=== PATIENT | female | born 1945 | race Caucasian/White ===

== ENCOUNTER 2018-07-25 08:07 | Outpatient (REF) | payer MEDICARE, BC, SELFPAY ==
[2018-07-25 13:54] LABS: Anion Gap 6.5 mmol/L (3-11); BUN 10 mg/dL (7-18); CO2 30.5 mmol/L (21.0-32.0); CREATININE 0.71 mg/dL (0.55-1.02); Calcium 8.9 mg/dL (8.5-10.1); Chloride 102 mmol/L (98-107); Cholesterol 194 mg/dL (50-200); Glucose 94 mg/dL (70-100); HDL Cholesterol 91 mg/dL (40-60); LDL CHOLESTEROL 99 mg/dL (<100); Potassium 3.8 mmol/L (3.5-5.1); Sodium 139 mmol/L (136-145); Triglyceride 51 mg/dL (30-150)
== END 2018-07-25 08:27 ==
LOC: NCHCN 08:07
PROVIDERS: PCP Internal Medicine; Visit Provider Family Medicine
DX: I10 Essential (primary) hypertension (principal); Z13.6 Encounter for screening for cardiovascular disorders; Z13.1 Encounter for screening for diabetes mellitus
CPT/HCPCS: 80048; 80061; 83721

== ENCOUNTER 2019-11-09 10:45 | Outpatient (REF) | payer MEDICARE, BC, SELFPAY ==
[2019-11-09 12:39] LABS: HCT 43.3 % (36.0-46.0); HGB 13.9 g/dL (12.0-15.5); Mean Corp. HGB Concentration 32.1 g/dL (32.0-36.0); Mean Corpuscular Hemoglobin 30.3 pg (27.0-33.0); Mean Corpuscular Volume 94.5 fL (80-95); Mean Platelet Volume 10.5 fL (8.0-11.0); Platelet Count 221 x1000/uL (130-400); RBC 4.58 m/cumm (4.00-5.20); RBC Distribution Width 13.7 % (11.7-14.6); White Blood Cell Count 9.08 k/cumm (4.4-10.8)
[2019-11-09 13:06] LABS: ALT 17 U/L (14-59); AST 13 U/L (15-37); Albumin 3.7 g/dL (3.4-5.0); Alkaline Phosphatase 72 U/L (46-116); Anion Gap 4.8 mmol/L (3-11); BUN 15 mg/dL (7-18); Bilirubin, Total 1.3 mg/dL (0.2-1.0); CO2 33.2 mmol/L (21.0-32.0); CREATININE 0.63 mg/dL (0.55-1.02); Calcium 9.2 mg/dL (8.5-10.1); Calculated LDL 86 mg/dL; Chloride 104 mmol/L (98-107); Cholesterol 186 mg/dL (<200); Glucose 92 mg/dL (74-106); HDL Cholesterol 94 mg/dL (40-60); Potassium 4.4 mmol/L (3.5-5.1); Sodium 142 mmol/L (136-145); TSH (W/Ref FT4) 1.55 uIU/mL (0.36-3.74); Total Protein 6.6 g/dL (6.4-8.2); Triglyceride 34 mg/dL (<150)
== END 2019-11-09 11:05 ==
LOC: NCHCN 10:45
PROVIDERS: PCP Internal Medicine; Visit Provider Family Medicine
DX: E03.9 Hypothyroidism, unspecified (principal); I10 Essential (primary) hypertension; R53.83 Other fatigue; R30.0 Dysuria
CPT/HCPCS: 80053; 80061; 85027; 87077; 84443; 87086; 87186

== ENCOUNTER 2020-08-06 01:26 | Outpatient (CLI) | payer MEDICARE, BC, SELFPAY ==
--- NOTE | 2020-08-06 10:20 | ST.MBS_ITS ---
Modified Barium Swallow Date of service: 08/06/20 Study Findings: HPI: Patient is a 74 year old female, referred for VFSS/MBSS given reported worsening swallow function. 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 Pooling of residue in the cervical esophagus at the level of C5-C6 with occasional retrograde flow into the pyriform sinuses, cleared well with liquid wash. No laryngeal penetration/aspiration occurred on any of the administered consistencies. A 13 mm barium pill paused briefly at the GE junction before passing into the stomach. Overall, no significant change relative to previous exam dated 09/26/06. Per [facility] General Surgery documentation: (09/30/2010) Patient has been evaluated for a hoarse voice, was found to have functioning cords, and a 'weak soft palate'. 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 Patient assessed by FOOD SERVICE COUNTER CLERK in outpatient setting on 06/26/2020 for clinical swallowing evaluation and patient motivational interview. (See report dated 06/26/20 for further details) Subjective: frequent nasal regurgitation and increased effort with swallowing liquids, solids, and pills; globus when eating solid foods, occ coughing when eating/drinking; reports not drinking fluids during meals, only drinking liquids after completely finishing solid intake, given previous diagnosis of 'gastric dumping', patient notes this strategy along with maintaining a strict diet including gluten free foods, has greatly helped her GI symptoms at this time. Patient also reports longstanding history of xerostomia, partially managed with biotene however not consistently helpful, as well as dysguesia. Reports more frequent muscle fasciculations on L side of chin. EAT-10: 22 PILL-5: 3 Objective: Videofluoroscopic Swallow Study (VFSS) was conducted in the lateral and [id number] projections by Speech-Language Pathologist, in collaboration with Radiologist, to evaluate oropharyngeal swallow function. Anatomic view under fluoroscopy: WNL PO barium contrast trials: Oral barium Oral water soluble contrast was administered. Specifically, thin liquid EZPaque (60% w/v), Varibar nectar/mildly thick liquid (40% w/v), Varibar thin honey (moderately-thick) liquid (40% w/v), Varibar pudding (40% w/v), and solid coated in Varibar pudding. Of note: 40% w/v thin liquid oral barium/water soluble contrast not available at time of exam. Oral phase findings: Lip closure: WNL Tongue control:WNL Bolus preparation:WNL Oral residue:None Pharyngeal phase findings: Initiation of swallow: WNL Velar elevation: palatopharyngeal incompetence notable with larger bolus volumes and/or increase in rate of intake with thin liquids Laryngeal elevation: Mildy impaired Anterior hyoid excursion: Mildy impaired Epiglottic movement: WNL Laryngeal vestibule closure: WNL Pharyngeal stripping wave: mildly impaired Pharyngeal contraction: mildly impaired PES opening: mild-moderately impaired BOT retraction: mildly impaired Pharyngeal residue: Mild vallecular & pyriform sinus residue w/ thin liquid, which increased to a mild-moderate volume w/ more viscous consistencies and regular solid Esophageal findings: NOTE: This study was performed for interpretation only of the oropharyngeal and pharyngoesophageal domains of swallowing. It is not intended to diagnose any other radiologic abnormalities or substitute for a formal esophagram study. Esophageal clearance: Abnormal screening warranting further workup of esophageal motility; retention of contrast within the entire proximal-distal esophagus; roldan spect impaired peristalsis IDDSI Level 8-point Penetration-Aspiration Scale (PAS) [place] Pharyngeal Residue Severity Rating Scale [Valleculae/Pyriform Sinus] 0 - Thin liquid 2; penetration during swallo w with larger volume, spontaneously ejected from the larynx with initiation of swallow 3/3 1 - Slightly thick DNT DNT 2 - Mildly Thick 2; penetration during swallo w with larger volume, spontaneously ejected from the larynx with initiation of swallow 2/3 3- Moderately thick/Liquidised 1 3/2 4 - Extremely Thick/Pureed 1 4/2 5 - Minced & Moist DNT DNT 6 - Soft & Bite-Sized DNT DNT 7 - Regular/Wnvg-[id number]-Mjfx DNT DNT 7 - Regular 1 5/2 [13mm barium pill] DNT DNT Compensatory Swallow Strategies: Reduced bolus volume - effective in reducing pharyngeal residue, nasal regurgitation Reduced rate of intake - effective in reducing pharyngeal residue, nasal regurgitation Secondary swallow x1 - mildly effective in reducing pharyngeal residue Secondary swallow x2 - somewhat effective in reducing pharyngeal residue Thin liquid wash - most effective in reducing pharyngeal residue of thin/mildly/moderately thick liquids/pudding/solid Dysphagia Outcome and Severity Scale (ARAVIND): 5-6 Assessment: Swallow efficiency is significantly impaired, though swallow safety is preserved. Mild-moderate pharyngoesophageal dysphagia characterized by mild nasal regurgitation (palatopharyngeal incompetency notable once swallow is initiated), varied level of vallecular and pyriform sinus residue with all trialed consistencies; occasional laryngeal penetration; no evidence of aspiration with any trialed consistencies; pharyngoesophageal dysphagia likely due to late effects of radiation treatment s/p Hodgkin's Lymphoma, marked by diffuse/bilateral pharyngeal weakness. Abnormal esophageal clearance during screening, c/w suspected esophageal dysphagia warranting GI workup for suspected impaired esophageal motility. Some progressive changes noted relative to previous swallow physiology. Swallow prognosis is good-fair pending patient training in effective swallowing strategies as outlined, possible candidacy for palatal lift as appropriate. Plan: Diet recommendation: Regular solid (IDDSI Level 7)/Thin Liquid (IDDSI Level 0) diet. Solid diet modification is per pt?s preference; adjust solid diet at pt?s discretion. Risk management: Behavioral reflux precautions, including upright position during + 90 mins after meals. Follow intake of pill with secondary dry swallow and/or pause+thin liquid wash; may benefit from digital occlusion of nares to reduce nasal regurgitation. small bites/sips, alternate solid/liquid as able in context of gastric dumping recommendations from previous provider, multiple swallows per bolus. Control risk factors for aspiration pneumonia via (a) oral hygiene & (b) maintaining physical mobility as tolerated Specialist referrals: Gastroenterology evaluation for suspected changes in esophageal dysphagia. Outpatient FOOD SERVICE COUNTER CLERK to address pharyngoesophageal dysphagia management and training as appropriate, further assessment of articulation/resonance; may consider ENT or Cardiologist consult given hypernasal and mildly rough/hoarse vocal quality, pending motivational interview with FOOD SERVICE COUNTER CLERK. Ancillary tests: Consider Barium Esophagram and/or High Resolution Esophageal Manometry. Therapy: Recommend subsequent outpatient session with FOOD SERVICE COUNTER CLERK to review results of today's exam and develop treatment plan as appropriate. May address the following: trial of digital pressure manipulation techniques and/or compensatory swallowing strategies to address nasal regurgitation, discussion of palatal lift prosthesis and appropriate specialist referral(s); possible rationale for use of amplification device to address intelligibility in social/occupational environments, etc. Goal: N/A Follow-up exam: N/A Thank you for allowing me to take part in this patient's care. Please feel free to contact me with any questions/concerns. Melissa Zhao MA [facility]-FOOD SERVICE COUNTER CLERK Speech-Language Pathologist [place]#[phone] FOOD SERVICE COUNTER CLERK Service Code(s): Modified Barium Swallow Study 48656
--- NOTE | 2020-08-06 11:19 | DI.RAD_ITS ---
TECHNIQUE: Modified barium swallow was performed in conjunction with speech pathology. CONTRAST MATERIAL: Oral barium Oral water soluble contrast was administered. COMPARISON: No exams were available for comparison FINDINGS: Note that this is not a dedicated esophagram, distal esophagus not evaluated. There is no evidence of aspiration of thick or thin liquids, and barium coated semi-solid and solid f oods. Penetration of thin liquids was noted. Speech pathology report to follow. IMPRESSION: No evidence of aspiration. Speech pathology report to follow.
[2020-08-06] MEDS: Barium Sulfate Oral Paste 40% W/V 230 ML TUBE PO (11:23)
[2020-08-06] MEDS: Barium Sulfate 60% W/V 355 ML BTL PO (11:26)
--- NOTE | 2020-08-28 14:50 | AMB.SPSTP ---
Date of Service August 28, 2020 Subjective Patient arrived early for session, reports pain in lower right back (substantial in AM at 8/10, reduced to 5-6/10 with 2 Tylenol) per report, however willing to participate in motivational interview and review of MBSS/VFSS results with accompanying video recordings. Pt took part in discussion re: recommendations for both pharyngoesophageal swallow function efficiency and comfort, as well as potential directions to address speech (articulation/resonance) difficulties related to palatopharyngeal incompetence. Pt agreeable to all recommendations as reviewed today, however stated she may wait until COVID is over to address more appts right away, although she is glad to know that there are options to address her speech/swallowing concerns. Objective Pharmaceutical Representative Goals: N/A Short Term Goals: N/A Assessment Patient administered MARK [Speech Handicap Index]: 37/90, with 0=no difficulty and 90= severe difficulty Dysguesia rated on scale of 1-10 (10=Normal/baseline) Smell: 7-8/10 Taste: 7-8/10 Reports recent change/decline from baseline in past ~4 years. Patient continues to demonstrate pharyngoesophageal dysphagia per MBSS/VFSS (see [facility] CHINESE LANGUAGE PROFESSOR report dated 08/06/20) as well as hypernasal speech patterns likely related to palatopharyngeal incompetence s/p radiation hx for Hodgkin's Lymphoma; pt is open to trialing behavioral strategies for both speech/swallowing improvements as outlined today; patient will likely benefit from GI consult for repeat esophagram (per documentation and patient interview, last esophagram was approx. 10 years ago), rn review to inquire re: candidacy for palatal prosthesis as appropriate, and use of vocal amplification device per availability as compensatory technique for functional communication tasks (on the telephone, etc). 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 Patient does benefit from use of increased vocal intensity, conscious exaggeration of words with identified (aforementioned) phonemes, and reduced rate of speech to compensate for this articulatory issue, patient likely to benefit from further CHINESE LANGUAGE PROFESSOR services once velar and esophageal deficiencies are addressed, likely mechanically, given report of atrophied velum and history of esophageal difficulties. Patient is able to demonstrate all reviewed compensatory strategies as outlined today with 100% return demonstration and/or comprehension, and instructed to contact PCP or CHINESE LANGUAGE PROFESSOR if further concerns or questions arise re: speech/swallowing changes. Recommendations: 1. Recommend GI consult; consider esophagram given outcomes from most recent modified barium swallow study performed 08/06/20 2. Consider following strategies for improving efficiency of swallow: plug nose when attempting larger volumes and/or drinking more quickly (ie successive drinks, or through a straw) to address the pressure imbalance you are experiencing from your soft palate weakness; consider 2-3 additional swallows after each bite or at least after taking pills if only able to take with thin liquids - follow with conscious hard and fast swallow. 3. Consider consulting with a Fish Cutting Machine Operator to inquire re: candidacy for palatal prosthesis as appropriate 4. Consider the LESS strategy we discussed when speaking, or you might try looking for a voice amplification system (can be found online) to use in the meantime to help with increasing the volume of the phonemes/words you are having difficulty with, to see if this helps with communication in the meantime. We also touched base on some diaphragmatic breathing techniques and discussed benefits of RMST if you are interested in the future, to address your cough strength. Plan No further CHINESE LANGUAGE PROFESSOR services warranted at this time, however patient may benefit from further CHINESE LANGUAGE PROFESSOR services if/when she decides to move forward with any kind of palatal prosthesis or if changes with her swallowing function occur/if she decides she is interested in exploring RMST or further pharyngeal swallow exercises after GI consult. Thank you for allowing me to take part in Payton's care. Please feel free to reach out with any questions/concerns. Melissa Zhao MA [facility]-CHINESE LANGUAGE PROFESSOR CHINESE LANGUAGE PROFESSOR Service Codes: 19240, [id number] Coding
== END 2020-08-06 01:46 ==
PROVIDERS: PCP Internal Medicine; Visit Provider Family Medicine
DX: R13.14 Dysphagia, pharyngoesophageal phase (principal)
CPT/HCPCS: 92526; 92611; 74221; 92507; J3490

== ENCOUNTER 2020-12-24 13:49 | Outpatient (REF) | payer MEDICARE, BC, SELFPAY | END 2020-12-24 13:50 | disposition home or self-care (01) | LOC: NCHCN 13:49 | PROVIDERS: PCP Internal Medicine; Visit Provider Family Medicine | DX: R30.0 Dysuria (principal) | CPT/HCPCS: 87086 ==

== ENCOUNTER 2021-03-10 01:45 | Outpatient (CLI) | payer MEDICARE, BC, SELFPAY ==
--- NOTE | 2021-03-10 | DI.US_ITS ---
EXAM: US SOFT TISSUE HEAD OR NECK CLINICAL HISTORY: NECK MASS, R22.1. TECHNIQUE: Ultrasound was performed using standard protocol. COMPARISON: No exams were available for comparison FINDINGS: Sonographic assessment utilizing grayscale and color Doppler imaging was performed and targeted to th e area of clinical concern. The patient appears to be status post right thyroidectomy. There is soft tissue on the left consiste nt with residual thyroid tissue. It measures 2.6 x 1.5 x 1.8 cm. It shows normal vascularity. It i s heterogeneous. There is a 0.8 x 0.6 x 0.8 cm solid isoechoic well-marginated nodule in the left th yroid gland. This is consistent with a TI-RADS level 3 nodule. Benign-appearing lymph nodes are seen in the neck bilaterally. The largest on the left measures 0.8 x 0.2 x 0.6 cm. The largest on the right measures 0.9 x 0.2 x 0.7 cm. IMPRESSION: 1. Status post right thyroidectomy. Please correlate with the patient's surgical history. 2. Residual left thyroid tissue with a 0.8 cm left thyroid nodule. 3. Unremarkable bilateral lymph nodes. DATA REPOSITORY:
--- NOTE | 2021-03-10 14:24 | DI.MAMMO_ITS ---
EXAM: MG MAMMO SCREENING CLINICAL HISTORY: SCREENING, Z12.31. TECHNIQUE: Bilateral full field digital CC and MLO mammographic images were obtained with 3D tomosyn thesis and utilizing computer aided detection (CAD). COMPARISON: Prior mammograms dating back to 2013, the most recent being January 2018. FINDINGS: There are no CAD designations There are no new spiculated masses nor malignant appearing microcalcification groups. There is no significant architectural distortion nor skin thickening-retraction. IMPRESSION: No radiographic evidence of malignancy. BI-RADS Category 1 - Negative Breast Density - Category B - Scattered areas of fibroglandular density Breast density Category C or D implies that the patient has dense breast tissue. Dense breast tissue can make it harder to find cancer on a mammogram. Dense breast tissue is also associated with an incr eased risk of breast cancer. This information about the result of the mammogram report was provided to the patient to raise their awareness. Use this report when you speak with the patient about their risks for breast cancer, which includes their family history. At that time, you may recommend additional screening tests (Ultrasoun d or MRI) as these tests may add significant information. A negative radiographic report should not delay biopsy if a dominant or clinically suspicious mass is present. Up to ten percent of cancers are not identified on mammography. A negative report may reinforce clinical impression. Adenosis and dense breasts may obscure an underlying neoplasm. False positive reports average 6 to 10%. Patient will receive a letter notifying them of these results.
== END 2021-03-10 02:05 ==
PROVIDERS: PCP Family Medicine; Visit Provider Family Medicine
DX: Z12.31 Encounter for screening mammogram for malignant neoplasm of breast (principal); R22.1 Localized swelling, mass and lump, neck; E04.1 Nontoxic single thyroid nodule
CPT/HCPCS: 76536; 77063; 77067

== ENCOUNTER 2021-06-30 13:16 | Outpatient (REF) | payer MEDICARE, BC, SELFPAY | END 2021-06-30 13:17 | disposition home or self-care (01) | LOC: NCHCN 13:16 | PROVIDERS: PCP Family Medicine; Visit Provider Family Medicine | DX: R30.0 Dysuria (principal) | CPT/HCPCS: 87086 ==

== ENCOUNTER 2021-09-09 22:01 | Outpatient (REF) | payer MEDICARE, BC, SELFPAY | END 2021-09-09 22:02 | disposition home or self-care (01) | LOC: NCHCN 22:01 | PROVIDERS: PCP Family Medicine; Visit Provider Family Medicine | DX: R30.0 Dysuria (principal) | CPT/HCPCS: 87086 ==

== ENCOUNTER 2021-11-18 08:44 | Outpatient (REF) | payer MEDICARE, BC, SELFPAY ==
[2021-11-18 16:02] LABS: ALT 19 U/L (14-59); AST 16 U/L (15-37); Albumin 3.9 g/dL (3.4-5.0); Alkaline Phosphatase 64 U/L (46-116); Anion Gap 7.1 mmol/L (3-11); BUN 26 mg/dL (7-18); Bilirubin, Total 1.3 mg/dL (0.2-1.0); CO2 31.9 mmol/L (21.0-32.0); CREATININE 0.7 mg/dL (0.55-1.02); Calcium 9.3 mg/dL (8.5-10.1); Calculated LDL 105 mg/dL (<100); Chloride 103 mmol/L (98-107); Cholesterol 214 mg/dL (<200); Glucose 90 mg/dL (74-106); HDL Cholesterol 101 mg/dL (40-60); Potassium 4.4 mmol/L (3.5-5.1); Sodium 142 mmol/L (136-145); Total Protein 6.7 g/dL (6.4-8.2); Triglyceride 42 mg/dL (<150)
== END 2021-11-18 08:45 | disposition home or self-care (01) ==
LOC: NCHCN 08:44
PROVIDERS: PCP Family Medicine; Visit Provider Family Medicine
DX: I10 Essential (primary) hypertension (principal); R53.1 Weakness; E20.9 Hypoparathyroidism, unspecified; Z00.00 Encounter for general adult medical examination without abnormal findings
CPT/HCPCS: 80053; 80061

== ENCOUNTER 2022-05-03 09:12 | Inpatient (IN) | payer MEDICARE, BC, SELFPAY ==
[2022-05-03] VITALS (100 sets, daily range): BP systolic 80–133; BP diastolic 44–78; PULSE 57–79; RESP 11–25; TEMP 36.4–37.9; O2SAT 90–100
[2022-05-03 10:02] LABS: Abs Immature Grans 0.04 10^3/uL (0.0-0.06); Absolute Basophil Count 0.02 10^3/uL (0.0-0.2); Absolute Lymphocyte Count 0.26 10^3/uL (1.2-3.4); Absolute Monocyte Count 0.44 10^3/uL (0.1-0.8); Absolute Neutrophil Count 9.26 10^3/uL (1.2-6.7); Basophils % 0.2; HCT 28.9 % (36.0-46.0); HGB 9.3 g/dL (11.2-15.7); Immature Grans % 0.4; Lymphocytes % 2.6; MCH 30.5 pg (27.0-33.0); MCHC 32.2 % (32.0-36.0); MCV 95 fL (80-95); MPV 9.7 fL (8.0-11.0); Monocytes % 4.4; Neutrophils % 92.4; Platelet Count 194 10^3/uL (130-400); RBC 3.05 10^6/uL (3.93-5.22); RDW 13.4 % (11.7-14.6); RDW-SD 46.6 fL; WBC 10.02 10^3/uL (4.4-10.8)
[2022-05-03] MEDS: Normal Saline 500 ML IV ×2 (10:05→10:53)
[2022-05-03 10:11] LABS: Lactate 1.2 mmol/L (0.6-1.4)
--- NOTE | 2022-05-03 10:11 | W.ED.GENAD ---
Discharge Plan Disposition Patient Disposition: [facility] INPATIENT Condition: Fair Discharge Details Chief Complaint: GI Bleed Clinical Impression: GI bleed Admit Date/Time: 05/03/22 11:29 Admit Provider: Mabel Manzano Attending Provider: Mabel Manzano Primary Care Provider: Gloria Fischer ED Provider: Eveiln Ruiz Discharge Instructions Activity:: Activity as Tolerated Equipment/Supplies:: No Equipment Needed Diet:: Normal Diet Discharge Data Discharge Date/Time-TO BE ENTERED AT DEPARTURE: 05/03/22 12:02 Medical Decision Making Payton Thomas is a 76-year-old woman with a history of hypertension, hypothyroidism presenting to emergency department with rectal bleeding. Patient is accompanied by a family member who also provides a history. Patient reports that for the past 4 or 5 days she has had bright red blood mixed in with her stool. Patient reports that her bowel movements seem to be mostly bright red blood at this point. She has not noticed any dark or black stool. She has had no pain, no vomiting, no shortness of breath no cough no swelling no rash no numbness, no focal weakness. Patient reports that over the past few days she has felt generally weak. She has never had rectal bleeding in the past. Patient reports that she falls frequently, and has been doing so over the past year. Patient reports that she does not hit her head and never loses consciousness. She is unsure whether falls are due to tripping (mechanical) versus feeling lightheaded. Patient reports that falls have not increased or change in the past few weeks, did have a fall on her driveway a few days ago, did not hit her head, did not lose consciousness, reports no pain or injuries. Patient reports that she has difficulty swallowing at baseline, and has had decreased p.o. intake over the past few months in general. Has had some weight loss over that time. On exam patient is somewhat pale, nontoxic-appearing, alert, conversing normally. Abdominal exam is benign. Rectal exam shows a moderate amount of hematochezia. Blood pressure 80/45. Concern for lower GI bleed versus upper GI bleed, possible dehydration, other. Exam/history at this time is not consistent with arrhythmia, acute emergent intracranial process, sepsis, mesenteric ischemia, acute coronary syndrome. Plan for 2 18-gauge IVs, 500 cc normal saline, 1 unit uncrossed blood, screening labs, telemetry, Protonix out of abundance of caution as low suspicion for upper versus lower GI bleed. Plan for emergent uncrossed blood as patient with significant hypotension in setting of apparent active GI bleed of unknown source. Patient with hemoglobin 9.3. Will give additional 500 cc of normal saline as dehydration may also be contributing to patient's hypotension, would expect lower hemoglobin at this time given 4 to 5 days of consistent bleeding if hypotension from hemorrhage alone. I discussed patient presentation results with Dr. Manzano of surgery, who requested TXA be given, will see patient at bedside. Patient with persistent hypotension, systolic blood pressure 80. Vasopressin ordered pending fluid boluses. Systolic blood pressure 93. We will hold vasopressin at this time. Dr. Manzano at bedside, will admit patient to ICU for likely diverticular bleed. Systolic blood pressure now 107. Medical Records Medical records reviewed: Yes I reviewed the patient's medical records. Lab Data Lab results reviewed: Yes I reviewed the patient's lab results. Labs: Laboratory Tests Range/Units 05/03/22 05/03/22 05/03/22 09:53 09:53 09:53 WBC (4.4-10.8) 10^3/uL 10.02 RBC (3.93-5.22) 10^6/uL 3.05 L Hgb (11.2-15.7) g/dL 9.3 L Hct (36.0-46.0) % 28.9 L MCV (80-95) fL 95 MCH (27.0-33.0) pg 30.5 MCHC (32.0-36.0) % 32.2 RDW (11.7-14.6) % 13.4 Plt Count (130-400) 10^3/uL 194 MPV (8.0-11.0) fL 9.7 Immature Gran % 0.4 Neutrophils % 92.4 Lymphocytes % 2.6 Monocytes % 4.4 Eosinophils % 0.0 Basophils % 0.2 Nucleated RBC % (0.0-0.3) % 0.0 Absolute Neutrophils (1.2-6.7) 10^3/uL 9.26 H Absolute Lymphocytes (1.2-3.4) 10^3/uL 0.26 L Absolute Monocytes (0.1-0.8) 10^3/uL 0.44 Absolute Eosinophils (0.0-0.7) 10^3/uL 0.00 Absolute Basophils (0.0-0.2) 10^3/uL 0.02 PT (9.3-11.0) sec 9.9 INR (0.9-1.1) 1.0 VBG Lactate (0.6-1.4) mmol/L Sodium (136-145) mmol/L 136 Potassium (3.5-5.1) mmol/L 4.0 Chloride (98-107) mmol/L 102 Carbon Dioxide (21.0-32.0) mmol/L 26.1 Anion Gap (3-11) mmol/L 7.9 BUN (7-18) mg/dL 30 H Creatinine (0.55-1.02) mg/dL 1.0 Estimated GFR/1.73 m2 (mL/min/1.73m2) 54.05 Glucose (74-106) mg/dL 133 H Calcium (8.5-10.1) mg/dL 8.4 L Total Bilirubin (0.2-1.0) mg/dL 0.9 AST (15-37) U/L 11 L ALT (14-59) U/L 14 Alkaline Phosphatase (46-116) U/L 41 L Total Protein (6.4-8.2) g/dL 5.5 L Albumin (3.4-5.0) g/dL 2.9 L TSH (0.36-3.74) uIU/mL Free T4 (0.76-1.46) ng/dL COVID-19 Source Patient ABO/Rh Antibody Screen Crossmatch Range/Units 05/03/22 05/03/22 05/03/22 09:53 09:58 10:04 WBC (4.4-10.8) 10^3/uL RBC (3.93-5.22) 10^6/uL Hgb (11.2-15.7) g/dL Hct (36.0-46.0) % MCV (80-95) fL MCH (27.0-33.0) pg MCHC (32.0-36.0) % RDW (11.7-14.6) % Plt Count (130-400) 10^3/uL MPV (8.0-11.0) fL Immature Gran % Neutrophils % Lymphocytes % Monocytes % Eosinophils % Basophils % Nucleated RBC % (0.0-0.3) % Absolute Neutrophils (1.2-6.7) 10^3/uL Absolute Lymphocytes (1.2-3.4) 10^3/uL Absolute Monocytes (0.1-0.8) 10^3/uL Absolute Eosinophils (0.0-0.7) 10^3/uL Absolute Basophils (0.0-0.2) 10^3/uL PT (9.3-11.0) sec INR (0.9-1.1) VBG Lactate (0.6-1.4) mmol/L 1.2 Sodium (136-145) mmol/L Potassium (3.5-5.1) mmol/L Chloride (98-107) mmol/L Carbon Dioxide (21.0-32.0) mmol/L Anion Gap (3-11) mmol/L BUN (7-18) mg/dL Creatinine (0.55-1.02) mg/dL Estimated GFR/1.73 m2 (mL/min/1.73m2) Glucose (74-106) mg/dL Calcium (8.5-10.1) mg/dL Total Bilirubin (0.2-1.0) mg/dL AST (15-37) U/L ALT (14-59) U/L Alkaline Phosphatase (46-116) U/L Total Protein (6.4-8.2) g/dL Albumin (3.4-5.0) g/dL TSH (0.36-3.74) uIU/mL 0.31 L Free T4 (0.76-1.46) ng/dL 1.38 COVID-19 Source Patient ABO/Rh O Positive Antibody Screen NEGATIVE Crossmatch See Detail Range/Units 05/03/22 11:32 WBC (4.4-10.8) 10^3/uL RBC (3.93-5.22) 10^6/uL Hgb (11.2-15.7) g/dL Hct (36.0-46.0) % MCV (80-95) fL MCH (27.0-33.0) pg MCHC (32.0-36.0) % RDW (11.7-14.6) % Plt Count (130-400) 10^3/uL MPV (8.0-11.0) fL Immature Gran % Neutrophils % Lymphocytes % Monocytes % Eosinophils % Basophils % Nucleated RBC % (0.0-0.3) % Absolute Neutrophils (1.2-6.7) 10^3/uL Absolute Lymphocytes (1.2-3.4) 10^3/uL Absolute Monocytes (0.1-0.8) 10^3/uL Absolute Eosinophils (0.0-0.7) 10^3/uL Absolute Basophils (0.0-0.2) 10^3/uL PT (9.3-11.0) sec INR (0.9-1.1) VBG Lactate (0.6-1.4) mmol/L Sodium (136-145) mmol/L Potassium (3.5-5.1) mmol/L Chloride (98-107) mmol/L Carbon Dioxide (21.0-32.0) mmol/L Anion Gap (3-11) mmol/L BUN (7-18) mg/dL Creatinine (0.55-1.02) mg/dL Estimated GFR/1.73 m2 (mL/min/1.73m2) Glucose (74-106) mg/dL Calcium (8.5-10.1) mg/dL Total Bilirubin (0.2-1.0) mg/dL AST (15-37) U/L ALT (14-59) U/L Alkaline Phosphatase (46-116) U/L Total Protein (6.4-8.2) g/dL Albumin (3.4-5.0) g/dL TSH (0.36-3.74) uIU/mL Free T4 (0.76-1.46) ng/dL COVID-19 Source Nasal/Nares Patient ABO/Rh Antibody Screen Crossmatch HPI General Mode of arrival: ambulatory. Date/Time Provider Initiated Documentation: 05/03/22 09:31. Limitations to Documentation: no limitations. Information obtained by: patient, family, RN notes reviewed and old records reviewed. HPI Narrative: Payton Thomas is a 76-year-old woman with a history of hypertension, hypothyroidism presenting to emergency department with rectal bleeding. Patient is accompanied by a family member who also provides a history. Patient reports that for the past 4 or 5 days she has had bright red blood mixed in with her stool. Patient reports that her bowel movements seem to be mostly bright red blood at this point. She has not noticed any dark or black stool. She has had no pain, no vomiting, no shortness of breath no cough no swelling no rash no numbness, no focal weakness. Patient reports that over the past few days she has felt generally weak. She has never had rectal bleeding in the past. Patient reports that she falls frequently, and has been doing so over the past year. Patient reports that she does not hit her head and never loses consciousness. She is unsure whether falls are due to tripping (mechanical) versus feeling lightheaded. Patient reports that falls have not increased or change in the past few weeks, did have a fall on her driveway a few days ago, did not hit her head, did not lose consciousness, reports no pain or injuries. Patient reports that she has difficulty swallowing at baseline, and has had decreased p.o. intake over the past few months in general. Has had some weight loss over that time. Related Data Home Medications Medication Instructions Recorded Confirmed levothyroxine 150 mcg tablet 150 mcg PO DAILY 08/19/14 05/03/22 lisinopril 10 mg tablet 10 mg PO DAILY 08/19/14 05/03/22 acetaminophen 650 mg tablet 1,300 mg PO BID PRN 05/03/22 05/03/22 aspirin 81 mg tablet 81 mg PO DAILY 05/03/22 05/03/22 cholecalciferol (vitamin D3) 25 2 tab PO DAILY 05/03/22 05/03/22 mcg (1,000 unit) tablet ibuprofen 200 mg tablet (IBU-200) 400 mg PO Q4-5H PRN 05/03/22 05/03/22 Allergies Allergy/AdvReac Type Severity Reaction Status Date / Time No Known Allergies Allergy Unverified 05/03/22 11:26 General Stated Complaint: GI Bleed DAMON: 3 Review of Systems Narrative: Constitutional: denies fevers, reports generalized weakness, decreased appetite Eyes: denies eye pain ENT: denies ear pain, dental pain, sore throat Cardiovascular: denies chest pain, edema Respiratory: denies SOB, cough GI: denies abdominal pain, vomiting, diarrhea, reports bright red blood per rectum : denies flank pain MSK: denies back pain, neck pain, arthralgias, myalgias Skin: denies rash Neuro: denies headaches, numbness, focal weakness PFSH All Active Problems (Updated 05/05/22 @ 14:37 by Evelin Ruiz MD) GI bleed (Chronic) Postcholecystectomy diarrhea (Acute) Disorder of palatine bone (Acute) Pharyngoesophageal dysphagia (Acute) Hypotension due to blood loss (Acute) Anemia due to blood loss, acute (Acute) Acute lower GI bleeding (Acute) Diverticula of colon (Acute) Hypertension (Chronic) Hypothyroidism (Chronic) H/O Hodgkin's lymphoma (Chronic) Medical History History of Hodgkin's disease Hypertension Hypothyroidism Surgical History Cholecystectomy H/O surgical procedure (10/24/14) a. cholecystectomy 10/25/14 S/P hernia repair Status post laparoscopic repair of epigastric port hernia w/ mesh. following cholecystectomy in 2014 thyroidectomy Social History Smoking/Tobacco Use Status: Former Tobacco Use Smoking risk assessment performed?: Yes Alcohol Intake: current Alcohol Intake frequency: holidays/special occasions only Alcohol type: wine Drug use: Never Substance use type: does not use Do you feel safe at home: Yes Do you feel safe in your relationship?: Yes Exam Narrative Exam Narrative: Constitutional: well and [id number], pleasant, conversing normally HENT: head atraumatic/normocephalic/normal inspection, mucous membranes moist Eyes: conjunctiva normal, sclera normal, pupils 3mm b/l Neck: no stridor, normal ROM, trachea midline Chest: normal inspection Resp: normal work of breathing, speaking in full sentences Cardio: normal rate, normal rhythm GI: abdomen soft, non-tender, non-distended, rectal exam shows no hemorrhoids, positive for gross hematochezia, no melena Back: normal inspection, no rash Skin: warm, dry, normal color, no rash Neuro: alert, not altered, grossly non-focal, normal tone Ext: no edema, no posterior calf tenderness to palpation, DP pulses intact and symmetric Psych: normal mood, normal affect, normal behavior Course Vital Signs Vital signs: Vital Signs Temperature 36.8 C 05/03/22 09:19 Pulse 77 05/03/22 09:19 Respiratory Rate 16 05/03/22 09:19 Blood Pressure 89/57 L 05/03/22 09:19 Pulse Oximetry 97 05/03/22 09:19 Temperature 36.8 C 05/03/22 09:19 Temperature Source Temporal Artery Scan 05/03/22 09:19 Pulse 77 05/03/22 09:19 Respiratory Rate 16 05/03/22 09:19 Respiratory Effort Non-Labored 05/03/22 09:25 Blood Pressure 89/57 L 05/03/22 09:19 Blood Pressure Position Supine 05/03/22 09:19 Pulse Oximetry 97 05/03/22 09:19 Oxygen Delivery Method Room Air 05/03/22 09:19 Oxygen Flow Rate 0 05/03/22 09:19 Pain Level 0 05/03/22 09:25 Lab/Test Results Lab/Test Results: Laboratory Tests Range/Units 05/03/22 09:53 Crossmatch See Detail Critical Care Time Critical Care Time Critical Care Time: Yes Total Critical Care Time: 40 Attestation: I spent 40 minutes of critical care time with this patient including frequent bedside reassessments, discussion with consultants, discussion with patient and family. PAWSS Have you Been Recently Intoxicated or Drunk Within the Last 30 days?: No Have you Ever Experienced Previous Episodes of Alcohol Withdrawal?: No Have you ever Experienced Withdrawal Seizures?: No Have you ever Experienced Delirium Tremens(DT)s?: No Have you ever undergone Alcohol Rehabilitation Treatment (i.e, inpt ot outpatient treatment programs)?: No Have you ever Experienced Blackouts?: No Have you ever Combined Alcohol with other Downers within the last 90 days?: No Have you ever Combined Alcohol with any other Substance of Abuse during the last 90 days?: No Result: 0
[2022-05-03 10:19] LABS: Prothrombin Time 9.9 sec (9.3-11.0)
--- NOTE | 2022-05-03 10:19 | SCONE_ITS ---
Date of service: 05/03/22 Time of Service: 10:30 Assessment and Plan Assessment and plan (1) S/P hernia repair: (2) Hypertension: Status: Chronic (3) Hypothyroidism: Status: Chronic (4) H/O Hodgkin's lymphoma: Status: Chronic Assessment and plan: Radiation at age 16 Last mammogram was 2020 and was normal (5) Diverticula of colon: Status: Acute (6) Acute lower GI bleeding: Status: Acute Assessment and plan: -Rectal exam is negative for mass patient states she is on full dose aspirin daily. Her med list that she was on a baby aspirin daily. Patient states she was just taking it at home for on her. She denies any prior heart attack or stroke or valvular heart disease. -She has been also taking ibuprofen regularly for back pain- once or twice a week. Mostly she just takes Tylenol - anoscopy exam today is negative for tumor or hemorrhoidal disease.. Blood is dark in nature and not bright red. -She has sigmoidal diverticula noted on colonoscopy in 2013. -Patient will be admitted to the ICU for further monitoring and hemodynamic stabilization. Hopefully we will plan on colonoscopy and EGD in a.m. Informed consent is obtained for the procedural (explained in simple layman's terms that the pt. and/or family could understand) explaining risks vs benefits and alternatives to the procedure and consequences if we do not do the procedure and need/rational for the procedure. Risks include but are not limited to: bleeding, infection, perforation of esophagus, stomach, colon, small intestines, bronchus or trachea, or PTX. This would necessitate emergency surgery to repair the damage w/ possible ostomy; and other associated complications w/ the required surgery. Also complications of anesthesia including aspiration, MD/CVA/. 90 minutes spent in consultation today (7) Anemia due to blood loss, acute: Status: Acute Assessment and plan: Patient received 1 L saline bolus in ED Patient received 1 unit packed RBC in ED Patient received 1 g of TXA in ED (8) Hypotension due to blood loss: Status: Acute (9) Pharyngoesophageal dysphagia: Status: Acute Assessment and plan: - See speech recommendation from 09/02. Pt was suppose to f/u w/ speech psot- Covid. It does not appear that she did this. -speech has been re-consulted -We will plan on doing EGD in a.m. if patient is hemodynamically stable (10) Disorder of palatine bone: Status: Acute Assessment and plan: See above Speech rec: Consider following strategies for improving efficiency of swallow: plug nose when attempting larger volumes and/or drinking more quickly (ie successive drinks, or through a straw) to address the pressure imbalance you are experiencing from your soft palate weakness; consider 2-3 additional swallows after each bite or at least after taking pills if only able to take with thin liquids - follow with conscious hard and fast swallow (11) Postcholecystectomy diarrhea: Status: Acute History of Present Illness Narrative: Patient presented to the ER today feeling weak and having rectal bleeding. This has been going on for the past 4 to 5 days. She has been feeling weak and dizzy. She did receive a unit ER and states she feels much better now. She denies having any chest pain or shortness of breath. She does take a full dose baby aspirin a day. She has just been doing this on her own. She has not had a heart attack or stroke or any other heart surgeries valve replacements or other cardiac conditions. She has a history of radiation for Hodgkin's lymphoma when she was 16, over 6 years ago. 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 She admits she has not been eating well the past few weeks. She has been losing weight. She denies any changes in her bowel habits, other than the bleeding she has been having the past 4 to 5 days. The past 4 to 5 days she has not been eating at all. She denies any abdominal pain. She does not know if she has been losing weight. She has had a colon pain in the past. She states she was told everything was normal she has had a lap [place] and a ventral hernia repair. She had no problems with anesthesia to her knowledge.. She did receive a liter of saline, 1 unit of packed RBCs, and TXA in the ER. Her blood pressures had been running in the 80s. After the blood and saline they are now running in the 90s. She does require admission to the hospital and close observation. We will admit her to the ICU and continue resuscitation. Although it does appear that she has responded to the treatment that the ER initiated. If she is still hemodynamically stable will Plan colonoscopy in am. -When I did discuss with her how her bowels normally are. 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 Because there was injury to her pancreas after her hernia surgery. I do not find any reference to this in her chart anywhere. I think she just has some post Pamela diarrhea. She had to stay in the hospital 2 days after her hernia surgery because of this nausea and vomiting. I think she may have had a little bit of an ileus. I do not find any labs that support dumping. Nor has she had any surgeries that would be associated with this diagnosis. CE 2013 Impression: Sigmoid diverticula, otherwise negative exam.? Review of Systems All systems reviewed & are unremarkable except as noted in HPI and below PFSH All Active Problems (Updated 05/03/22 @ 17:24 by Mabel Manzano DO) Postcholecystectomy diarrhea (Acute) Disorder of palatine bone (Acute) Pharyngoesophageal dysphagia (Acute) Hypotension due to blood loss (Acute) Anemia due to blood loss, acute (Acute) Acute lower GI bleeding (Acute) Diverticula of colon (Acute) Hypertension (Chronic) Hypothyroidism (Chronic) H/O Hodgkin's lymphoma (Chronic) Medical History History of Hodgkin's disease Hypertension Hypothyroidism Surgical History Cholecystectomy H/O surgical procedure (10/24/14) a. cholecystectomy 10/25/14 S/P hernia repair Status post laparoscopic repair of epigastric port hernia w/ mesh. following cholecystectomy in 2014 thyroidectomy Social History Smoking/Tobacco Use Status: Former Tobacco Use Smoking risk assessment performed?: Yes Alcohol Intake: current Alcohol Intake frequency: holidays/special occasions only Alcohol type: wine Drug use: Never Substance use type: does not use Do you feel safe at home: Yes Do you feel safe in your relationship?: Yes Exam Const General: cooperative, comfortable and no acute distress Nutritional Appearance: average body habitus Orientation: alert, awake and oriented x3 HENMT Mouth: muffled voice Teeth and gingiva: multiple restorations and other (It appears that she does grind her teeth in her sleep) Other: She does appear to have a mass in the soft palate. But according to speech pathology this is related to her history of radiation. Resp Effort & Inspection: normal respiratory effort, able to speak in complete sentences and no use of accessory muscles Auscultation: clear to auscultation bilaterally Cardio Rate: regular rate GI Palpation: soft, no guarding and nontender Rectal Exam - female: normal sphincter tone Other: melana no masses or hemorrhoids Extrem General: no clubbing, cyanosis or edema Results Last Vital Signs Temp 36.8 C 05/03/22 09:19 Pulse 77 05/03/22 09:19 Resp 16 05/03/22 09:19 BP 89/57 L 05/03/22 09:19 Pulse Ox 97 05/03/22 09:19 Labs Result diagrams: 05/03/22 12:55 05/03/22 09:53 Labs: Laboratory Results - last 24 hr 05/03/22 05/03/22 05/03/22 09:53 09:53 10:04 WBC 10.02 RBC 3.05 L Hgb 9.3 L Hct 28.9 L MCV 95 MCH 30.5 MCHC 32.2 RDW 13.4 Plt Count 194 MPV 9.7 Immature Gran % 0.4 Neutrophils % 92.4 Lymphocytes % 2.6 Monocytes % 4.4 Eosinophils % 0.0 Basophils % 0.2 Nucleated RBC % 0.0 Absolute Neutrophils 9.26 H Absolute Lymphocytes 0.26 L Absolute Monocytes 0.44 Absolute Eosinophils 0.00 Absolute Basophils 0.02 VBG Lactate 1.2 Crossmatch See Detail
[2022-05-03] MEDS: Pantoprazole 40 MG VIAL 80 MG IVP (10:33)
[2022-05-03 10:38] LABS: ALT 14 U/L (14-59); AST 11 U/L (15-37); Albumin 2.9 g/dL (3.4-5.0); Alkaline Phosphatase 41 U/L (46-116); Anion Gap 7.9 mmol/L (3-11); BUN 30 mg/dL (7-18); Bilirubin, Total 0.9 mg/dL (0.2-1.0); CO2 26.1 mmol/L (21.0-32.0); Calcium 8.4 mg/dL (8.5-10.1); Chloride 102 mmol/L (98-107); Estimated GFR 54.05 (mL/min/1.73m2); Glucose 133 mg/dL (74-106); Sodium 136 mmol/L (136-145); Total Protein 5.5 g/dL (6.4-8.2)
[2022-05-03 10:58] LABS: TSH (W/Ref FT4) 0.31 uIU/mL (0.36-3.74)
[2022-05-03 11:14] LABS: FREE T4 1.38 ng/dL (0.76-1.46)
[2022-05-03 11:36] LABS: Source Nasal/Nares
[2022-05-03 12:43] LABS: COVID-19 PCR Negative (Negative)
[2022-05-03 12:49] LABS: Lab Add On Test DONE
[2022-05-03 13:14] LABS: Abs Immature Grans 0.04 10^3/uL (0.0-0.06); Absolute Basophil Count 0.02 10^3/uL (0.0-0.2); Absolute Lymphocyte Count 0.38 10^3/uL (1.2-3.4); Absolute Monocyte Count 0.52 10^3/uL (0.1-0.8); Absolute Neutrophil Count 8.54 10^3/uL (1.2-6.7); Basophils % 0.2; HCT 28.7 % (36.0-46.0); HGB 9.3 g/dL (11.2-15.7); Immature Grans % 0.4; MCH 30.5 pg (27.0-33.0); MCHC 32.4 % (32.0-36.0); MCV 94 fL (80-95); MPV 9.7 fL (8.0-11.0); Monocytes % 5.5; Neutrophils % 89.9; Platelet Count 156 10^3/uL (130-400); RBC 3.05 10^6/uL (3.93-5.22); RDW 13.8 % (11.7-14.6); RDW-SD 47.6 fL
[2022-05-03] MEDS: Lactated Ringers 1,000 ML 100 ML IV ×2 (13:29→23:36)
[2022-05-03 13:30] LABS: Ferritin 132 ng/mL (8-252)
[2022-05-03] MEDS: FAMOTIDINE 20 MG in Normal Saline 100 ML 400 MG IVPB (13:55)
[2022-05-03 15:32] LABS: Iron 12 ug/dL (50-170); Total Iron Binding Capacity 220 ug/dL (250-450); Transferrin Sat 5 % (15-50)
[2022-05-03] MEDS: Bisacodyl 5 MG TABEC 10 MG PO ×3 (15:37→23:36)
--- NOTE | 2022-05-03 16:52 | ANES.PREOP_ITS ---
General Info Date of Service Date Performed: 05/04/22 Height: 5 ft 4 in Weight: 71.3 kg Body Mass Index (BMI): 26.9 Surgical Procedure: Operation Date: 05/04/22 14:05 Proposed Procedure Side Surgeon p Colonoscopy/Gastroscopy Mabel Manzano DO Meds Allergies and Home Medications Allergies Allergy/AdvReac Type Severity Reaction Status Date / Time No Known Allergies Allergy Unverified 05/03/22 11:26 Home Medication Medication Instructions Recorded levothyroxine 150 mcg tablet 150 mcg PO DAILY 08/19/14 lisinopril 10 mg tablet 10 mg PO DAILY 08/19/14 acetaminophen 650 mg tablet 1,300 mg PO BID PRN 05/03/22 aspirin 81 mg tablet 81 mg PO DAILY 05/03/22 cholecalciferol (vitamin D3) 25 2 tab PO DAILY 05/03/22 mcg (1,000 unit) tablet ibuprofen 200 mg tablet (IBU-200) 400 mg PO Q4-5H PRN 05/03/22 Current Visit Medications: Current Medications Generic Name Dose Route Start Last Admin Trade Name Aleksq PRN Reason Stop Dose Admin Acetaminophen 650 mg 05/03/22 15:00 Acetaminophen 325 Mg Tab PO 05/03/22 23:59 TODAY MITCH Bisacodyl 10 mg 05/03/22 18:00 Bisacodyl 5 Mg Tabec PO 05/04/22 00:01 Q6H MITCH Dimethicone/Zinc Oxide 0 gm 05/03/22 11:29 Zamzam Protect Cream 142 Gm Tube TP PRN PRN Diphenhydramine HCl 25 mg 05/03/22 14:45 Diphenhydramine 25 Mg Cap PO 05/03/22 23:59 TODAY MITCH Vasopressin 100 units/ Sodium 100 mls @ 12 mls/hr 05/03/22 10:45 Chloride IV INFUSION MITCH Protocol 0.2 UNITS/MIN Sodium Chloride 500 mls @ 0 mls/hr 05/03/22 11:29 Saline 500ml Bag IV PRN PRN As Directed Ringer's Solution 1,000 mls @ 100 mls/hr 05/03/22 12:30 05/03/22 13:29 IV 100 mls/hr INFUSION MITCH Administration Famotidine 20 mg/ Sodium 102 mls @ 400 mls/hr 05/04/22 14:00 Chloride IVPB Q24H MITCH IV Miscellaneous Supplies 1 each 05/03/22 11:30 Iv Access IV DIRECTED [facility] Levothyroxine Sodium 150 mcg 05/04/22 06:00 Levothyroxine 150 Mcg Tab PO DAILY@0600 [facility] Ondansetron HCl 4 mg 05/03/22 11:38 Ondansetron 4 Mg/2 Ml Vial IVP Q4H PRN PRN Polyethylene Glycol 238 gm 05/03/22 15:00 Polyethylene Glycol 3350 238 Gm Btl PO 05/04/22 00:00 DIRECTED [facility] Sodium Chloride 0 ml 05/03/22 11:29 Normal Saline Flush 10 Ml Syr IVP PRN PRN PFSH Active Problems Active Problems: Problem Status Onset Code 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 cholecystectomy 10/25/14 S/P hernia repair Status post laparoscopic repair of epigastric port hernia w/ mesh. following cholecystectomy in 2014 thyroidectomy Tobacco Smoking/Tobacco Use Status: Former Tobacco Use Alcohol Alcohol Intake: current Alcohol intake frequency: holidays/special occasions only Alcohol type: wine Substance Use Substance use: Never Substance use type: does not use Vital Signs and Lab Results Vital Signs Most Recent Vital Signs in EMR: Most Recent Vital Signs Temp Pulse Resp BP Pulse Ox 36.6 C 64 19 99/52 L 96 05/03/22 12:17 05/03/22 14:01 05/03/22 15:00 05/03/22 14:01 05/03/22 12:17 Lab Results Result Diagrams: 05/04/22 05:21 05/03/22 09:53 Blood Type / Crossmatch: Patient ABO/Rh O Positive 05/03/22 Antibody Screen NEGATIVE 05/03/22 Crossmatch See Detail 05/03/22 Complete Blood Count: White Blood Count 9.50 10^3/uL (4.4-10.8) 05/03/22 12:55 Red Blood Count 3.05 10^6/uL (3.93-5.22) L 05/03/22 12:55 Hemoglobin 9.3 g/dL (11.2-15.7) L 05/04/22 05:21 Hematocrit 28.5 % (36.0-46.0) L 05/04/22 05:21 Platelet Count 156 10^3/uL (130-400) 05/03/22 12:55 Venous Blood Lactate 1.2 mmol/L (0.6-1.4) 05/03/22 10:04 Complete Metabolic Panel: Sodium Level 136 mmol/L (136-145) 05/03/22 09:53 Potassium Level 4.0 mmol/L (3.5-5.1) 05/03/22 09:53 Chloride Level 102 mmol/L (98-107) 05/03/22 09:53 Carbon Dioxide Level 26.1 mmol/L (21.0-32.0) 05/03/22 09:53 Blood Urea Nitrogen 30 mg/dL (7-18) H 05/03/22 09:53 Creatinine 1.0 mg/dL (0.55-1.02) 05/03/22 09:53 Estimated GFR/1.73 m2 54.05 (mL/min/1.73m2) 05/03/22 09:53 Calcium Level 8.4 mg/dL (8.5-10.1) L 05/03/22 09:53 Albumin 2.9 g/dL (3.4-5.0) L 05/03/22 09:53 Glucose Level 133 mg/dL (74-106) H 05/03/22 09:53 Liver Function Panel: Alanine Aminotransferase (ALT/SGPT) 14 U/L (14-59) 05/03/22 09: 53 Aspartate Amino Transf (AST/SGOT) 11 U/L (15-37) L 05/03/22 09: 53 Coagulation Panel: INR International Normalized Ratio 1.0 (0.9-1.1) 05/03/22 09:5 3 Prothrombin Time 9.9 sec (9.3-11.0) 05/03/22 09:53 Cardiac Panel: No Data to Display Arterial Blood Gas: No Data to Display Venous Blood Gas: No Data to Display Pancreas Panel: No Data to Display Thyroid Panel: Thyroid Stimulating Hormone (TSH) 0.31 uIU/mL (0.36-3.74) L 05/03/22 09 :58 Infectious Disease: Coronavirus (COVID-19)(PCR) Negative (Negative) 05/03/22 11:32 Coronavirus 2019 Source Nasal/Nares 05/03/22 11:32 Blood Cultures: No Data to Display Toxicology Panel: No Data to Display Anesthesia Assessment and Plan Anesthesia History Personal History: No History of Anesthesia Complications and PONV Family History: No Family History of Anesthesia Complications Exercise Tolerance Exercise Tolerance: Metabolic Equivalents>4 Cardiac & Pulmonary Exam Cardiac Exam: Normal S1/S2 Heart Sounds Pulmonary Exam: Clear Bilateral Breath Sounds Implantable Cardiac Device Does patient have a Pacemaker or an ICD?: No Airway Exam Known Difficult Airway: No Mallampati Class: 2 Mouth Opening: Normal (> 3cm) Thyromental Distance: Greater than 3 cm Neck Range of Motion: Limited ROM Neck Circumference: Normal Teeth Condition: Generalized Poor Dentition ASA Classification ASA Score: ASA 3 Emergency Case?: No NPO Status NPO Status: NPO Clears >2 hours, Solids >8 hours Anesthesia Plan Resuscitation Status: Full Code Anesthesia Technique: General Anesthesia Airway Planned: Natural Airway Monitors Used: Standard Monitors Preoperative Comments:: 76 yo female for ?EGD/colo for blood in stool. She presented to the ED with rectal bleeding. In the ED she received IVF/PRBC and TX A. Sig PMHx: HTN, hypothyroid (s/p thyroidectomy, on replacement), hodgkins lymphoma (states that at 16 yo she had neck radiation r/t this which has left her with difficulty swallowing/phangyeal dysfunction, scarring, and voice changes). Previous Anes: 2015 [facility] easy mask, cmac 2016 [facility] easy mask, mac 3 grade 1.
[2022-05-03] MEDS: Polyethylene Glycol 3350 238 GM BTL PO (17:16)
[2022-05-04] VITALS (91 sets, daily range): BP systolic 98–120; BP diastolic 55–70; PULSE 58–98; RESP 12–28; TEMP 36.7–36.8; TEMPC 36.5; O2SAT 95–98; BMI 26.9
[2022-05-04 06:09] LABS: HCT 28.5 % (36.0-46.0); HGB 9.3 g/dL (11.2-15.7)
--- NOTE | 2022-05-04 08:12 | INITIAL_ITS ---
- If Service Date Differs Date of service: 05/04/22 Time of Service: 08:12 Care Management Initial Assess REASON FOR HOSPITALIZATION:: Acute lower GI bleeding, Acute Anemia PAST MEDICAL HISTORY/PAST SURGICAL HISTORY:: All Active Problems (Updated 05/03/22 @ 17:24 by Mabel Manzano DO). 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 Pharyngoesophageal dysphagia (Acute). Hypotension due to blood loss (Acute). Anemia due to blood loss, acute (Acute). Acute lower GI bleeding (Acute). Diverticula of colon (Acute). Hypertension (Chronic). Hypothyroidism (Chronic). H/O Hodgkin's lymphoma (Chronic). Medical History . History of Hodgkin's disease. Hypertension. Hypothyroidism. Surgical History . Cholecystectomy. H/O surgical procedure (10/24/14). a. cholecystectomy 10/25/14. S/P hernia repair. Status post laparoscopic repair of epigastric port hernia w/ mesh. following cholecystectomy in 2014. thyroidectomy PREVIOUS FUNCTIONAL STATUS/SOCIAL/FAMILY SUPPORTS:: Payton lives alone in [place] with her pets. Her brother and sister in-law live down the street from her and are supportive. Payton does not have children. She is independent at baseline and drives. Payton uses 2 walking sticks PRN when she leaves the house. CURRENT FUNCTIONAL STATUS:: Payton was lying in bed when CM met with her. She is alert, oriented and easily engages in conversation. Payton has no concerns at this time. She is planning on having a Colonoscopy and a EGD later today. ADVANCE DIRECTIVES:: Per pt: She has Adv. Directives. Not on file at [facility] or AD Registry. Has patient been provided with info about the portal/API?: Yes Did the patient sign up for the portal?: Yes (Prior to admission) CODE STATUS:: Full Code INSURANCE COVERAGE / FINANCIAL ISSUES:: [place]. Medicare CURRENT HOME/COMMUNITY SERVICES/EQUIPMENT:: Has (2) walking sticks, that she uses PRN PRIMARY CARE PHYSICIAN:: Gloria Fischer POTENTIAL DISCHARGE NEEDS:: Follow up appointments PATIENT/FAMILY EDUCATION NEEDS:: Review discharge instructions, limitations, medications and plan to follow up with community providers. ask me three. TRANSPORTATION:: Via private vehicle with family. PLAN:: Anticipate, Payton will discharge home via private vehicle with family when medically ready. Payton will follow up with community providers and discharge plan of care as prescribed. CM will continue to assess discharge planning needs.
[2022-05-04] MEDS: Normal Saline Flush 10 ML SYR IVP ×2 (08:38→19:33)
[2022-05-04] MEDS: Lactated Ringers 1,000 ML 100 ML IV (09:08)
--- NOTE | 2022-05-04 13:06 | PHA.REVIEW ---
Pharmacy Admission Review - Admission Clinical Review (Last Reviewed 05/03/22 @ 17:16 by Mabel Manzano DO) Postcholecystectomy diarrhea (Acute) Disorder of palatine bone (Acute) Pharyngoesophageal dysphagia (Acute) Hypotension due to blood loss (Acute) Anemia due to blood loss, acute (Acute) Acute lower GI bleeding (Acute) Diverticula of colon (Acute) No Known Allergies Allergy (Unverified 05/03/22 11:26) Resuscitation Status Full Code Height 5 ft 4 in Weight 71.4 kg - Renal Dosing Renal Dosing: BUN 30 mg/dL (7-18) H 05/03/22 09:53 Creatinine 1.0 mg/dL (0.55-1.02) 05/03/22 09:53 Medications needing adjustments: Intervened (Crcl ~42 mL/min current meds okay; famotadine is renally adjusted.) - Anticoagulation Anticoagulation: Hgb 9.3 g/dL (11.2-15.7) L 05/04/22 05:21 Hct 28.5 % (36.0-46.0) L 05/04/22 05:21 Plt Count 156 10^3/uL (130-400) 05/03/22 12:55 INR 1.0 (0.9-1.1) 05/03/22 09:53 Creatinine 1.0 mg/dL (0.55-1.02) 05/03/22 09:53 DVT Prophylaxis: Reviewed (SCDs, no chemical prophylaxis due to GI bleed and anemia) Therapeutic Anticoagulation: N/A - Opiate Usage Evaluate Pain Scale/Pains Meds: N/A - Relevant Labs Sodium 136 mmol/L (136-145) 05/03/22 09:53 Potassium 4.0 mmol/L (3.5-5.1) 05/03/22 09:53 Chloride 102 mmol/L (98-107) 05/03/22 09:53 Electrolytes, C-Reactive P, ESR: Reviewed - DM Control DM Control: Glucose 133 mg/dL (74-106) H 05/03/22 09:53 Insulin Dosing: N/A - Heart Failure/NM EF%, DIAZ's, B-Blockers, Diuretics: N/A - BP Control BP Control: Blood Pressure [Right Arm] 102/62 Blood Pressure 104/55 Blood Pressure 105/55 Blood Pressure 102/62 Blood Pressure 107/59 Blood Pressure 102/60 If elevated: Reviewed (BP has been low to normal so far this admission) - Qtc Review If Elevated: N/A - IV to PO Switch IV Medications: Reviewed - Home Meds Home Med List reviewed: Reviewed Relevent Home Meds Not ordered & why?: acetaminophen (PRN), aspirin, cholecalciferol, ibuprofen (PRN), lisinopril - Current meds Current Medication Order Review: Reviewed - Comments Comments/Follow Ups: Watch BP, SCr, H/H, labs and for med changes (IV to PO, possible renal dose adjustments, some home meds).
--- NOTE | 2022-05-04 14:51 | STREC_ITS ---
Date of service: 05/04/22 Time of Service: 14:51 Speech Therapy Recommendations Report ST Recommendations: Chart reviewed. Unable to see patient for clinical swallow evaluation this date due to NPO status pending colonoscopy. Per chart review, Patient seen for MBSS @ [facility] in 2020; Results indicated: Mild-moderate pharyngoesophageal dysphagia c/b palatopharyngeal incompetence with increased bolus size/rate resulting in nasal regurgitation, as well as ?impaired diffuse motility of laryngeal, pharyngeal, and pharyngo-esophagus resulting in notable difficulty clearing pharyngeal residue but without any kelly aspiration. GI workup was also recommended at that time for suspected esophageal motility component. [employer] at that time also noting consideration for palatal lift prosthesis candidacy to address both speech and swallow function. Therapy:?Per MD, non-urgent consult. If [employer] unable to perform bedside clinical swallow evaluation prior to discharge, recommend hospitalist/surgery place outpatient [employer] referral to complete evaluation and review prior results of MBSS, determine need for repeat study, and develop treatment plan as appropriate. May address the following: trial of digital pressure manipulation techniques and/or compensatory swallowing strategies to address nasal regurgitation, discussion of palatal lift prosthesis and appropriate specialist referral(s); possible rationale for use of amplification device to address intelligibility in social/occupational environments, etc. Diet recommendation:?Regular solid (IDDSI Level 7)/Thin Liquid (IDDSI Level 0) diet. Solid diet modification is per pt?s preference; adjust solid diet at pt?s discretion. Risk management:?Behavioral reflux precautions, including upright position d uring + 90 mins after meals. Follow intake of pill with secondary dry swallow and/or pause+thin liquid wash; may benefit from digital occlusion of nares to reduce nasal regurgitation. Small bites/sips, alternate solid/liquid as able. Control risk factors for aspiration pneumonia via (a) oral hygiene & (b) maintaining physical mobility as tolerated Specialist referrals:?Gastroenterology evaluation for suspected changes in esophageal dysphagia. Outpatient [employer] to address pharyngoesophageal dysphagia management and training as appropriate, further assessment of articulati on/resonance; may consider ENT or Reel Winder consult given previously noted hypernasal and mildly rough/hoarse vocal quality, pending motivational interview with [employer]. Ancillary tests:?Consider Barium Esophagram and/or High Resolution Esophageal Manometry. Please feel free to contact me with any questions/concerns. Mabel Hernandez Speech-Language Pathologist [phone] Coding
--- NOTE | 2022-05-04 15:05 | STOM_PTH ---
PATIENT: Payton Thomas LOC: ICU U#:[id number] AGE/SX: 76/F ROOM: ICU.221 RE05/03/[address]: Mabel Manzano : 1945 BED: A DIS: 05/05/2022 SPEC #: [id number] RECD: 05/04/22 16:56 STATUS: JASON RE #: [id number] KELLY: 05/04/22 15:[address]: Mabel Manzano DEPT: Surgical Specimen RECD BY: Monie Sotelo ENTERED: 05/04/22 17:08 SP TYPE: STOMACH OTHR DR: Gloria Fischer, Melissa Mario Tissues: 1 - BIOPSY BOWEL 2 - BIOPSY BOWEL 3 - STOMACH BIOPSY 4 - STOMACH BIOPSY 5 - ESOPHAGUS BIOPSY 6 - ESOPHAGUS BIOPSY 7 - STOMACH BIOPSY 8 - ESOPHAGUS BIOPSY 9 - BIOPSY BOWEL 10 - BIOPSY BOWEL 11 - BIOPSY BOWEL 12 - BIOPSY BOWEL 13 - BIOPSY BOWEL 14 - BIOPSY BOWEL Procedures: GROSS AND MICRO LEVEL 4 IMMUNOPEROXIDASE STAIN Comments: [id number]
--- NOTE | 2022-05-04 16:04 | W.ANESPOSTOP ---
Postoperative Evaluation Date, Time and Location Date Performed: 05/04/22 Time Performed: 16:02 Patient Location: Intensive Care Unit Vital Signs Most Recent Imported Vital Signs: Most Recent Vital Signs Temp Pulse Resp BP Pulse Ox 36.7 C 58 L 22 104/55 L 95 05/04/22 07:49 05/04/22 10:01 05/04/22 10:01 05/04/22 10:01 05/04/22 07:49 Most Recent Manually Entered Vital Signs: Adult Blood Pressure: 120/59 Heart Rate: 62 Respirations: 12 Oxygen Saturation (%): 98 Temperature (C): 36.5 C Pain Score (0-10 Scale): 0 Pain Score Most Recent Pain Score: Most Recent Pain Score Pain Level 0 05/04/22 07:49 Assessment Mental Status: Awake (Alert & Oriented to Patient Baseline) Airway and Respiratory Function: Patent airway with normal (patient baseline) respiratory exam Cardiovascular Function: Hemodynamically Stable Hydration Status: Adequately Hydrated Nausea & Vomiting: No Nausea or Vomiting Pain: Pt. Denies Any Pain Peripheral Nerve Block: Patient did not receive a nerve block
[2022-05-04] MEDS: FAMOTIDINE 20 MG in Normal Saline 100 ML 400 MG IVPB (16:40)
--- NOTE | 2022-05-04 17:56 | W.COLOREPORT ---
Colonoscopy Report Date of procedure: 05/04/22 Pre-op diagnosis general: Gi bleed Post-op diagnosis procedure note: other (severe pandiverticulosis/poss mild ischemia in right colon /colon polyp) Surgeon: Mabel Manzano Anesthesia Type: General:No Airway Estimated blood loss (mL): 2 Pathology: other Complications: None Disposition: ICU Indications: Massive painless rectal hemorrhage Prep: Miralax/Dulcolax Retraction Time: 11 Procedure Description: After informed consent was obtained the patient was taken to the procedure room and placed in a left decubitous position. Monitors were applied and a time out was done. The patients name, date of , procedure, allergies to medications and metal in their body was reviewed. The patient was then sedated. Once sedated and comfortable a rectal exam was done. External exam was normal. Internal exam revealed a normal sphincter tone and no palpable masses. The scope was then introduced and retrofelexed. No internal hemorrhoids were identified. The scope was then advanced to the cecum w/out difficulty. The TI and appendiceal orifice were identified. The prep was BB PS 1 in all segments for a total of 3. The colon was lavaged with 2 L of saline. The scope was then slowly retracted over 11 minutes back into the rectum. There is some edema and erythema within the right colon. There may be a slight ischemic process in the right colon.. Biopsies were taken at 80 cm 20 cm 60 cm in the rectum. There are 2 small polyps at 90 cm these are removed with cold biting forcep. All specimen is retrieved and no bleeding is noted. She has severe johnson- diverticuli that extend all the way over to the cecum. There is no signs of active bleeding or hemorrhage at this time. The scope was removed and the patient was woken up and taken back to Same day surgery in stable condition. The patient tolerated the procedure well and there were no immediate complications. Follow up: The patient not require any further screening colonoscopies, unless they develop changes in bowel habits or other new gastrointestinal complaints.
--- NOTE | 2022-05-04 17:57 | W.PM.ENDDOP ---
Date of service: 05/04/22 Time of Service: 17:58 Endoscopy Report DATE OF PROCEDURE: 05/04/22 PRE-OP DIAGNOSIS: GI bleed/pharyngeal dysfunction POST-OP DIAGNOSIS: other (midl gastritis/hiatal hernia) SURGEON: Mabel Manzano ANESTHESIA TYPE: General:No Airway ESTIMATED BLOOD LOSS: 1 PATHOLOGY: other COMPLICATIONS: None DISPOSITION: ICU PROCEDURE DESCRIPTION: After informed consent was obtained the patient was take to the procedure room and placed in a supine position. Monitors were applied and a time out was done. The patients name, date of , procedure type, allergies to medications and metal in their body was reviewed. A bite block was placed and the patient was sedated. Once sedated and comfortable the gastroscope was advanced through the oropharynx which was grossly normal into the esophagus. The proximal and mid-esophagus show some erythema and some irregularity of the mucosa of an undetermined significance. Biopsy is taken. 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 This just may be from chronic lack of lubrication. In the distal esophagus there was no: erosions/ varices /diverticula/stricture present. She does have a 2 cm sliding hiatal hernia and a patulous hiatus noted. The scope was advanced into the stomach and through the pylorus into the 3rd portion of the duodenum. The duodenum was noted to be normal. Biopsies were done/all specimens are retrieved and no bleeding is noted. The scope was retracted back into the stomach and biopsies were done to rule out H. pylori. There were no ulcers. There is mild gastritis radiating out from the antrum in a striped fashion, biopsies are taken the scope was retroflexed. The cardia and fundus were noted to be normal. There is a 2 cm sliding hiatal hernia noted. There are no signs of active or old hemorrhage. The scope was retracted back into the esophagus and biopsies were done of the GE junction to rule out Bland's. The Z line was mildly irregular/and may be a slight amount of erythema and edema. The GE junction was at 42cm. And the distal esophagus at 40. The scope was removed and the patient was woken up and taken back to [facility] in stable condition.
[2022-05-04] MEDS: Levothyroxine 150 MCG TAB PO (19:32)
[2022-05-04] MEDS: Biotene Mouthwash 237 ML BTL 15 ML MM (19:33)
[2022-05-05] VITALS (23 sets, daily range): BP systolic 100–120; BP diastolic 62–85; PULSE 62–106; RESP 12–27; TEMP 36.3–37.3; O2SAT 95
[2022-05-05] MEDS: IRON SUCROSE COMPLEX 200 MG in Normal Saline 100 ML 400 MG IVPB (00:42)
[2022-05-05 06:19] LABS: HGB 10.2 g/dL (11.2-15.7)
--- NOTE | 2022-05-05 08:14 | PDOC.CMPRO ---
- If Service Date Differs Date of service: 05/05/22 Time of Service: 08:14 Care Management Progress Note S/O: Payton requires close monitoring in the ICU for acute blood loss d/t GI bleed. Payton was sitting up in her chair reading a book when CM met with her. She is alert, oriented and easily engages in conversation. She has a question about her IV medication. CM notified primary RN, and meds were reviewed with pt. Surgery has been consulted and Payton went to the OR yesterday for an EGD and colonoscopy. Results are pending. Payton also had a speech consult yesterday. She has a hx of dysphagia and Hodgkin's lymphoma. A:76 year old female admitted to [facility] on 05/03/22 for Acute lower GI bleeding, Acute Anemia P: Anticipate, Payton will discharge home via private vehicle with family when medically ready. Payton will follow up with community providers and discharge plan of care as prescribed. CM will continue to assess discharge planning needs.
[2022-05-05] MEDS: Levothyroxine 150 MCG TAB PO (08:16)
[2022-05-05] MEDS: Pantoprazole 40 MG TABCR PO (08:17)
--- NOTE | 2022-05-05 12:07 | PGE_ITS ---
Date of Service Date of service: 05/05/22 Time of Service: 12:07 Assessment and Plan Assessment and plan (1) S/P hernia repair: (2) Hypertension: Status: Chronic (3) Hypothyroidism: Status: Chronic (4) H/O Hodgkin's lymphoma: Status: Chronic Assessment and plan: Radiation at age 16 Last mammogram was 2020 and was normal (5) Diverticula of colon: Status: Acute (6) Acute lower GI bleeding: Status: Acute Assessment and plan: Patient is feeling well, H/H now 10.2/30.0 EGD nor colonoscopy showed any kelly bleeding. Patient is hemodynamically stable and tolerating a regular diet. No abdominal pain, nausea or vomiting. Patient should follow-up with speech therapy and her primary care. As above. Patient seen and examined by Dr. Spears at 15:43 She has no dysuria but her UA showed Leukocyte esterases and so I will treat her with Macrobid 100 mg BID for 5 days. Follow up next week with Dr. Manzano (7) Anemia due to blood loss, acute: Status: Acute (8) Hypotension due to blood loss: Status: Acute (9) Pharyngoesophageal dysphagia: Status: Acute Assessment and plan: - See speech recommendation from 09/02. Pt was suppose to f/u w/ speech randall Patterson. It does not appear that she did this. 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 Assessment and plan: See above Speech rec: Consider following strategies for improving efficiency of swallow: plug nose when attempting larger volumes and/or drinking more quickly (ie successive drinks, or through a straw) to address the pressure imbalance you are experiencing from your soft palate weakness; consider 2-3 additional swallows after each bite or at least after taking pills if only able to take with thin liquids - follow with conscious hard and fast swallow (11) Postcholecystectomy diarrhea: Status: Acute Subjective Subjective Interval history since last seen: Patient reports he is feeling well this morning. She denies any abdominal pain, dizziness, fatigue, nausea or vomiting. She states that she is eager to return home. She denies any fevers, chills or. Exam Const General: cooperative, healthy appearing and comfortable Orientation: alert and oriented x3 Resp Effort & Inspection: normal respiratory effort, no audible wheezes and no cough GI Inspection: normal to inspection Objective Last Vital Signs Temp 37.3 C 05/05/22 08:00 Pulse 87 05/05/22 10:01 Resp 24 05/05/22 10:01 BP 100/85 05/05/22 10:01 Pulse Ox 95 05/05/22 08:00 Laboratory Results - last 24 hr 05/05/22 05:35 Hgb 10.2 L Hct 30.0 L PAWSS Have you Been Recently Intoxicated or Drunk Within the Last 30 days?: No Have you Ever Experienced Previous Episodes of Alcohol Withdrawal?: No Have you ever Experienced Withdrawal Seizures?: No Have you ever Experienced Delirium Tremens(DT)s?: No Have you ever undergone Alcohol Rehabilitation Treatment (i.e, inpt ot outpatient treatment programs)?: No Have you ever Experienced Blackouts?: No Have you ever Combined Alcohol with other Downers within the last 90 days?: No Have you ever Combined Alcohol with any other Substance of Abuse during the last 90 days?: No Result: 0
--- NOTE | 2022-05-05 12:13 | DSE_ITS ---
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 Patient's hemoglobin was 9 3. She was given fluids and a unit of blood and TXA. The following day on 05/04 the patient underwent a EGD and colonoscopy. EGD was remarkable for mild gastritis. Colonoscopy demonstrated possible mild ischemic changes to the right colon and pandiverticulosis. Patient's hemoglobin increased to 10.2. Patient is feeling well with no signs of active bleeding. She is hemodynamically stable and eager to be discharged home. Discharge home. Recommend follow-up with speech therapy and PCP. Home Meds and New Rx's Prescriptions: New nitrofurantoin monohyd/m-cryst [Macrobid] 100 mg capsule 100 mg PO BID Qty: 10 0RF Rx Instructions: must administer with a meal/food Continued lisinopril 10 MG tablet 10 mg PO DAILY levothyroxine 150 MCG tablet 150 mcg PO DAILY acetaminophen 650 mg Tablet 1,300 mg PO BID PRN ibuprofen [IBU-200] 200 mg Tablet 400 mg PO Q4-5H PRN aspirin 81 mg Tablet 81 mg PO DAILY cholecalciferol (vitamin D3) 25 mcg (1,000 unit) tablet 2 tab PO DAILY Label Comments: 2 tablet by mouth once a day Discharge Instructions Instructions: Iron Rich Diet (DC), Anemia (DC) Referrals: Gloria Fischer [Primary Care Provider] - 05/12/22 10:50 am (arrive at 1035 ) Melissa Zhao [SPEECH LANGUAGE PATHOLOGIST] - 05/31/22 10:30 am Activity:: Activity as Tolerated Equipment/Supplies:: No Equipment Needed Diet:: Normal Diet DS: Summary Time Spent with Patient providing and/or coordinating discharge services: Less than 30 minutes Status at Discharge Functional status at discharge: independent ambulation Overall status at discharge: patient is back to baseline Mental Status: mental status grossly normal Speech and Movement: speech and movement normal Mood: congruent mood Affect: normal affect Exam Const General: cooperative, healthy appearing and comfortable Orientation: alert and oriented x3 Resp Effort & Inspection: normal respiratory effort, no audible wheezes and no cough Psych Mental Status: mental status grossly normal Speech and Movement: speech and movement normal Mood: congruent mood Affect: normal affect DS: Data Vitals/I&O Vitals and I&O: Vital Signs Temperature 37.3 C 05/05/22 08:00 Temperature Source Temporal Artery Scan 05/05/22 08:00 Pulse 87 05/05/22 10:01 Pulse 89 05/05/22 10:01 Respiratory Rate 24 05/05/22 10:01 Respiratory Effort Non-Labored 05/05/22 08:00 Respiratory Depth Normal 05/05/22 08:00 Respiratory Pattern Normal 05/05/22 08:00 Blood Pressure 100/85 05/05/22 10:01 Blood Pressure Mean 89 05/05/22 10:01 Blood Pressure Position Supine 05/05/22 08:00 Pulse Oximetry 95 05/05/22 08:00 Oxygen Delivery Method Room Air 05/05/22 08:00 Oxygen Flow Rate 0 05/05/22 08:00 Pain Level 0 05/05/22 08:00 Intake & Output 05/04/22 05/05/22 05/05/22 18:59 06:59 18:59 Intake Total 2105.333 / 2225.333 120 / 2225.333 490 / 490 Output Total 1310 / 2760 1450 / 2760 300 / 300 Balance 795.333 / -534.667 -1330 / -534.667 190 / 190 Weight 61.4 kg Intake: IV 1865.333 / 1865.333 10 / 10 Oral 240 / 360 120 / 360 480 / 480 Output: Urine 910 / 2060 1150 / 2060 300 / 300 Stool 400 / 700 300 / 700 Other: Urine Color Yellow Light Barbara Light Barbara Urine Appearance Cloudy Cloudy Clots Urine Odor Normal Comment more catheter pink tinge to urine from large bloody shred noted in tubing Stool Occult Blood Positive Negative Stool Size Moderate Stool Characteristics Liquid Liquid Black Black Voiding Methods Indwelling Catheter Data Completed and Pending Labs on day of discharge: Labs from last 24 hours 05/05/22 05:35 Hgb 10.2 L Hct 30.0 L PFSH All Active Problems (Updated 05/05/22 @ 14:37 by Evelin Ruiz MD) GI bleed (Chronic) Postcholecystectomy diarrhea (Acute) Disorder of palatine bone (Acute) Pharyngoesophageal dysphagia (Acute) Hypotension due to blood loss (Acute) Anemia due to blood loss, acute (Acute) Acute lower GI bleeding (Acute) Diverticula of colon (Acute) Hypertension (Chronic) Hypothyroidism (Chronic) H/O Hodgkin's lymphoma (Chronic) Medical History History of Hodgkin's disease Hypertension Hypothyroidism Surgical History Cholecystectomy H/O surgical procedure (10/24/14) a. cholecystectomy 10/25/14 S/P hernia repair Status post laparoscopic repair of epigastric port hernia w/ mesh. following cholecystectomy in 2014 thyroidectomy Social History Smoking/Tobacco Use Status: Former Tobacco Use Smoking risk assessment performed?: Yes Alcohol Intake: current Alcohol Intake frequency: holidays/special occasions only Alcohol type: wine Drug use: Never Substance use type: does not use Do you feel safe at home: Yes Do you feel safe in your relationship?: Yes
--- NOTE | 2022-05-05 13:54 | PDOC.CMDIS ---
- If Service Date Differs Date of service: 05/05/22 Time of Service: 13:54 LACE Index Scoring Tool - Questions: Length of Stay (in days): 2 Acuity (Admit via E.D.?): Yes E.D. Visits: 1 - Answers: Total Score: 6 Risk of Readmission: Low Risk Care Management Discharge Reason for Hospitalization: Acute lower GI bleeding, Acute Anemia Discharge Plan: Discharge home via private vehicle with friend. Continue medications as prescribed and activity as tolerated. An diet rich in Iron is recommended. Payton will also follow-up with Speech Therapy 05/31/22 and her PCP 05/12/22 as scheduled. Patient/Family Education Needs: Review discharge instructions, limitations, medications and plan to follow up with community providers. ask me three.
[2022-05-05 14:20] LABS: Bilirubin Negative (Negative); Blood Large (Negative); Clarity Sl Cloudy (Clear); Glucose Negative (Negative); Ketones Negative (Negative); Leukocyte Esterase Small (Negative); Nitrite Positive (Negative); Urobilinogen 0.2 EU/dL (Up TO 0.2)
[2022-05-05 14:39] LABS: Epithelial Cells Negative HPF (Negative)
[2022-05-05 14:40] LABS: Bacteria Many HPF (Negative); C & S Indicated? Yes; Casts Negative LPF (Negative); Crystals Negative HPF (Negative); Mucus Negative (Negative); Other Cells Few Transitional (Negative)
== END 2022-05-05 17:20 | disposition home or self-care (01) | DRG 378 ==
LOC: ER 12:00 → ICU 12:12
PROVIDERS: Surgery; Admitting Provider Surgery; Emergency Provider Student in an Organized Health Care Education/Training Program; PCP Family Medicine; Visit Provider Surgery
PROC: 0DBE8ZX Excision of Large Intestine, Via Natural or Artificial Opening Endoscopic, Diagnostic (ICD-10-PCS; CPT 45380; principal; 2022-05-04 14:30)
DX: K57.31 Diverticulosis of large intestine without perforation or abscess with bleeding (principal); D62 Acute posthemorrhagic anemia; K55.8 Other vascular disorders of intestine; I95.89 Other hypotension; K63.5 Polyp of colon; I10 Essential (primary) hypertension; R53.1 Weakness; R29.6 Repeated falls; R13.14 Dysphagia, pharyngoesophageal phase; Z85.71 Personal history of Hodgkin lymphoma; E89.0 Postprocedural hypothyroidism; Z79.82 Long term (current) use of aspirin; K91.5 Postcholecystectomy syndrome; M85.88 Other specified disorders of bone density and structure, other site; Y84.2 Radiological procedure and radiotherapy as the cause of abnormal reaction of the patient, or of later complication, without mention of misadventure at the time of the procedure; Z87.891 Personal history of nicotine dependence; K44.9 Diaphragmatic hernia without obstruction or gangrene; K29.70 Gastritis, unspecified, without bleeding
CPT/HCPCS: 45380; 43239; 36415; 36430; 51702; 80053; 86850; 86900; 86901; 86920; 87077; 87635; 88305; 96361; 96374; 96375; 99223; 99232; 99238; 99291; 81003; 81015; 82728; 83540; 83550; 83605; 84439; 84443; 85014; 85018; 85025; 85610; 87086; 87186; 88361; J1756; J3490; P9016

== ENCOUNTER → 2022-06-03 12:32 | Outpatient (BNVA) | payer MEDICARE, BC, SELFPAY | PROVIDERS: PCP Family Medicine; Referring Provider Family Medicine; Visit Provider Nurse Practitioner Adult Health | DX: I10 Essential (primary) hypertension (principal); R41.3 Other amnesia | CPT/HCPCS: 99204; 99214 ==

== ENCOUNTER 2022-06-08 04:03 | Outpatient (CLI) | payer MEDICARE, BC, SELFPAY ==
[2022-06-08 12:20] LABS: Vitamin B12 373 pg/mL (193-986)
== END 2022-06-08 04:04 | disposition home or self-care (01) ==
LOC: LBO 04:03
PROVIDERS: PCP Family Medicine; Visit Provider Nurse Practitioner Adult Health
DX: R41.3 Other amnesia (principal)
CPT/HCPCS: 36415; 82607

== ENCOUNTER → 2022-06-21 14:46 | Outpatient (BNVA) | payer MEDICARE, BC, SELFPAY | PROVIDERS: PCP Family Medicine; Referring Provider Family Medicine; Visit Provider Surgery | DX: Z98.890 Other specified postprocedural states (principal); K57.30 Diverticulosis of large intestine without perforation or abscess without bleeding | CPT/HCPCS: 99213 ==

== ENCOUNTER 2022-06-25 01:14 | Outpatient (CLI) | payer MEDICARE, BC, SELFPAY ==
[2022-06-25 08:48] LABS: HCT 38.5 % (36.0-46.0); HGB 11.9 g/dL (11.2-15.7); MCHC 30.9 % (32.0-36.0); MCV 94 fL (80-95); Platelet Count 204 10^3/uL (130-400); RBC 4.11 10^6/uL (3.93-5.22); RDW 13.1 % (11.7-14.6); RDW-SD 45.3 fL; WBC 5.55 10^3/uL (4.4-10.8)
[2022-06-25 09:31] LABS: Ferritin 48 ng/mL (8-252)
== END 2022-06-25 01:15 | disposition home or self-care (01) ==
LOC: LBO 01:14
PROVIDERS: PCP Family Medicine; Visit Provider Surgery
DX: K57.30 Diverticulosis of large intestine without perforation or abscess without bleeding (principal)
CPT/HCPCS: 36415; 85027; 82728

== ENCOUNTER 2022-08-31 15:24 | Outpatient (REF) | payer MEDICARE, BC, SELFPAY | END 2022-08-31 15:25 | disposition home or self-care (01) | LOC: NCHCN 15:24 | PROVIDERS: PCP Family Medicine; Visit Provider Family Medicine | DX: N39.0 Urinary tract infection, site not specified (principal) | CPT/HCPCS: 87077; 87086; 87186 ==

== ENCOUNTER 2022-09-28 10:27 | Outpatient (REF) | payer MEDICARE, BC, SELFPAY | END 2022-09-28 10:28 | disposition home or self-care (01) | LOC: NCHCN 10:27 | PROVIDERS: PCP Family Medicine; Visit Provider Family Medicine | DX: N39.0 Urinary tract infection, site not specified (principal) | CPT/HCPCS: 87077; 87086; 87186 ==

== ENCOUNTER 2022-11-19 18:25 | Inpatient (IN) | payer MEDICARE, BC, SELFPAY ==
--- NOTE | 2022-11-19 18:15 | RT.EKG_ITS ---
APPROVED REPORT Exam: Resting ECG Reason for Exam: Weakness Patient Location: E HR:84 bpm ECG Measurements Heart Rate 84 AXIS LA 183 P 16 QRSd 86 QRS -28 QT 355 T 3 QTc 420 Conclusion Sinus rhythm...normal P axis, V-rate 60- 99 Anterior infarct, old...Q >40mS, abnormal ST-T, V2-V5 sinus rhythm, left axis, normal intervals, q aves anterior
[2022-11-19 18:24] VITALS: BP 159/87; PULSE 87; RESP 18; O2SAT 100
--- NOTE | 2022-11-19 18:30 | DI.RAD_ITS ---
Exam(s) XR CHEST 1V IN DI DEPT EXAM: XR CHEST 1V IN DI DEPT CLINICAL HISTORY: ams TECHNIQUE: 2D digital imaging was performed. COMPARISON: CR ABD FLAT UPRIGHT PA CHEST from 10/24/2014 FINDINGS: LUNGS: Somewhat linear area increased density in the mid right lung field adjacent to the hilum. Thi s may represent a atelectasis, scarring or pneumonia. No pleural abnormality seen. HEART: Mildly enlarged. AORTA: Extremely tortuous. BONES: Unremarkable for age. Soft tissues: Unremarkable. IMPRESSION: Question of infiltrate versus atelectasis or scarring in the mid right lung field. DATA REPOSITORY: RADIATION DOSE DELIVERED:
--- NOTE | 2022-11-19 18:30 | DI.RAD_ITS ---
Exam(s) XR PELVIS AP EXAM: XR PELVIS AP CLINICAL HISTORY: fall, poor gait. TECHNIQUE: 2D digital imaging was performed. COMPARISON: No exams were available for comparison FINDINGS: BONES: No acute fracture is present. No bony destructive lesion is seen. The sacrum is obscured by overlying bowel gas and stool. JOINTS: No dislocation present. No significant hip joint space narrowing is present. The SI joints sh ow mild degenerative changes inferiorly There are severe degenerative changes in the lower lumbar spine causing scoliosis. The aorta is heav an calcified but normal in diameter where visualized. SOFT TISSUE: Normal. IMPRESSION: No acute abnormality. Degenerative changes. DATA REPOSITORY: RADIATION DOSE DELIVERED:
--- NOTE | 2022-11-19 18:31 | DI.CT_ITS ---
Exam(s) CT HEAD WO EXAM: CT HEAD WO CLINICAL HISTORY: fall, ams. TECHNIQUE: Imaging Protocol: Axial computed tomography images with coronal and sagittal reformatted images were created and reviewed COMPARISON: No exams were available for comparison FINDINGS: Exam is limited by motion artifact projection particularly on the inferior images. Ventricles and Extra axial spaces: Normal in size and morphology for the patient's age. Hemorrhage: None. Cerebral parenchyma: White matter changes small vessel disease. Midline shift: None. Brainstem/Cerebellum: Normal. Calvarium: Normal. Visualized Paranasal sinuses/Mastoids: Clear. Soft Tissues: Unremarkable. Vascular: Dolichoectasia of the basilar artery IMPRESSION: No acute intracranial process. RADIATION DOSE DELIVERED: 674.36mGy.cm Total DLP DATA REPOSITORY: All CT scans at this facility are submitted to the National Radiology Data Registry (NRDR) Dose Index Registry (DIR) with the [employer] (A[employer]). RADIATION OPTIMIZATION: All CT scans at this facility use at least one of these dose optimization te chniques: automated exposure control; mA and/or kV adjustment per patient size (includes targeted exa ms where dose is matched to clinical indication); or iterative reconstruction.
--- NOTE | 2022-11-19 18:33 | W.ED.GENAD ---
Discharge Plan Disposition Patient Disposition: Admit to [facility] Condition: Stable Discharge Details Chief Complaint: GenMedical Clinical Impression: COVID, Delirium, Lung consolidation Primary Care Provider: Gloria Fischer ED Provider: Jarred Singh Home Meds and New Rx's Prescriptions: No Action lisinopril 10 MG tablet 10 mg PO DAILY levothyroxine 150 MCG tablet 150 mcg PO DAILY acetaminophen 650 mg Tablet 1,300 mg PO BID PRN ibuprofen [IBU-200] 200 mg Tablet 400 mg PO Q4-5H PRN cholecalciferol (vitamin D3) 25 mcg (1,000 unit) tablet 2 tab PO DAILY Label Comments: 2 tablet by mouth once a day Medical Decision Making 77-year-old female no past medical history brought in by EMS as her roommates noted that she was less ambulatory and behaving out of the ordinary today had a fall yesterday unknown details, patient unable to provide further details, patient speaking quietly slightly mumbling appears slightly confused otherwise alert interactive following commands maintaining airway moving all extremities with full strength no cranial nerve deficits, no midline spinal discomfort step-off or deformity, moving all extremities, appears disheveled and slightly dry with dry oral mucosa and poor skin turgor. Consider electrolyte normality versus dehydration was also consider intracranial injury from recent fall versus less likely pelvic fracture or hip fracture must also consider infectious process toxicologic process endocrinologic process. Will obtain screening labs imaging fluids close reassessment after labs and imaging disposition pending results 20: 58 spoke with patient's family, patient lives independently however given current mental status likely component of delirium in the setting of COVID with dehydration and lack of assistance would be an unsafe discharge home at this time will admit for hydration antibiotics will start remdesivir and dexamethasone given COVID and intermittent desaturation. Consider possible need for home health aide coordination. HPI General Date/Time Provider Initiated Documentation: 11/19/22 18:30. HPI Narrative: 77-year-old female unknown past medical history brought in by EMS for evaluation of change in behavior over the last day in the setting of recent fall her roommates noted that she is less ambulatory and less erratic today, history physical greatly limited by patient participation; patient unable to provide details of recent fall. Blood sugar normal in the field per EMS. IV access obtained in route. Patient currently resting comfortably does not have any current complaints Related Data Home Medications Medication Instructions Recorded Confirmed levothyroxine 150 mcg tablet 150 mcg PO DAILY 10/06/14 08/10/22 lisinopril 10 mg tablet 10 mg PO DAILY 08/19/14 06/23/22 acetaminophen 650 mg tablet 1,300 mg PO BID PRN 05/03/22 06/23/22 cholecalciferol (vitamin D3) 25 2 tab PO DAILY 05/03/22 06/23/22 mcg (1,000 unit) tablet ibuprofen 200 mg tablet (IBU-200) 400 mg PO Q4-5H PRN 05/03/22 06/23/22 Allergies Allergy/AdvReac Type Severity Reaction Status Date / Time No Known Allergies Allergy Unverified 11/19/22 18:32 General Stated Complaint: GenMedical DAMON: 3 Review of Systems Narrative: Review of Systems Constitutional: negative Eyes: negative ENT: negative Cardiovascular: negative Respiratory: negative Gastrointestinal: negative : negative Musculoskeletal: Fall Skin: negative Neurologic: Altered mental status Psych: negative PFSH All Active Problems (Updated 11/19/22 @ 21:00 by Jarred Singh MD) COVID (Acute) Delirium (Acute) Lung consolidation (Acute) Colitis (Acute) Memory impairment (Acute) GI bleed (Chronic) Postcholecystectomy diarrhea (Acute) Disorder of palatine bone (Acute) Pharyngoesophageal dysphagia (Acute) Anemia due to blood loss, acute (Acute) Acute lower GI bleeding (Acute) Diverticula of colon (Acute) Hypertension (Chronic) Hypothyroidism (Chronic) H/O Hodgkin's lymphoma (Chronic) Medical History (Updated 11/19/22 @ 21:00 by Jarred Singh MD) Abdominal bloating Abdominal hernia Acute low back pain Dermatitis Dumping syndrome Fatigue Grief reaction History of Hodgkin's disease Hx of radiation therapy Hypertension Hypothyroidism Lingual dysarthria Lower GI bleeding Muscle fasciculation Neck mass Pain of left thumb Sebaceous cyst Seborrheic keratosis Weakness Surgical History (Updated 06/21/22 @ 14:17 by May Paredes RN) Cholecystectomy H/O hernia repair H/O surgical procedure (10/24/14) a. cholecystectomy 10/25/14 H/O total knee replacement History of thyroidectomy Hx of colonoscopy (~05/2022) S/P hernia repair Status post laparoscopic repair of epigastric port hernia w/ mesh. following cholecystectomy in 2014 thyroidectomy Joy teeth removed Family History Brother Heart disease Social History Smoking/Tobacco Use Status: Former Tobacco Use Smoking risk assessment performed?: Yes Alcohol Intake: current Alcohol Intake frequency: holidays/special occasions only Alcohol type: wine Drug use: Never Substance use type: does not use Do you feel safe at home: Yes Do you feel safe in your relationship?: Yes Exam Narrative Exam Narrative: Physical Examination General: alert, awake, cooperative, resting comfortably, no acute distress; appears disheveled, unkempt HEENT: normocephalic, atraumatic; PERRL, EOM intact, conjunctiva normal; no nasal discharge; dry oral mucosa Neck: supple, trachea midline; full ROM Chest: normal to inspection Respiratory: normal respiratory effort, speaking in full sentences, clear to auscultation, no wheezing, rales or rhonchi Cardiac: regular rate, regular rhythm, S1S2 intact, no murmurs rubs or gallops GI: abdomen soft, non-tender, non-distended; no palpable mass or hepatosplenomegaly Back: No midline spinal tenderness step-offs or deformity Skin: no lesions, rashes or trauma appreciated Neuro: Alert, interactive, following commands cranial nerves II through XII intact, 5 and 5 strength upper and lower extremities, patient appears to slouch to the right side is mumbling and quiet Extremities: Moving all extremities no signs of trauma, pelvis stable Course Vital Signs Vital signs: Vital Signs Pulse 87 11/19/22 18:24 Respiratory Rate 18 11/19/22 18:24 Blood Pressure 159/87 H 11/19/22 18:24 Pulse Oximetry 100 11/19/22 18:24 Temperature Source Skin 11/19/22 18:24 Pulse 87 11/19/22 18:24 Respiratory Rate 18 11/19/22 18:24 Blood Pressure 159/87 H 11/19/22 18:24 Blood Pressure Position Supine 11/19/22 18:24 Pulse Oximetry 100 11/19/22 18:24 Oxygen Delivery Method Room Air 11/19/22 18:24 Oxygen Flow Rate 0 11/19/22 18:24
[2022-11-19 18:45] LABS: Abs Immature Grans 0.04 10^3/uL (0.0-0.06); Absolute Basophil Count 0.04 10^3/uL (0.0-0.2); Absolute Lymphocyte Count 0.24 10^3/uL (1.2-3.4); Absolute Monocyte Count 0.55 10^3/uL (0.1-0.8); Absolute Neutrophil Count 8.51 10^3/uL (1.2-6.7); Basophils % 0.4; HCT 41.9 % (36.0-46.0); HGB 13.4 g/dL (11.2-15.7); Immature Grans % 0.4; Lymphocytes % 2.6; MCH 29.3 pg (27.0-33.0); MCV 92 fL (80-95); MPV 9.7 fL (8.0-11.0); Monocytes % 5.9; Neutrophils % 90.7; Platelet Count 163 10^3/uL (130-400); RBC 4.58 10^6/uL (3.93-5.22); RDW 13.6 % (11.7-14.6); RDW-SD 46.6 fL; WBC 9.38 10^3/uL (4.4-10.8)
[2022-11-19] MEDS: Normal Saline 500 ML 1000 ML IV (19:00)
[2022-11-19 19:08] LABS: ALT 14 U/L (14-59); AST 22 U/L (15-37); Albumin 3.9 g/dL (3.4-5.0); Alkaline Phosphatase 63 U/L (46-116); Anion Gap 8.1 mmol/L (3-11); BUN 26 mg/dL (7-18); CO2 27.9 mmol/L (21.0-32.0); CREATININE 0.7 mg/dL (0.55-1.02); Chloride 101 mmol/L (98-107); Estimated GFR 89.58 (mL/min/1.73m2); Glucose 131 mg/dL (74-106); Potassium 3.9 mmol/L (3.5-5.1); Sodium 137 mmol/L (136-145); TSH (W/Ref FT4) 0.19 uIU/mL (0.36-3.74); Total Protein 7.2 g/dL (6.4-8.2); Troponin I < 50 ng/L (<or=60)
[2022-11-19 19:09] LABS: ETHANOL BLOOD < 3.0 mg/dL (<10)
[2022-11-19 19:12] LABS: Bilirubin Negative (Negative); Blood Trace-lysed (Negative); Clarity Clear (Clear); Glucose Negative (Negative); Ketones Trace mg/dL (Negative); Leukocyte Esterase Negative (Negative); Nitrite Negative (Negative); Specific Gravity >= 1.030 (1.005-1.025); Urobilinogen 0.2 EU/dL (Up TO 0.2)
[2022-11-19 19:18] LABS: Acetaminophen < 2 ug/mL (10-30)
[2022-11-19 19:19] LABS: Salicylate < 2.8 mg/dL (<2.8)
[2022-11-19 19:22] LABS: Bacteria Rare HPF (Negative); C & S Indicated? No; Crystals Negative HPF (Negative); Epithelial Cells Few HPF (Negative); Mucus Negative (Negative); WBC 0-2 HPF (0-5)
[2022-11-19 19:23] LABS: *AMPHETAMINES SCREEN URINE Negative (Negative); *BARBITURATES SCREEN URINE Negative (Negative); *BENZODIAZEPINES SCREEN URINE Negative (Negative); Cannabinoids THC Negative (Negative); Cocaine Screen,Urine Negative (Negative); METHADONE URINE SCREEN Negative (Negative); OPIATES URINE SCREEN Negative (Negative); Tricyclic Antidepressants Negative (Negative)
[2022-11-19 19:26] LABS: FREE T4 1.29 ng/dL (0.76-1.46)
[2022-11-19 19:49] LABS: Influenza A PCR Negative (Negative); Influenza B PCR Negative (Negative); RSV PCR Negative (Negative)
[2022-11-19 19:51] VITALS: BP 159/84; PULSE 71; RESP 18; O2SAT 98
[2022-11-19 19:52] LABS: COVID-19 PCR Positive (Negative); Source Nasopharynx
--- NOTE | 2022-11-19 20:22 | DI.VRAD_ITS ---
PROCEDURE INFORMATION: Exam: XR Pelvis Exam date and time: 11/19/2022 7:34 PM Age: 77 years old Clinical indication: Other: Fall, poor gait, confusion TECHNIQUE: Imaging protocol: Radiologic exam of the pelvis. Views: 1 or 2 view. COMPARISON: No relevant prior studies available. FINDINGS: Bones/joints: Degenerative changes In both hips and lumbar spine and sacroiliac joints. There is no evidence of acute fracture.There is no evidence of malalignment or dislocation. Soft tissues: Unremarkable. Vasculature: Tortuous aorta IMPRESSION: There is no evidence of acute fracture.There is no evidence of malalignment or dislocation. Dictated and Authenticated by: Lindsay Flor MD. Ordering:KELVIN Stern MD
--- NOTE | 2022-11-19 20:23 | DI.VRAD_ITS ---
PROCEDURE INFORMATION: Exam: XR Chest Exam date and time: 11/19/2022 7:30 PM Age: 77 years old Clinical indication: Other: AMS TECHNIQUE: Imaging protocol: Radiologic exam of the chest. Views: 1 view. COMPARISON: No relevant prior studies available. FINDINGS: Lungs: Opacity in the right mid lung may represent atelectasis or pneumonia.. Pleural spaces: Unremarkable. No pleural effusion. No pneumothorax. Heart/Mediastinum: Unremarkable. No cardiomegaly. Vasculature: Tortuous aorta Bones/joints: Unremarkable. IMPRESSION: Opacity in the right mid lung may represent atelectasis or pneumonia.. Dictated and Authenticated by: Lindsay Folr MD. Ordering:KELVIN Stern MD
--- NOTE | 2022-11-19 20:26 | DI.VRAD_ITS ---
PROCEDURE INFORMATION: Exam: CT Head Without Contrast Exam date and time: 11/19/2022 7:35 PM Age: 77 years old Clinical indication: Altered mental status/memory loss; Confusion or disorientation TECHNIQUE: Imaging protocol: Computed tomography of the head without contrast. Radiation optimization: All CT scans at this facility use at least one of these dose optimization techniques: automated exposure control; mA and/or kV adjustment per patient size (includes targeted exams where dose is matched to clinical indication); or iterative reconstruction. COMPARISON: US SOFT TISSUE HEAD OR NECK 03/10/2021 1:34 PM FINDINGS: Brain: No acute intracranial hemorrhage.. There is moderate diffuse heterogeneity of the white matter attenuation, consistent with chronic white matter ischemic changes. Moderate cerebral atrophy Cerebral ventricles: No ventriculomegaly. Paranasal sinuses: Visualized sinuses are unremarkable. No fluid levels. Mastoid air cells: Visualized mastoid air cells are well aerated. Bones/joints: Unremarkable. No acute fracture. Soft tissues: Unremarkable. Other findings: Motion artifact degrades images IMPRESSION: No acute intracranial hemorrhage.. Dictated and Authenticated by: Lindsay Flor MD. Ordering:KELVIN Stern MD
[2022-11-19 20:27] VITALS: BP 138/77; PULSE 67; RESP 18; O2SAT 98
[2022-11-19] MEDS: cefTRIAXone 1,000 MG in Normal Saline 50 ML 100 MG IVPB (20:58)
[2022-11-19] MEDS: AZITHROMYCIN 500 MG in Normal Saline 250 ML 250 MG IVPB (20:58)
--- NOTE | 2022-11-19 21:05 | W.PM.HP.N ---
Date of service: 11/19/22 Time of Service: 21:05 Assessment and Plan Assessment and plan (1) Pneumonia due to COVID-19 virus: Start date: 11/19/22 Status: Acute Assessment and plan: This is 77-year-old lady with acute onset of symptoms a couple days prior to admission which probably was acute COVID 19 infection. She does present with a right pneumonia which is being treated with Rocephin and Zithromax but also she is being treated for her acute COVID-19 infection with remdesivir and dexamethasone. She is slightly hypoxic with O2 supplementation as needed. She appears comfortable though fatigued and slow in mentation and movement. She has been falling at home. She has had no injuries from her falls by imaging. Once she is recovering she may need rehabilitation with PT and OT to see her eventually. She is a full code. (2) Delirium: Start date: 11/19/22 Status: Acute Assessment and plan: 2 to 3-day history of decreased mentation and weakness with a fall about 2 days prior to admission. This is associate with her pneumonia and COVID-19 infection. (3) Multiple falls: Start date: 11/20/22 Status: Acute Assessment and plan: Patient has had imaging with no sequela from her recent falls and no focalizing findings on physical exam to suggest further evaluation needed. She will need PT and OT prior to discharge. She may need increased supervision and help at home. (4) Hypertension: Status: Chronic Assessment and plan: Continue modified dose of lisinopril and check for orthostasis with recent falls. (5) Hypothyroidism: Status: Chronic Assessment and plan: Continue supplement and adjust as needed as an outpatient following TSH. History of Present Illness History of Present Illness Chief Complaint: Malaise and falls with hypoxemia Narrative: This is a 77-year-old female patient brought to the ED by EMS with patient's tenants or roommate noting that she was falling and weak with more malaise and slightly more confused. There is a question of chronic cognitive impairment but she does live independently. She was evaluated in the ED for her generalized symptoms and was found to have COVID pneumonia with a right lobar pneumonia by chest x-ray. She had multiple images because of her falls with no evidence of acute fracture or subluxation. The patient seems to minimize her falling and weakness and denies any cough but did have slight dyspnea. She denies any significant fever. She was being admitted for treatment of her pneumonia but also for acute COVID-19 respiratory infection with her weakness. She is in the window of time for receiving remdesivir and dexamethasone with slight hypoxemia requiring O2 supplementation while in the ED. She offers no further history and is a vague historian. Her medical chart was reviewed along with discussion with the ED physician as to presentation and past history. Treatment plan was initiated in the ED. She is a full code. Review of Systems Narrative: 13 point review of systems otherwise unrevealing or stable. 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) Pharyngoesophageal dysphagia (Acute) Anemia due to blood loss, acute (Acute) Acute lower GI bleeding (Acute) Diverticula of colon (Acute) Hypertension (Chronic) Hypothyroidism (Chronic) H/O Hodgkin's lymphoma (Chronic) Medical History Abdominal bloating Abdominal hernia Acute low back pain Dermatitis Dumping syndrome Fatigue Grief reaction History of Hodgkin's disease Hx of radiation therapy Hypertension Hypothyroidism Lingual dysarthria Lower GI bleeding Muscle fasciculation Neck mass Pain of left thumb Sebaceous cyst Seborrheic keratosis Weakness Surgical History Cholecystectomy H/O hernia repair H/O surgical procedure (10/24/14) a. cholecystectomy 10/25/14 H/O total knee replacement History of thyroidectomy Hx of colonoscopy (~05/2022) S/P hernia repair Status post laparoscopic repair of epigastric port hernia w/ mesh. following cholecystectomy in 2014 thyroidectomy [place] teeth removed Family History Brother Heart disease Social History Smoking/Tobacco Use Status: Former Tobacco Use Smoking risk assessment performed?: Yes Alcohol Intake: current Alcohol Intake frequency: holidays/special occasions only Alcohol type: wine Drug use: Never Substance use type: does not use Do you feel safe at home: Yes Do you feel safe in your relationship?: Yes Meds Allergies and Home Medications Allergies Allergy/AdvReac Type Severity Reaction Status Date / Time No Known Allergies Allergy Unverified 11/19/22 18:32 Home Medications Medication Instructions Recorded Confirmed Type levothyroxine 150 mcg tablet 150 mcg PO DAILY 08/19/14 06/23/22 History lisinopril 10 mg tablet 10 mg PO DAILY 08/19/14 06/23/22 History acetaminophen 650 mg tablet 1,300 mg PO BID PRN 05/03/22 06/23/22 History cholecalciferol (vitamin D3) 25 2 tab PO DAILY 05/03/22 06/23/22 History mcg (1,000 unit) tablet ibuprofen 200 mg tablet (IBU-200) 400 mg PO Q4-5H PRN 05/03/22 06/23/22 History Exam Narrative Exam Narrative: General: Patient appears fatigued and has slightly mumbled speech but is able to offer recent history though at times wandering in conversation. She is in no acute distress. She is alert and oriented least to person and place. HEENT: Normocephalic, eyes with pupils equal and react to light symmetrically, extraocular movement tact and sclera anicteric. Oropharynx with dry mucosa. Neck: Supple without JVD. Back: Stooped posture without CVA tenderness. Lungs: Inspiratory coarse crackles with decreased aeration of right hemithorax with fair aeration left hemithorax and no focalizing rales or rhonchi. No expiratory wheeze or increased expiratory phase. No dullness to percussion. Breast: Exam deferred. Heart: Regular rate and rhythm with 3/6 systolic murmur left sternal border. No appreciable murmur gallop or rub. Abdomen: Normal contour, soft and nontender to palpation with no palpable hepatosplenomegaly. Genitalia/rectal: Exam deferred. Extremity: Without clubbing, cyanosis or grossly pitting edema. Peripheral pulses intact with good cap refill. Skin: Normal color, warm and dry. Neuro: Cranial nerves II through XII gross intact, no focalizing motor deficits or tremor. Psych: Normal affect and mood with slow speech and slight mumbling. No abnormal thought processes. Remote memory intact with recent memory less intact. Results Imaging Imaging Studies: Exam: CT Head Without Contrast Exam date and time: 11/19/2022 7:35 PM Age: 77 years old Clinical indication: Altered mental status/memory loss; Confusion or disorientation TECHNIQUE: Imaging protocol: Computed tomography of the head without contrast. Radiation optimization: All CT scans at this facility use at least one of these dose optimization techniques: automated exposure control; mA and/or kV adjustment per patient size (includes targeted exams where dose is matched to clinical indication); or iterative reconstruction. COMPARISON: US SOFT TISSUE HEAD OR NECK 03/10/2021 1:34 PM FINDINGS: Brain: No acute intracranial hemorrhage.. There is moderate diffuse heterogeneity of the white matter attenuation, consistent with chronic white matter ischemic changes. Moderate cerebral atrophy Cerebral ventricles: No ventriculomegaly. Paranasal sinuses: Visualized sinuses are unremarkable. No fluid levels. Mastoid air cells: Visualized mastoid air cells are well aerated. Bones/joints: Unremarkable. No acute fracture. Soft tissues: Unremarkable. Other findings: Motion artifact degrades images IMPRESSION: No acute intracranial hemorrhage. Exam: XR Chest Exam date and time: 11/19/2022 7:30 PM Age: 77 years old Clinical indication: Other: AMS TECHNIQUE: Imaging protocol: Radiologic exam of the chest. Views: 1 view. COMPARISON: No relevant prior studies available. FINDINGS: Lungs: Opacity in the right mid lung may represent atelectasis or pneumonia.. Pleural spaces: Unremarkable. No pleural effusion. No pneumothorax. Heart/Mediastinum: Unremarkable. No cardiomegaly. Vasculature: Tortuous aorta Bones/joints: Unremarkable. IMPRESSION: Opacity in the right mid lung may represent atelectasis or pneumonia. Exam: XR Pelvis Exam date and time: 11/19/2022 7:34 PM Age: 77 years old Clinical indication: Other: Fall, poor gait, confusion TECHNIQUE: Imaging protocol: Radiologic exam of the pelvis. Views: 1 or 2 view. COMPARISON: No relevant prior studies available. FINDINGS: Bones/joints: Degenerative changes In both hips and lumbar spine and sacroiliac joints. There is no evidence of acute fracture.There is no evidence of malalignment or dislocation. Soft tissues: Unremarkable. Vasculature: Tortuous aorta IMPRESSION: There is no evidence of acute fracture.There is no evidence of malalignment or dislocation. Labs Result diagrams: 11/20/22 06:35 11/20/22 06:35 Labs: Laboratory Results - last 24 hr 11/19/22 11/19/22 11/19/22 18:35 18:35 18:35 WBC 9.38 RBC 4.58 Hgb 13.4 Hct 41.9 MCV 92 MCH 29.3 MCHC 32.0 RDW 13.6 Plt Count 163 MPV 9.7 Immature Gran % 0.4 Neutrophils % 90.7 Lymphocytes % 2.6 Monocytes % 5.9 Eosinophils % 0.0 Basophils % 0.4 Nucleated RBC % 0.0 Absolute Neutrophils 8.51 H Absolute Lymphocytes 0.24 L Absolute Monocytes 0.55 Absolute Eosinophils 0.00 Absolute Basophils 0.04 Sodium 137 Potassium 3.9 Chloride 101 Carbon Dioxide 27.9 Anion Gap 8.1 BUN 26 H Creatinine 0.7 Est GFR (CKD-EPI 2020) 89.58 Glucose 131 H Calcium 9.0 Total Bilirubin 1.0 AST 22 ALT 14 Alkaline Phosphatase 63 Troponin I < 50 Total Protein 7.2 Albumin 3.9 TSH 0.19 L Free T4 1.29 Urine Color Urine Clarity Urine pH Ur Specific [place] Urine Protein Urine Ketones Urine Blood Urine Nitrite Urine Bilirubin Urine Urobilinogen Ur Leukocyte Esterase Urine RBC Urine WBC Ur Epithelial Cells Urine Crystals Urine Bacteria Urine Mucus Ur Culture Indicated? Urine Glucose Salicylates < 2.8 Urine Opiates Screen Urine Methadone Screen Acetaminophen < 2 Ur Barbiturates Screen Ur Tricyclics Screen Ur Amphetamines Screen U Benzodiazepines Scrn Urine Cocaine Screen Ur THC Screen Ethyl Alcohol < 3.0 COVID-19 Source SARS-CoV-2 (PCR) Influenza Type A (PCR) Influenza Type B (PCR) RSV (PCR) 11/19/22 11/19/22 11/19/22 18:56 19:04 19:04 WBC RBC Hgb Hct MCV MCH MCHC RDW Plt Count MPV Immature Gran % Neutrophils % Lymphocytes % Monocytes % Eosinophils % Basophils % Nucleated RBC % Absolute Neutrophils Absolute Lymphocytes Absolute Monocytes Absolute Eosinophils Absolute Basophils Sodium Potassium Chloride Carbon Dioxide Anion Gap BUN Creatinine Est GFR (CKD-EPI 2020) Glucose Calcium Total Bilirubin AST ALT Alkaline Phosphatase Troponin I Total Protein Albumin TSH Free T4 Urine Color Yellow Urine Clarity Clear Urine pH 6.0 Ur Specific [place] >= 1.030 H Urine Protein 30 H Urine Ketones Trace H Urine Blood Trace-lysed H Urine Nitrite Negative Urine Bilirubin Negative Urine Urobilinogen 0.2 Ur Leukocyte Esterase Negative Urine RBC 3-5 H Urine WBC 0-2 Ur Epithelial Cells Few Urine Crystals Negative Urine Bacteria Rare Urine Mucus Negative Ur Culture Indicated? No Urine Glucose Negative Salicylates Urine Opiates Screen Negative Urine Methadone Screen Negative Acetaminophen Ur Barbiturates Screen Negative Ur Tricyclics Screen Negative Ur Amphetamines Screen Negative U Benzodiazepines Scrn Negative Urine Cocaine Screen Negative Ur THC Screen Negative Ethyl Alcohol COVID-19 Source Nasopharynx SARS-CoV-2 (PCR) Positive A Influenza Type A (PCR) Negative Influenza Type B (PCR) Negative RSV (PCR) Negative Last Vital Signs Pulse 67 11/19/22 20:27 Resp 18 11/19/22 20:27 BP 138/77 11/19/22 20:27 Pulse Ox 98 11/19/22 20:27 Time Spent Time spent with Patient: >75 minutes Time was spent: preparing to see the patient(eg.review tests), obtaining and/or reviewing separately otained hiistory, ordering medications,tests, procedures, referring, communicating with other health memory care program director, indepentently interpreting results and care coordination
[2022-11-19 21:25] VITALS: BP 147/81; PULSE 69; TEMP 37; O2SAT 98
[2022-11-19 21:28] LABS: Prothrombin Time 9.8 sec (9.3-11.0)
--- NOTE | 2022-11-19 22:08 | NUR.NOTE ---
Pt transported to 215 via stretcher and accepted by Leann DEVRIES. Nursing Note:
[2022-11-19 22:26] VITALS: BP 141/85; PULSE 64; TEMP 37.5; O2SAT 98
[2022-11-19 22:29] VITALS: PULSE 71
[2022-11-19] MEDS: Enoxaparin 40 MG/0.4 ML SYR SC (22:58)
[2022-11-19] MEDS: Normal Saline 500 ML 30 ML IV (23:39)
[2022-11-19] MEDS: REMDESIVIR 200 MG in Normal Saline 250 ML 250 MG IVPB (23:40)
[2022-11-19] MEDS: Dexamethasone 10 MG/ML VIAL IVP (23:40)
[2022-11-20 02:52] VITALS: BP 145/79; PULSE 58; RESP 23; TEMP 36.6; O2SAT 96
[2022-11-20 06:53] LABS: HCT 38.4 % (36.0-46.0); HGB 12.2 g/dL (11.2-15.7); MCH 29.3 pg (27.0-33.0); MCHC 31.8 % (32.0-36.0); MCV 92 fL (80-95); MPV 10.1 fL (8.0-11.0); Platelet Count 160 10^3/uL (130-400); RBC 4.17 10^6/uL (3.93-5.22); RDW 13.7 % (11.7-14.6); RDW-SD 46.8 fL; WBC 7.06 10^3/uL (4.4-10.8)
[2022-11-20 07:11] VITALS: PULSE 64
[2022-11-20 07:21] LABS: C-Reactive Protein 2.55 mg/dL (0.0-0.3)
[2022-11-20 07:22] LABS: ALT 16 U/L (14-59); AST 15 U/L (15-37); Albumin 3.3 g/dL (3.4-5.0); Alkaline Phosphatase 53 U/L (46-116); Anion Gap 5.5 mmol/L (3-11); BUN 22 mg/dL (7-18); Bilirubin, Total 0.6 mg/dL (0.2-1.0); CO2 27.5 mmol/L (21.0-32.0); CREATININE 0.6 mg/dL (0.55-1.02); Calcium 8.5 mg/dL (8.5-10.1); Chloride 107 mmol/L (98-107); Estimated GFR 92.97 (mL/min/1.73m2); Glucose 114 mg/dL (74-106); Potassium 3.8 mmol/L (3.5-5.1); Sodium 140 mmol/L (136-145); Total Protein 6.4 g/dL (6.4-8.2)
[2022-11-20 07:42] LABS: D-Dimer 701 ng/mlFEU (<500)
[2022-11-20 07:44] LABS: Procalcitonin 0.1 ng/mL
[2022-11-20 08:00] VITALS: BP 132/83; PULSE 80; RESP 18; TEMP 36.9; O2SAT 96
--- NOTE | 2022-11-20 08:30 | PDOC.CMIN ---
- If Service Date Differs Date of service: 11/20/22 Time of Service: 08:30 Care Management Initial Assess REASON FOR HOSPITALIZATION:: Pneumonia due to Covid -19 PAST MEDICAL HISTORY/PAST SURGICAL HISTORY:: All Active Problems (Updated 11/19/22 @ 21:11 by Manny Novoa). Multiple falls (Acute). Pneumonia due to COVID-19 virus (Acute). COVID (Acute). Delirium (Acute). Lung consolidation (Acute). Colitis (Acute). Memory impairment (Acute). GI bleed (Chronic). 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 Pharyngoesophageal dysphagia (Acute). Anemia due to blood loss, acute (Acute). Acute lower GI bleeding (Acute). Diverticula of colon (Acute). Hypertension (Chronic). Hypothyroidism (Chronic). H/O Hodgkin's lymphoma (Chronic). Medical History . Abdominal bloating. Abdominal hernia. Acute low back pain. Dermatitis. Dumping syndrome. Fatigue. Grief reaction. History of Hodgkin's disease. Hx of radiation therapy. Hypertension. Hypothyroidism. Lingual dysarthria. Lower GI bleeding. Muscle fasciculation. Neck mass. Pain of left thumb. Sebaceous cyst. Seborrheic keratosis. Weakness. Surgical History . Cholecystectomy. H/O hernia repair. H/O surgical procedure (10/24/14). a. cholecystectomy 10/25/14. H/O total knee replacement. History of thyroidectomy. Hx of colonoscopy (~05/2022). S/P hernia repair. Status post laparoscopic repair of epigastric port hernia w/ mesh. following cholecystectomy in 2014. thyroidectomy. [place] teeth removed PREVIOUS FUNCTIONAL STATUS/SOCIAL/FAMILY SUPPORTS:: Payton lives in her own home in [place] with her pets. She has a tenant who lives in an apartment upstairs but who shares mesls with her downstairs.Her brother and sister in-law live down the street from her and are supportive. Payton does not have children. She is independent at baseline and drives. Payton uses 2 walking sticks PRN when she leaves the house. CURRENT FUNCTIONAL STATUS:: Payton is on Covid isolation so CM was unable to meet with her in person, however did speak to her on the phone. Payton stated that she is feeling better - as good as she did last week. She did state that she has problems with balance and uses a waslking stick when she walks her dog. She generally walks him for a mile a day except in inclement weather. ADVANCE DIRECTIVES:: none on file but states she has ADs Has patient been provided with info about the portal/API?: Yes Did the patient sign up for the portal?: Yes (previously) CODE STATUS:: Full Code INSURANCE COVERAGE / FINANCIAL ISSUES:: Medicare. [facility] CURRENT HOME/COMMUNITY SERVICES/EQUIPMENT:: uses walking stick(s) for ambulation outside PRIMARY CARE PHYSICIAN:: Gloria Fischer POTENTIAL DISCHARGE NEEDS:: Follow up with PCP and plan of care. May need short term rehab for strengthening and balance prior to returning home. PATIENT/FAMILY EDUCATION NEEDS:: Review of discharge instructions, safety and fall precautions, activity, limitations, follow up plan, discuss Ask Me Three TRANSPORTATION:: to be determined by disposition PLAN:: Payton will trice be discharged home later today with no new services. She will follow up with her PCP and plan of care and transport with her tenant.She denied the need for any additional services.
--- NOTE | 2022-11-20 08:49 | TELEP.MEDR_ITS ---
Date of service: 11/20/22 Time of Service: 08:49 Telepharmacy Home Med Rec Allergies Allergies: No Known Allergies Allergy (Unverified 11/19/22 18:32) Additional Notes Additional Notes: * Evening pharmacist attempted to start med rec on 11/19/22, but was informed by ED staff that the request for med rec was cancelled. Recommended Changes Attestation: The home medication list is now updated to the best of my knowledge and is ready to be reconciled by the provider. Please contact the TelePharmacy Medication Reconciliation Pharmacist at for any questions.
[2022-11-20] MEDS: Lisinopril 10 MG TAB 5 MG PO (08:52)
[2022-11-20] MEDS: Dexamethasone 10 MG/ML VIAL IVP (08:52)
[2022-11-20] MEDS: Cholecalciferol (Vitamin D3) 1,000 UNIT TAB 2000 UNITS PO (08:52)
[2022-11-20] MEDS: Normal Saline Flush 10 ML SYR IVP (08:55)
--- NOTE | 2022-11-20 09:35 | PT.INIE ---
PT Notes Visit Reasons: COVID,Pneumonia with Hypoxemia,Delerium,Falls Inpatient Physical Therapy Evaluation Date: [11/20/2022] Referring Doctor: Dr. Jarred Gaytan PT Orders: PT CONSULT: Evaluation and treatment Precautions: COVID, standard Patient Profile/Admitting Diagnosis: []This is 77-year-old lady with acute onset of symptoms a couple days prior to admission which probably was acute COVID 19 infection.? She does present with a right pneumonia which is being treated with Rocephin and Zithromax but also she is being treated for her acute COVID-19 infection with remdesivir and dexamethasone. She has had multiple falls at home without known injury. It was noted by neighbors that her ambulation and alertness was declining. She fell the day before coming to [facility]. 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) Pharyngoesophageal dysphagia (Acute) Anemia due to blood loss, acute (Acute) Acute lower GI bleeding (Acute) Diverticula of colon (Acute) Hypertension (Chronic) Hypothyroidism (Chronic) H/O Hodgkin's lymphoma (Chronic) Medical History?(Updated 11/19/22 @ 21:00 by Jarred Singh MD) Abdominal bloating Abdominal hernia Acute low back pain Dermatitis Dumping syndrome Fatigue Grief reaction History of Hodgkin's disease Hx of radiation therapy Hypertension Hypothyroidism Lingual dysarthria Lower GI bleeding Muscle fasciculation Neck mass Pain of left thumb Sebaceous cyst Seborrheic keratosis Weakness Social History/Home Situation: []Payton lives alone with her pets with relatives nearby and supportive. Current Functional Limitations: []At baseline she ambulates with 2 walking sticks Equipment Owned/DME: [][employer], walking sticks Subjective: []I feel much better today. I am normally a little unsteady I do not feel much different today than I normally do may be a tiny bit. I do walk with a cane but I do not usually need it. Up until 2 days before coming here I was walking with my dog and my walking stick for approximately 1 mile. I do everything around the house and need to go downstairs to load the Pellet stove but if I need help with that I have a tenant that can assist who also has COVID. Objective: [] General Observation: [] Patient on phone having full conversation sitting in chair when I enter the room. Mental Status: [] A&O x3 able to carry on full conversation, appropriately and answering questions. Pain: [] 0/10 other than normal aches and pains ROM: Right Upper Extremity: [] WNL Left Upper Extremity: [] WNL Right Lower Extremity: [] WNL Left Lower Extremity: [] WNL Strength: Right Upper Extremity: [] WFL Left Upper Extremity: [] WFL Right Lower Extremity: [] WFL Left Lower Extremity: []WFL Sensation: [] WNL Bed Mobility/Transfers: [] Sit to stand from chair independent in proper mechanics Gait: [] Ambulating independently around hospital room 4 times with wide base of support and occasional unsteadiness with especially when turning. Patient states the unsteadiness is her baseline. Balance: [] Static Sitting: [] Good Dynamic Sitting: [] Good Static Standing: [] Wide base of support, good Dynamic Standing: [] Unsteady needs to hold on lightly for marching in place. Special Tests: Mobility Limitations Standardized Measure [facility]-P[facility] 6 clicks Basic Mobility Inpatient Short Form: Raw Score: 24 Standardized Score: 61.14 CMS Score: 0 Informed Consent/Education: Patient instructed in purpose of PT consult and plan of care. Assessment: Patient is a 77year old female referred to physical therapy services with the diagnosis of COVID. Patient presents with clinical signs and symptoms consistent with unsteadiness,, as demonstrated by the following impairment level findings: Decreased dynamic balance unable to assess stairs as patient is a COVID-patient but based on strength and use of a rail and a cane to steady herself she should do well with stairs. Patient would do well with use of cane full-time at home, for safety patient should have somebody with her when ambulating in her hospital room however when somebody does go into the room she should take that opportunity to do some walking while hospitalized. Patient is assessed as a [] Low 07138 complexity based on the following: Plan of Care/Treatment Plan:Patient would do well with use of cane full-time at home, for safety patient should have somebody with her when ambulating in her hospital room however when somebody does go into the room she should take that opportunity to do some walking while hospitalized. DISCHARGE RECOMMENDATIONS: Home with no services [] TREATMENT CODE/TIME: 67917, [id number]
--- NOTE | 2022-11-20 11:34 | PDOC.CMDIS ---
- If Service Date Differs Date of service: 11/20/22 Time of Service: 11:34 LACE Index Scoring Tool - Questions: Length of Stay (in days): 1 Acuity (Admit via E.D.?): Yes Comorbidities: Any Tumor E.D. Visits: 2 - Answers: Total Score: 8 Risk of Readmission: Low Risk Care Management Discharge Reason for Hospitalization: Pneumonia due to Covid -19 Discharge Plan: Payton carnes be discharged home later today with no new services. She will follow up with her PCP and plan of care and transport with her tenant.She denied the need for any additional services. Patient/Family Education Needs: Review of discharge instructions, safety and fall precautions, activity, limitations, follow up plan, discuss Ask Me Three
[2022-11-20 12:12] VITALS: BP 123/83; PULSE 66; RESP 16; TEMP 36.6; O2SAT 98
--- NOTE | 2022-11-20 12:25 | DSE_ITS ---
Date of service: 11/20/22 Time of Service: 12:26 DS: Diagnosis Discharge Diagnosis (1) Pneumonia due to COVID-19 virus: Status: Acute (2) Delirium: Status: Acute (3) Multiple falls: Status: Acute (4) Hypertension: Status: Chronic (5) Hypothyroidism: Status: Chronic Discharge Plan Disposition Patient Disposition: Home Condition: Good Discharge Details Reason For Visit: COVID,Pneumonia with Hypoxemia,Delerium,Falls Admit Date/Time: 11/19/22 21:12 Admit Provider: Manny Novoa Attending Provider: Manny Novoa Primary Care Provider: Gloria Fischer [facility] Course Hospital Course: his is a 77-year-old female patient brought to the ED by EMS with patient's tenants or roommate noting that she was falling and weak with more malaise and slightly more confused.? There is a question of chronic cognitive impairment but she does live independently.? She was evaluated in the ED for her generalized symptoms and was found to have COVID pneumonia with a right lobar pneumonia vs atelectesis by chest x-ray.?WBC count normal. She was afebrile and not hypotensive. She had multiple images because of her falls with no evidence of acute fracture or subluxation.? The patient seems to minimize her falling and weakness and denies any cough but did have slight dyspnea.? She denies any significant fever.? She was being admitted for treatment of her pneumonia but also for acute COVID-19 respiratory infection with her weakness.? She is in the window of time for receiving remdesivir and dexamethasone with slight hypoxemia requiring O2 supplementation while in the ED.? She offers no further history and is a vague historian.? Her medical chart was reviewed along with discussion with the ED physician as to presentation and past history.? Treatment plan was initiated in the ED.? She is a full code. The following AM she endorsed feeling her normal self. She required no further supplemental O2. She was evaluated by PT and found to have some mild stability issues especially when turning while ambulating. The patient stated that this was normal for her. She will go home on Azithromycin to complete a 5 day course, though no reliable evidence that she has a bacterial pneumonia: No elevated WBC count, fever, cough/sputum, procalcitonin of 0.1. Follow up with PCP in 1-2 weeks. Covid precautions: isolate for another 3 days then wear a mask in public for 5 days after that. Home Meds and New Rx's Prescriptions: New azithromycin 500 mg tablet 500 mg PO DAILY 5 Days Qty: 4 0RF Rx Instructions: First dose on 11/21/21 Continued lisinopril 10 MG tablet 10 mg PO DAILY levothyroxine 150 MCG tablet 150 mcg PO DAILY acetaminophen 650 mg Tablet 1,300 mg PO BID PRN ibuprofen [IBU-200] 200 mg Tablet 400 mg PO Q4-5H PRN cholecalciferol (vitamin D3) 25 mcg (1,000 unit) tablet 2 tab PO DAILY Label Comments: 2 tablet by mouth once a day Discharge Instructions Activity:: Activity as Tolerated Equipment/Supplies:: No Equipment Needed Diet:: Resume usual diet Discharge Orders Discharge Orders: Discharge Order (Routine); Ordered 11/20/22 Ordered By: Jarred Yuen DS: Summary Time Spent with Patient providing and/or coordinating discharge services: Greater than 30 minutes Status at Discharge Functional status at discharge: independent ambulation Overall status at discharge: patient is back to baseline Mental Status: mental status grossly normal Speech and Movement: speech and movement normal Mood: congruent mood Affect: normal affect Exam Narrative Exam Narrative: General: Pt is sitting in chair. Pleasant and conversant. NAD. HEENT: Sclera clear. Lungs: Inspiratory coarse crackles with decreased aeration of right hemithorax with fair aeration left hemithorax and no focalizing rales or rhonchi. No expiratory wheeze or increased expiratory phase. Heart: Regular rate and rhythm with 3/6 systolic murmur Abdomen: Normal contour, soft and nontender to palpation Extremity: Without clubbing, cyanosis or grossly pitting edema. Skin: Normal color, warm and dry. Psych: Normal affect and mood. Psych Mental Status: mental status grossly normal Speech and Movement: speech and movement normal Mood: congruent mood Affect: normal affect DS: Data Vitals/I&O Vitals and I&O: Vital Signs Temperature 36.6 C 11/20/22 12:12 Temperature Source Tympanic 11/20/22 12:12 Pulse 66 11/20/22 12:12 Pulse Rhythm Regular 11/20/22 10:47 Respiratory Rate 16 11/20/22 12:12 Respiratory Effort 11/20/22 10:47 Respiratory Depth Normal 11/20/22 10:47 Respiratory Pattern Normal 11/20/22 10:47 Blood Pressure 123/83 11/20/22 12:12 Blood Pressure Position Supine 11/19/22 18:24 Pulse Oximetry 98 11/20/22 12:12 Oxygen Delivery Method Room Air 11/20/22 12:12 Oxygen Flow Rate 0 11/20/22 12:12 Pain Level 0 11/20/22 02:52 Intake & Output 11/19/22 11/20/22 11/20/22 23:59 11:59 23:59 Intake Total 510 / 510 550 / 550 Balance 510 / 510 550 / 550 Weight 68.946 kg Intake: IV 510 / 510 550 / 550 Other: Voiding Methods Incontinent Data Completed and Pending Labs on day of discharge: Labs from last 24 hours 11/20/22 11/20/22 11/20/22 06:35 06:35 06:35 WBC 7.06 RBC 4.17 Hgb 12.2 Hct 38.4 MCV 92 MCH 29.3 MCHC 31.8 L RDW 13.7 Plt Count 160 MPV 10.1 Immature Gran % Neutrophils % Lymphocytes % Monocytes % Eosinophils % Basophils % Nucleated RBC % Absolute Neutrophils Absolute Lymphocytes Absolute Monocytes Absolute Eosinophils Absolute Basophils PT INR D-Dimer Sodium 140 Potassium 3.8 Chloride 107 Carbon Dioxide 27.5 Anion Gap 5.5 BUN 22 H Creatinine 0.6 Est GFR (CKD-EPI 2020) 92.97 Glucose 114 H Calcium 8.5 Magnesium 2.0 Total Bilirubin 0.6 AST 15 ALT 16 Alkaline Phosphatase 53 Troponin I C-Reactive Protein Total Protein 6.4 Albumin 3.3 L Procalcitonin 0.1 TSH Free T4 Urine Color Urine Clarity Urine pH Ur Specific [place] Urine Protein Urine Ketones Urine Blood Urine Nitrite Urine Bilirubin Urine Urobilinogen Ur Leukocyte Esterase Urine RBC Urine WBC Ur Epithelial Cells Urine Crystals Urine Bacteria Urine Mucus Ur Culture Indicated? Urine Glucose Salicylates Urine Opiates Screen Urine Methadone Screen Acetaminophen Ur Barbiturates Screen Ur Tricyclics Screen Ur Amphetamines Screen U Benzodiazepines Scrn Urine Cocaine Screen Ur THC Screen Ethyl Alcohol COVID-19 Source SARS-CoV-2 (PCR) Influenza Type A (PCR) Influenza Type B (PCR) RSV (PCR) 11/20/22 11/20/22 11/19/22 06:35 06:35 21:16 WBC RBC Hgb Hct MCV MCH MCHC RDW Plt Count MPV Immature Gran % Neutrophils % Lymphocytes % Monocytes % Eosinophils % Basophils % Nucleated RBC % Absolute Neutrophils Absolute Lymphocytes Absolute Monocytes Absolute Eosinophils Absolute Basophils PT 9.8 INR 1.0 D-Dimer 701 H Sodium Potassium Chloride Carbon Dioxide Anion Gap BUN Creatinine Est GFR (CKD-EPI 2020) Glucose Calcium Magnesium Total Bilirubin AST ALT Alkaline Phosphatase Troponin I C-Reactive Protein 2.55 H Total Protein Albumin Procalcitonin TSH Free T4 Urine Color Urine Clarity Urine pH Ur Specific [place] Urine Protein Urine Ketones Urine Blood Urine Nitrite Urine Bilirubin Urine Urobilinogen Ur Leukocyte Esterase Urine RBC Urine WBC Ur Epithelial Cells Urine Crystals Urine Bacteria Urine Mucus Ur Culture Indicated? Urine Glucose Salicylates Urine Opiates Screen Urine Methadone Screen Acetaminophen Ur Barbiturates Screen Ur Tricyclics Screen Ur Amphetamines Screen U Benzodiazepines Scrn Urine Cocaine Screen Ur THC Screen Ethyl Alcohol COVID-19 Source SARS-CoV-2 (PCR) Influenza Type A (PCR) Influenza Type B (PCR) RSV (PCR) 11/19/22 11/19/22 11/19/22 19:04 19:04 18:56 WBC RBC Hgb Hct MCV MCH MCHC RDW Plt Count MPV Immature Gran % Neutrophils % Lymphocytes % Monocytes % Eosinophils % Basophils % Nucleated RBC % Absolute Neutrophils Absolute Lymphocytes Absolute Monocytes Absolute Eosinophils Absolute Basophils PT INR D-Dimer Sodium Potassium Chloride Carbon Dioxide Anion Gap BUN Creatinine Est GFR (CKD-EPI 2020) Glucose Calcium Magnesium Total Bilirubin AST ALT Alkaline Phosphatase Troponin I C-Reactive Protein Total Protein Albumin Procalcitonin TSH Free T4 Urine Color Yellow Urine Clarity Clear Urine pH 6.0 Ur Specific [place] >= 1.030 H Urine Protein 30 H Urine Ketones Trace H Urine Blood Trace-lysed H Urine Nitrite Negative Urine Bilirubin Negative Urine Urobilinogen 0.2 Ur Leukocyte Esterase Negative Urine RBC 3-5 H Urine WBC 0-2 Ur Epithelial Cells Few Urine Crystals Negative Urine Bacteria Rare Urine Mucus Negative Ur Culture Indicated? No Urine Glucose Negative Salicylates Urine Opiates Screen Negative Urine Methadone Screen Negative Acetaminophen Ur Barbiturates Screen Negative Ur Tricyclics Screen Negative Ur Amphetamines Screen Negative U Benzodiazepines Scrn Negative Urine Cocaine Screen Negative Ur THC Screen Negative Ethyl Alcohol COVID-19 Source Nasopharynx SARS-CoV-2 (PCR) Positive A Influenza Type A (PCR) Negative Influenza Type B (PCR) Negative RSV (PCR) Negative 11/19/22 11/19/22 11/19/22 18:35 18:35 18:35 WBC 9.38 RBC 4.58 Hgb 13.4 Hct 41.9 MCV 92 MCH 29.3 MCHC 32.0 RDW 13.6 Plt Count 163 MPV 9.7 Immature Gran % 0.4 Neutrophils % 90.7 Lymphocytes % 2.6 Monocytes % 5.9 Eosinophils % 0.0 Basophils % 0.4 Nucleated RBC % 0.0 Absolute Neutrophils 8.51 H Absolute Lymphocytes 0.24 L Absolute Monocytes 0.55 Absolute Eosinophils 0.00 Absolute Basophils 0.04 PT INR D-Dimer Sodium 137 Potassium 3.9 Chloride 101 Carbon Dioxide 27.9 Anion Gap 8.1 BUN 26 H Creatinine 0.7 Est GFR (CKD-EPI 2020) 89.58 Glucose 131 H Calcium 9.0 Magnesium Total Bilirubin 1.0 AST 22 ALT 14 Alkaline Phosphatase 63 Troponin I < 50 C-Reactive Protein Total Protein 7.2 Albumin 3.9 Procalcitonin TSH 0.19 L Free T4 1.29 Urine Color Urine Clarity Urine pH Ur Specific [place] Urine Protein Urine Ketones Urine Blood Urine Nitrite Urine Bilirubin Urine Urobilinogen Ur Leukocyte Esterase Urine RBC Urine WBC Ur Epithelial Cells Urine Crystals Urine Bacteria Urine Mucus Ur Culture Indicated? Urine Glucose Salicylates < 2.8 Urine Opiates Screen Urine Methadone Screen Acetaminophen < 2 Ur Barbiturates Screen Ur Tricyclics Screen Ur Amphetamines Screen U Benzodiazepines Scrn Urine Cocaine Screen Ur THC Screen Ethyl Alcohol < 3.0 COVID-19 Source SARS-CoV-2 (PCR) Influenza Type A (PCR) Influenza Type B (PCR) RSV (PCR) PFSH All Active Problems Multiple falls (Acute) Pneumonia due to COVID-19 virus (Acute) COVID (Acute) Delirium (Acute) Lung consolidation (Acute) Memory impairment (Acute) Disorder of palatine bone (Acute) Pharyngoesophageal dysphagia (Acute) Anemia due to blood loss, acute (Acute) Diverticula of colon (Acute) Hypertension (Chronic) Hypothyroidism (Chronic) H/O Hodgkin's lymphoma (Chronic) Medical History Abdominal bloating Abdominal hernia Acute low back pain Acute lower GI bleeding Colitis Dermatitis Dumping syndrome Fatigue GI bleed Grief reaction History of Hodgkin's disease Hx of radiation therapy Hypertension Hypothyroidism Lingual dysarthria Lower GI bleeding Muscle fasciculation Neck mass Pain of left thumb Postcholecystectomy diarrhea Sebaceous cyst Seborrheic keratosis Weakness Surgical History Cholecystectomy H/O hernia repair H/O surgical procedure (10/24/14) a. cholecystectomy 10/25/14 H/O total knee replacement History of thyroidectomy Hx of colonoscopy (~05/2022) S/P hernia repair Status post laparoscopic repair of epigastric port hernia w/ mesh. following cholecystectomy in 2014 thyroidectomy [place] teeth removed Family History Brother Heart disease Social History Smoking/Tobacco Use Status: Former Tobacco Use Smoking risk assessment performed?: Yes Alcohol Intake: current Alcohol Intake frequency: holidays/special occasions only Alcohol type: wine Drug use: Never Substance use type: does not use Do you feel safe at home: Yes Do you feel safe in your relationship?: Yes Time Spent with Patient Time Spent with Patient: <45 minutes Time was spent: preparing to see the patient(eg.review tests), ordering medications,tests, procedures, indepentently interpreting results and counseling the patient
== END 2022-11-20 14:29 | disposition home or self-care (01) | DRG 177 ==
LOC: ER 21:20 → MS 21:52
PROVIDERS: Admitting Provider Family Medicine; Emergency Provider Emergency Medicine; PCP Family Medicine; Visit Provider Family Medicine
DX: U07.1 COVID-19 (principal); J12.82 Pneumonia due to coronavirus disease 2019; F05 Delirium due to known physiological condition; R29.6 Repeated falls; I10 Essential (primary) hypertension; R09.02 Hypoxemia; R53.1 Weakness; K57.30 Diverticulosis of large intestine without perforation or abscess without bleeding; E89.0 Postprocedural hypothyroidism; Z87.891 Personal history of nicotine dependence; Z85.71 Personal history of Hodgkin lymphoma
CPT/HCPCS: 36415; 80053; 80307; 84145; 85027; 87637; 93005; 96360; 97110; 97162; 99285; J1650; 70450; 71045; 72170; 80320; 80329; 81003; 81015; 83735; 84439; 84443; 84484; 85025; 85379; 85610; 86140; 93010; 99223; 99239; J0248; J0456; J0696; J1100

== ENCOUNTER 2023-06-17 13:17 | Outpatient (REF) | payer MEDICARE, BC, SELFPAY ==
[2023-06-17 21:32] LABS: MCH 29.4 pg (27.0-33.0); MCHC 31.8 % (32.0-36.0); MCV 92 fL (80-95); MPV 10.7 fL (8.0-11.0); Platelet Count 196 10^3/uL (130-400); RBC 4.77 10^6/uL (3.93-5.22); RDW 14.4 % (11.7-14.6); RDW-SD 49.7 fL; WBC 13.63 10^3/uL (4.4-10.8)
[2023-06-17 22:21] LABS: ALT 16 U/L (14-59); AST 17 U/L (15-37); Albumin 3.9 g/dL (3.4-5.0); Alkaline Phosphatase 58 U/L (46-116); Anion Gap 7.7 mmol/L (3-11); BUN 23 mg/dL (7-18); Bilirubin, Total 3.1 mg/dL (0.2-1.0); CO2 31.3 mmol/L (21.0-32.0); CREATININE 0.8 mg/dL (0.55-1.02); Calcium 9.5 mg/dL (8.5-10.1); Chloride 103 mmol/L (98-107); Estimated GFR 76.31 (mL/min/1.73m2); Glucose 99 mg/dL (74-106); Magnesium 2.1 mg/dL (1.8-2.4); Potassium 3.9 mmol/L (3.5-5.1); Sodium 142 mmol/L (136-145); Total Protein 7.4 g/dL (6.4-8.2)
[2023-06-20 10:22] LABS: Prolactin 6.6 ng/mL (See Note)
== END 2023-06-17 13:18 | disposition home or self-care (01) ==
LOC: NCHCN 13:17
PROVIDERS: PCP Family Medicine; Visit Provider Family Medicine
DX: G45.9 Transient cerebral ischemic attack, unspecified (principal)
CPT/HCPCS: 80053; 85027; 83735; 84146

== ENCOUNTER 2023-10-13 09:40 | Inpatient (IN) | payer MEDICARE, BC, SELFPAY ==
[2023-10-13] VITALS (83 sets, daily range): BP systolic 145–223; BP diastolic 63–96; PULSE 62–82; RESP 15–24; TEMP 36.7–37.3; O2SAT 87–99
--- NOTE | 2023-10-13 09:45 | RT.EKG_ITS ---
APPROVED REPORT Exam: Resting ECG Reason for Exam: altered mental Patient Location: E HR:69 bpm ECG Measurements Heart Rate 69 AXIS VT 205 P -11 QRSd 84 QRS -12 QT 391 T -5 QTc 420 Conclusion Sinus rhythm normal P axis
--- NOTE | 2023-10-13 09:46 | ED.GENADUL_ITS ---
Discharge Plan Discharge Details Chief Complaint: AMS/LOC Primary Care Provider: Gloria Fischer ED Provider: Ree Cardozo Home Meds and New Rx's Prescriptions: No Action lisinopril 10 MG tablet 10 mg PO DAILY levothyroxine 150 MCG tablet 150 mcg PO DAILY acetaminophen 650 mg Tablet 1,300 mg PO BID PRN ibuprofen [IBU-200] 200 mg Tablet 400 mg PO Q4-5H PRN cholecalciferol (vitamin D3) 25 mcg (1,000 unit) tablet 2 tab PO DAILY Patient Comments: 2 tablet by mouth once a day Medical Decision Making Emergent evaluation of altered mental status in the setting of fall. Initial differential includes bacterial illness, dementia, intracranial injury or CVA. Patient is well-appearing with a baseline examination at this time. Vital signs stable. There are no signs of trauma. Family is not available at this time. Will check labs to evaluate for infectious etiology and reassess. 1020: CBC reviewed, there is mild leukocytosis, no anemia 1330: CMP unremarkable. Urinalysis is infected. Culture has been sent. Antib iotics have been started. Given her vomiting, urinary tract infection and worsening from her baseline mental status, I will admit the patient to the hospital for IV antibiotics. Medical Records Medical records reviewed: Yes I reviewed the patient's medical records. Lab Data Lab results reviewed: Yes I reviewed the patient's lab results. ECG Data Attestation: I personally reviewed and interpreted this ECG (s) as follows: Interpretation: Sinus 69, normal axis, no acute ischemic changes HPI General Date/Time Provider Initiated Documentation: 10/13/23 09:46 . Limitations to Documentation: altered mental status . Information obtained by: EMS . HPI Narrative: 78-year-old female with past medical history of dementia, hypertension presents for evaluation after a fall. Patient has no complaints at this time but family called 911 this morning and insisted she be evaluated. Apparently last night she had a fall, unwitnessed, had some vomiting and incontinence though unknown bowel or bladder. Family reported to EMS that her dementia has been worsening recently. But that they wanted to make sure that the symptoms were not secondary to a TIA. Related Data Home Medications Medication Instructions Recorded Confirmed levothyroxine 150 mcg tablet 150 mcg PO DAILY 08/19/14 10/13/23 lisinopril 10 mg tablet 10 mg PO DAILY 08/19/14 10/13/23 acetaminophen 650 mg tablet 1,300 mg PO BID PRN 05/03/22 06/23/22 cholecalciferol (vitamin D3) 25 2 tab PO DAILY 05/03/22 10/13/23 mcg (1,000 unit) tablet ibuprofen 200 mg tablet (IBU-200) 400 mg PO Q4-5H PRN 05/03/22 10/13/23 Allergies Allergy/AdvReac Type Severity Reaction Status Date / Time No Known Allergies Allergy Unverified 10/13/23 11:35 General DAMON: 3 PFSH All Active Problems Multiple falls (Acute) Pneumonia due to COVID-19 virus (Acute) COVID (Acute) Memory impairment (Acute) Disorder of palatine bone (Acute) Pharyngoesophageal dysphagia (Acute) Anemia due to blood loss, acute (Acute) Diverticula of colon (Acute) Hypertension (Chronic) Hypothyroidism (Chronic) H/O Hodgkin's lymphoma (Chronic) Medical History Colitis Hx of radiation therapy Muscle fasciculation Seborrheic keratosis Fatigue Abdominal bloating Abdominal hernia Grief reaction Lingual dysarthria Pain of left thumb Acute low back pain Dermatitis Dumping syndrome Neck mass Sebaceous cyst Weakness Lower GI bleeding GI bleed Postcholecystectomy diarrhea Acute lower GI bleeding Hypertension Hypothyroidism History of Hodgkin's disease Surgical History H/O hernia repair [place] teeth removed History of thyroidectomy Hx of colonoscopy (~05/2022) H/O total knee replacement S/P hernia repair Status post laparoscopic repair of epigastric port hernia w/ mesh. following cholecystectomy in 2014 thyroidectomy Cholecystectomy H/O surgical procedure (10/24/14) a. cholecystectomy 10/25/14 Family History Brother Heart disease Social History Smoking/Tobacco Use Status: Former Tobacco Use Smoking risk assessment performed?: Yes Alcohol Intake: current Alcohol Intake frequency: holidays/special occasions only Alcohol type: wine Drug use: Never Substance use type: does not use Do you feel safe at home: Yes Do you feel safe in your relationship?: Yes Exam Narrative Exam Narrative: Review of Systems: All systems reviewed & are unremarkable except as noted in HPI and below: CONSTITUTIONAL: Alert Well-developed, no acute distress HEENT: NACT EYES: PERRL, no conjunctival injection CVS: RRR, No murmurs or gallops. Peripheral pulses 2+ and equal in all extremities Brisk capillary refill in all extremities. No peripheral edema RESP: Unlabored respiratory effort, Clear to auscultation bilaterally No wheezes rales or rhonchi GI: Soft, Nontender, Nondistended, No organomegaly MSK: Extremities with full range of motion, no deformity or TTP SKIN: Warm, Dry. No rashes or lesions. NEURO: No focal neurologic deficits. wire coiler II-XII grossly intact Sensation grossly intact Normal strength throughout
[2023-10-13 10:19] LABS: Abs Immature Grans 0.04 10^3/uL (0.0-0.06); Absolute Basophil Count 0.03 10^3/uL (0.0-0.2); Absolute Neutrophil Count 13.83 10^3/uL (1.2-6.7); Basophils % 0.2; HCT 43.3 % (36.0-46.0); HGB 14.4 g/dL (11.2-15.7); Immature Grans % 0.3; Lymphocytes % 1.4; MCH 30.5 pg (27.0-33.0); MCHC 33.3 % (32.0-36.0); MCV 92 fL (80-95); Monocytes % 3.4; Neutrophils % 94.7; Platelet Count 196 10^3/uL (130-400); RBC 4.72 10^6/uL (3.93-5.22); RDW 13.6 % (11.7-14.6); RDW-SD 46.4 fL
[2023-10-13 10:37] LABS: ALT 20 U/L (14-59); AST 26 U/L (15-37); Albumin 3.8 g/dL (3.4-5.0); Alkaline Phosphatase 58 U/L (46-116); Anion Gap 7.3 mmol/L (3-11); BUN 25 mg/dL (7-18); Bilirubin, Total 1.9 mg/dL (0.2-1.0); CO2 30.7 mmol/L (21.0-32.0); CREATININE 0.9 mg/dL (0.55-1.02); Calcium 9.7 mg/dL (8.5-10.1); Chloride 103 mmol/L (98-107); Estimated GFR 65.84 (mL/min/1.73m2); Glucose 154 mg/dL (74-106); Magnesium 2.1 mg/dL (1.8-2.4); Potassium 3.9 mmol/L (3.5-5.1); Sodium 141 mmol/L (136-145); Total Protein 7.6 g/dL (6.4-8.2); Troponin I < 50 ng/L (<or=60)
--- NOTE | 2023-10-13 10:40 | DI.CT_ITS ---
Exam(s) CT HEAD WO EXAM: CT HEAD WO CLINICAL HISTORY: fall, ams. TECHNIQUE: Imaging Protocol: Axial computed tomography images with coronal and sagittal reformatted images were created and reviewed COMPARISON: CT CT HEAD WO from 11/19/2022 FINDINGS: There are no skull fractures. There is a fluid level noted in the right maxillary sinus. Consistent with sinusitis. There may also be a smaller fluid level in left maxillary sinus but the head is tilt ed making evaluation difficult. There is no evidence of intracranial hemorrhage, mass effect, or shift of midline structures. There are no extra-axial fluid collections. Ventricular size is unchanged. There is symmetrical bilateral periventricular hypodensity consistent with chronic small vessel disease noted. There is also vascu lar calcification both within the internal carotid arteries and vertebral arteries at the skull base. IMPRESSION: Chronic small-vessel white matter ischemic changes as described above. No obvious acute intracranial findings. If clinically indicated follow-up MRI can be performed. Fluid level noted in the paranasal sinuses. RADIATION DOSE DELIVERED: Total DLP DATA REPOSITORY: All CT scans at this facility are submitted to the National Radiology Data Registry (NRDR) Dose Index Registry (DIR) with the [employer] (A[employer]). RADIATION OPTIMIZATION: All CT scans at this facility use at least one of these dose optimization te chniques: automated exposure control; mA and/or kV adjustment per patient size (includes targeted exa ms where dose is matched to clinical indication); or iterative reconstruction.
[2023-10-13 11:15] LABS: Bilirubin Negative (Negative); Blood Small (Negative); Clarity Cloudy (Clear); Glucose Negative (Negative); Ketones Negative (Negative); Leukocyte Esterase Small (Negative); Nitrite Positive (Negative); Specific Gravity 1.025 (1.005-1.025)
[2023-10-13 11:23] LABS: Bacteria Many HPF (Negative); C & S Indicated? Yes; Casts 0-2 Hyaline LPF (Negative); Crystals Negative HPF (Negative); Epithelial Cells Few HPF (Negative); Mucus Negative (Negative); WBC >50 HPF (0-5)
[2023-10-13] MEDS: Normal Saline 1,000 ML 1000 ML IV (11:59)
[2023-10-13] MEDS: Ondansetron 4 MG/2 ML VIAL IVP (12:05)
[2023-10-13] MEDS: cefTRIAXone 2 GM/50 ML BAG IVPB (12:06)
--- NOTE | 2023-10-13 16:40 | W.PM.HP.N ---
Date of service: 10/13/23 Time of Service: 12:15 Assessment and Plan Assessment and plan (1) UTI (urinary tract infection): Status: Acute Assessment and plan: Continue Ceftriaxone IV Awaiting urine culture results to be more specific with antibiotic therapy (2) Multiple falls: Status: Acute Assessment and plan: PT for safety eval (3) Hypothyroidism: Status: Chronic Assessment and plan: Continue home dose levothyroxine (4) Hypertension: Status: Chronic Assessment and plan: Continue lisinopril home dose , hold for SBP< 100 (5) Vomiting: Status: Acute Assessment and plan: PRN ondansetron (6) On deep vein thrombosis (DVT) prophylaxis: Status: Acute Assessment and plan: On LMWH (7) Discharge planning issues: Status: Acute Assessment and plan: CM to f/u , depends on safety evaluation done by PT , home vs rehab. History of Present Illness History of Present Illness Chief Complaint: UTI, fall and vomiting Narrative: This 78-year-old female patient, who lives independently at home, with her history of frequent falls, memory impairment, dementia, hypothyroidism and lymphoma presented today in the emergency room at [facility] via EMS with family for evaluation of hypertension, vomiting after a fall. In the emergency room, no signs of trauma were noticed, the patient was afebrile. Lab result in the emergency room are unremarkable except for leukocytosis and a positive urine for UTI. The patient was treated with IV ceftriaxone in the emergency room. The hospitalist accepted the patient on the medical surgical floor as an inpatient. When seen, the patient reported a past medical history of CVA but this cannot be found in her medical history, patient is alert and oriented denies nausea vomiting at this time. The patient denies pain chest pain, shortness of breath, coughing, she denies . or hematuria Review of Systems All systems reviewed & are unremarkable except as noted in HPI and below Cardiovascular Cardiovascular: Denies chest pain, Denies syncope and Denies lightheadedness Respiratory Respiratory: Reports system reviewed and no additional complaints, except as documented, Denies chest congestion and Denies cough Gastrointestinal Gastrointestinal: Reports system reviewed and no additional complaints, except as documented and Denies abdominal pain Genitourinary Genitourinary: Denies hematuria Musculoskeletal Musculoskeletal: Reports system reviewed and no additional complaints, except as documented Neurologic Neurologic: Denies syncope Psychiatric Psychiatric: Reports system reviewed and no additional complaints, except as documented PFSH All Active Problems Discharge planning issues (Acute) On deep vein thrombosis (DVT) prophylaxis (Acute) Vomiting (Acute) UTI (urinary tract infection) (Acute) Multiple falls (Acute) Pneumonia due to COVID-19 virus (Acute) COVID (Acute) Memory impairment (Acute) Disorder of palatine bone (Acute) Pharyngoesophageal dysphagia (Acute) Anemia due to blood loss, acute (Acute) Diverticula of colon (Acute) Hypertension (Chronic) Hypothyroidism (Chronic) H/O Hodgkin's lymphoma (Chronic) Medical History Colitis Hx of radiation therapy Muscle fasciculation Seborrheic keratosis Fatigue Abdominal bloating Abdominal hernia Grief reaction Lingual dysarthria Pain of left thumb Acute low back pain Dermatitis Dumping syndrome Neck mass Sebaceous cyst Weakness Lower GI bleeding GI bleed Postcholecystectomy diarrhea Acute lower GI bleeding Hypertension Hypothyroidism History of Hodgkin's disease Surgical History H/O hernia repair [place] teeth removed History of thyroidectomy Hx of colonoscopy (~05/2022) H/O total knee replacement S/P hernia repair Status post laparoscopic repair of epigastric port hernia w/ mesh. following cholecystectomy in 2014 thyroidectomy Cholecystectomy H/O surgical procedure (10/24/14) a. cholecystectomy 10/25/14 Family History Brother Heart disease Social History Smoking/Tobacco Use Status: Former Tobacco Use Smoking risk assessment performed?: Yes Alcohol Intake: current Alcohol Intake frequency: holidays/special occasions only Alcohol type: wine Drug use: Never Substance use type: does not use Housing: house Do you feel safe at home: Yes Do you feel safe in your relationship?: Yes Meds Allergies and Home Medications Allergies Allergy/AdvReac Type Severity Reaction Status Date / Time No Known Allergies Allergy Unverified 10/13/23 11:35 Home Medications Medication Instructions Recorded Confirmed Type levothyroxine 150 mcg tablet 150 mcg PO DAILY 08/19/14 10/13/23 History lisinopril 10 mg tablet 10 mg PO DAILY 08/19/14 10/13/23 History acetaminophen 650 mg tablet 1,300 mg PO BID PRN 05/03/22 10/13/23 History cholecalciferol (vitamin D3) 25 2 tab PO DAILY 05/03/22 10/13/23 History mcg (1,000 unit) tablet ibuprofen 200 mg tablet (IBU-200) 400 mg PO Q4-5H PRN 05/03/22 10/13/23 History Exam Narrative Exam Narrative: The patient is alert and oriented x3 no focal deficit noticed. Speaks in full sentences, no respiratory distress, lungs are clear, S1-S2 regular rhythm and rate. Abdomen is soft nontender nondistended bowel sounds are present No CVA tenderness No swelling to the extremities Hematoma noticed to the right lower extremity with a scab, patient reporting fall 2 weeks ago and sustaining this injury. Results Labs 10/13/23 10:10 10/13/23 10:10 Labs: Laboratory Results - last 24 hr 10/13/23 10/13/23 10:10 10:57 WBC 14.60 H RBC 4.72 Hgb 14.4 Hct 43.3 MCV 92 MCH 30.5 MCHC 33.3 RDW 13.6 Plt Count 196 MPV 10.0 Immature Gran % 0.3 Neutrophils % 94.7 Lymphocytes % 1.4 Monocytes % 3.4 Eosinophils % 0.0 Basophils % 0.2 Nucleated RBC % 0.0 Absolute Neutrophils 13.83 H Absolute Lymphocytes 0.20 L Absolute Monocytes 0.50 Absolute Eosinophils 0.00 Absolute Basophils 0.03 Sodium 141 Potassium 3.9 Chloride 103 Carbon Dioxide 30.7 Anion Gap 7.3 BUN 25 H Creatinine 0.9 Est GFR (CKD-EPI 2020) 65.84 Glucose 154 H Calcium 9.7 Magnesium 2.1 Total Bilirubin 1.9 H AST 26 ALT 20 Alkaline Phosphatase 58 Troponin I < 50 Total Protein 7.6 Albumin 3.8 Urine Color Yellow Urine Clarity Cloudy Urine pH 6.0 Ur Specific [place] 1.025 Urine Protein 100 H Urine Ketones Negative Urine Blood Small H Urine Nitrite Positive H Urine Bilirubin Negative Urine Urobilinogen 1.0 H Ur Leukocyte Esterase Small H Urine RBC 5-10 H Urine WBC >50 H Ur Epithelial Cells Few Urine Crystals Negative Urine Bacteria Many Urine Casts 0-2 Hyaline Urine Mucus Negative Ur Culture Indicated? Yes Urine Glucose Negative Last Vital Signs Temp 37.3 C 10/13/23 12:10 Pulse 67 10/13/23 15:02 Resp 20 10/13/23 15:10 BP 185/87 H 10/13/23 15:02 Pulse Ox 97 10/13/23 15:10 Time Spent Time spent with Patient: >75 minutes Time was spent: preparing to see the patient(eg.review tests), ordering medications,tests, procedures, referring, communicating with other health geriatric care manager, indepentently interpreting results, counseling the patient and care coordination
[2023-10-13] MEDS: Enoxaparin 40 MG/0.4 ML SYR SC (18:15)
[2023-10-13] MEDS: Lisinopril 10 MG TAB 5 MG PO (18:15)
[2023-10-14] VITALS (8 sets, daily range): BP systolic 112–179; BP diastolic 69–84; PULSE 56–74; RESP 15–18; TEMP 36.7–37.5; O2SAT 92–98
--- NOTE | 2023-10-14 | DI.RAD_ITS ---
Exam(s) XR FOOT LT LIMITED EXAM: XR FOOT LT LIMITED CLINICAL HISTORY: pain s/p fall. TECHNIQUE: 2D digital imaging was performed of the left foot. Two images were obtained. AP and lat eral views were obtained. COMPARISON: No exams were available for comparison FINDINGS: BONES: No acute fracture is present. No bony destructive lesion is seen. JOINTS: No dislocation present. SOFT TISSUE: Normal. IMPRESSION: No acute fracture or dislocation. DATA REPOSITORY: RADIATION DOSE DELIVERED:
--- NOTE | 2023-10-14 | DI.RAD_ITS ---
Exam(s) XR PORTABLE CHEST AP EXAM: XR PORTABLE CHEST AP CLINICAL HISTORY: Crackles, wet cough TECHNIQUE: 2D digital imaging was performed of the chest. One image was obtained. An AP view was ob tained. COMPARISON: CR,XR XR CHEST 1V IN DI DEPT from 11/19/2022 FINDINGS: There is poor inspiration. MEDIASTINUM: Normal. HEART: Cardiomegaly. PULMONARY VASCULATURE: Tortuosity and ectasia of the thoracic aorta. LUNGS: Linear atelectasis is seen in the lungs. No focal consolidating infiltrates are seen. PLEURAL SPACE: No pleural effusion or pneumothorax. BONE:Within normal limits for the patient's age. OTHER FINDINGS:Normal. IMPRESSION: 1. Cardiomegaly. 2. No focal consolidating infiltrates or effusions. DATA REPOSITORY: RADIATION DOSE DELIVERED:
[2023-10-14] MEDS: Levothyroxine 150 MCG TAB PO (05:52)
[2023-10-14 06:34] LABS: Abs Immature Grans 0.05 10^3/uL (0.0-0.06); Absolute Basophil Count 0.04 10^3/uL (0.0-0.2); Absolute Eosinophil Count 0.12 10^3/uL (0.0-0.7); Absolute Lymphocyte Count 0.49 10^3/uL (1.2-3.4); Absolute Monocyte Count 0.66 10^3/uL (0.1-0.8); Absolute Neutrophil Count 7.96 10^3/uL (1.2-6.7); Basophils % 0.4; Eosinophils % 1.3; HCT 38.8 % (36.0-46.0); HGB 12.6 g/dL (11.2-15.7); Immature Grans % 0.5; Lymphocytes % 5.3; MCH 30.4 pg (27.0-33.0); MCHC 32.5 % (32.0-36.0); MCV 94 fL (80-95); MPV 10.3 fL (8.0-11.0); Monocytes % 7.1; Neutrophils % 85.4; Platelet Count 180 10^3/uL (130-400); RBC 4.15 10^6/uL (3.93-5.22); RDW 13.9 % (11.7-14.6); RDW-SD 47.7 fL; WBC 9.32 10^3/uL (4.4-10.8)
[2023-10-14 06:59] LABS: Anion Gap 7.3 mmol/L (3-11); BUN 20 mg/dL (7-18); CO2 30.7 mmol/L (21.0-32.0); CREATININE 0.6 mg/dL (0.55-1.02); Calcium 8.8 mg/dL (8.5-10.1); Chloride 105 mmol/L (98-107); Estimated GFR 92.39 (mL/min/1.73m2); Glucose 98 mg/dL (74-106); Potassium 3.7 mmol/L (3.5-5.1); Sodium 143 mmol/L (136-145)
[2023-10-14] MEDS: Lisinopril 10 MG TAB PO (09:38)
[2023-10-14] MEDS: Cholecalciferol (Vitamin D3) 1,000 UNIT TAB 2000 UNITS PO (09:38)
[2023-10-14] MEDS: Normal Saline 500 ML 100 ML IV (09:38)
[2023-10-14] MEDS: cefTRIAXone 2 GM/50 ML BAG IVPB (09:38)
[2023-10-14] MEDS: Normal Saline Flush 10 ML SYR IVP (09:39)
--- NOTE | 2023-10-14 10:42 | W.PM.PROGNOT ---
Date of Service Date of service: 10/14/23 Time of Service: 10:42 Assessment and Plan Assessment and plan (1) UTI (urinary tract infection): Status: Acute Assessment and plan: Urine culture results shows GNR and will be awaiting to be more specific with antibiotic therapy Continue Ceftriaxone IV (2) Multiple falls: Status: Acute Assessment and plan: PT for safety eval Left foot pain s/p fall; XR ordered and APAP scheduled (3) Hypothyroidism: Status: Chronic Assessment and plan: Continue home dose levothyroxine (4) Hypertension: Status: Chronic Assessment and plan: Continue lisinopril home dose , hold for SBP< 100 (5) Vomiting: Status: Acute Assessment and plan: PRN ondansetron (6) On deep vein thrombosis (DVT) prophylaxis: Status: Acute Assessment and plan: On LMWH (7) Discharge planning issues: Status: Acute Assessment and plan: CM to f/u , depends on safety evaluation done by PT , home vs rehab. (8) Bibasilar crackles: Status: Acute Assessment and plan: uncertain about SOB going to the bathroom Wet cough and crackles to lungfileds: Chest XR, considering furosemide (9) Leukocytosis: Status: Acute Assessment and plan: Resolved Exam Narrative Exam Narrative: The patient is alert and oriented x3 no focal deficit noticed. Speaks in full sentences, no respiratory distress, bibasilar crackles to lung weaver, S1-S2 regular rhythm and rate. Abdomen is soft nontender nondistended bowel sounds are present No CVA tenderness No swelling to the extremities Hematoma noticed to the right lower extremity with a scab, patient reporting fall 2 weeks ago and sustaining this injury. left foot is intact, ROM intact Objective Last Vital Signs Temp 36.9 C 10/14/23 07:13 Pulse 56 L 10/14/23 07:13 Resp 16 10/14/23 07:13 BP 164/84 H 10/14/23 07:13 Pulse Ox 98 10/14/23 08:02 Laboratory Results - last 24 hr 10/13/23 10/14/23 10:57 06:05 WBC 9.32 RBC 4.15 Hgb 12.6 Hct 38.8 MCV 94 MCH 30.4 MCHC 32.5 RDW 13.9 Plt Count 180 MPV 10.3 Immature Gran % 0.5 Neutrophils % 85.4 Lymphocytes % 5.3 Monocytes % 7.1 Eosinophils % 1.3 Basophils % 0.4 Nucleated RBC % 0.0 Absolute Neutrophils 7.96 H Absolute Lymphocytes 0.49 L Absolute Monocytes 0.66 Absolute Eosinophils 0.12 Absolute Basophils 0.04 Sodium 143 Potassium 3.7 Chloride 105 Carbon Dioxide 30.7 Anion Gap 7.3 BUN 20 H Creatinine 0.6 Est GFR (CKD-EPI 2020) 92.39 Glucose 98 Calcium 8.8 Urine Color Yellow Urine Clarity Cloudy Urine pH 6.[address] 1.025 Urine Protein 100 H Urine Ketones Negative Urine Blood Small H Urine Nitrite Positive H Urine Bilirubin Negative Urine Urobilinogen 1.0 H Ur Leukocyte Esterase Small H Urine RBC 5-10 H Urine WBC >50 H Ur Epithelial Cells Few Urine Crystals Negative Urine Bacteria Many Urine Casts 0-2 Hyaline Urine Mucus Negative Ur Culture Indicated? Yes Urine Glucose Negative Time Spent with Patient Time Spent with Patient: >50 minutes Time was spent: preparing to see the patient(eg.review tests), obtaining and/or reviewing separately otained hiistory, ordering medications,tests, procedures, referring, communicating with other health farm or ranch animal caretaker, indepentently interpreting results, counseling the patient, care coordination and other (Reaching out to significant people about care plan )
--- NOTE | 2023-10-14 11:00 | PDOC.CMIN ---
Date of service: 10/14/23 Time of Service: 11:00 Care Management Initial Assmt Initial Assessment REASON FOR HOSPITALIZATION:: UTI, vomiting, falls PREVIOUS FUNCTIONAL STATUS/SOCIAL/FAMILY SUPPORTS:: Payton lives in [place] in her own home. She has a tenant who lives with her and is supportive, and helps prepare food. Her brother and sister in law live nearby and are supportive. She uses a walking stick, and is independent at baseline. CURRENT FUNCTIONAL STATUS:: Payton was sitting up in her chair when CM met with her. She stated that she feels much better today than when she arrived. She showed CM a bump on her leg, which she stated was from a previous fall, and she stated that it looks a lot better today. Per report, the provider is awaiting sensitivities to determine her antibiotic course for discharge. PT recommends outpatient PT. CM will continue to follow. ADVANCE DIRECTIVES:: Not on file at [facility]. Has patient been provided with info about the portal/API?: Yes Did the patient sign up for the portal?: Yes CODE STATUS:: Full Code INSURANCE COVERAGE / FINANCIAL ISSUES:: [facility]. / supplement. CURRENT HOME/COMMUNITY SERVICES/EQUIPMENT:: walking sticks for walking outside PRIMARY CARE PHYSICIAN:: Gloria Fischer POTENTIAL DISCHARGE NEEDS:: Evaluations for further needs, follow up appointments. PATIENT/FAMILY EDUCATION NEEDS:: Review discharge instructions and limitations, discussion of self care needs including ask me three. ANTICIPATED BARRIERS TO DISCHARGE:: None identified. TRANSPORTATION:: Via private vehicle by a friend. PLAN:: Anticipate Payton will return home once medically cleared. She will follow up with her PCP and discharge plan of care. CM will continue to follow. PFSH All Active Problems (Updated 10/14/23 @ 12:57 by Jillian Wharton APRN) Bibasilar crackles (Acute) Leukocytosis (Acute) Discharge planning issues (Acute) On deep vein thrombosis (DVT) prophylaxis (Acute) Vomiting (Acute) UTI (urinary tract infection) (Acute) Multiple falls (Acute) Pneumonia due to COVID-19 virus (Acute) COVID (Acute) Memory impairment (Acute) Disorder of palatine bone (Acute) Pharyngoesophageal dysphagia (Acute) Anemia due to blood loss, acute (Acute) Diverticula of colon (Acute) Hypertension (Chronic) Hypothyroidism (Chronic) H/O Hodgkin's lymphoma (Chronic) Medical History Colitis Hx of radiation therapy Muscle fasciculation Seborrheic keratosis Fatigue Abdominal bloating Abdominal hernia Grief reaction Lingual dysarthria Pain of left thumb Acute low back pain Dermatitis Dumping syndrome Neck mass Sebaceous cyst Weakness Lower GI bleeding GI bleed Postcholecystectomy diarrhea Acute lower GI bleeding Hypertension Hypothyroidism History of Hodgkin's disease Surgical History H/O hernia repair [place] teeth removed History of thyroidectomy Hx of colonoscopy (~05/2022) H/O total knee replacement S/P hernia repair Status post laparoscopic repair of epigastric port hernia w/ mesh. following cholecystectomy in 2014 thyroidectomy Cholecystectomy H/O surgical procedure (10/24/14) a. cholecystectomy 10/25/14 Family History Brother Heart disease Social History Smoking/Tobacco Use Status: Former Tobacco Use Smoking risk assessment performed?: Yes Alcohol Intake: current Alcohol Intake frequency: holidays/special occasions only Alcohol type: wine Drug use: Never Substance use type: does not use Housing: house Do you feel safe at home: Yes Do you feel safe in your relationship?: Yes
[2023-10-14] MEDS: Acetaminophen 500 MG TAB 1000 MG PO (12:55)
--- NOTE | 2023-10-14 15:32 | PT.INIE ---
PT Notes Visit Reasons: UTI, Vomiting, Falls Inpatient Physical Therapy Evaluation Date: 10/14/2023 Referring Doctor: Jillian Wharton APRN PT Orders: PT CONSULT: Fall Safety assessment Precautions: Fall. Standard. Activity as tolerated. Patient Profile/Admitting Diagnosis: Payton is a 78-year-old female admitted for management of urinary tract infection, multiple falls, hypothyroidism, hypertension, and vomtting. Referral was sent to assess for safety level in anticipation of discharge to home. PMHX: All Active Problems Discharge planning issues (Acute) On deep vein thrombosis (DVT) prophylaxis (Acute) Vomiting (Acute) UTI (urinary tract infection) (Acute) Multiple falls (Acute) Pneumonia due to COVID-19 virus (Acute) COVID (Acute) Memory impairment (Acute) Disorder of palatine bone (Acute) Pharyngoesophageal dysphagia (Acute) Anemia due to blood loss, acute (Acute) Diverticula of colon (Acute) Hypertension (Chronic) Hypothyroidism (Chronic) H/O Hodgkin's lymphoma (Chronic) Medical History Colitis Hx of radiation therapy Muscle fasciculation Seborrheic keratosis Fatigue Abdominal bloating Abdominal hernia Grief reaction Lingual dysarthria Pain of left thumb Acute low back pain Dermatitis Dumping syndrome Neck mass Sebaceous cyst Weakness Lower GI bleeding GI bleed Postcholecystectomy diarrhea Acute lower GI bleeding Hypertension Hypothyroidism History of Hodgkin's disease Surgical History H/O hernia repair [place] teeth removed History of thyroidectomy Hx of colonoscopy (~05/2022) H/O total knee replacement S/P hernia repair Status post laparoscopic repair of epigastric port hernia w/ mesh. following cholecystectomy in 2014 Thyroidectomy Cholecystectomy H/O surgical procedure (10/24/14) a. cholecystectomy 10/25/14 Social History/Home Situation: []Payton lives alone with her pets with relatives nearby and supportive. Current Functional Limitations: []At baseline she ambulates with 2 walking sticks Equipment Owned/DME: []SPC, walking sticks Subjective: Agreeable to using front-wheeled walker to increase her level of stability at home. Would like outpatient PT sergices to work on her existing balance issues, friend can drive her. Hopeful about being able to go home when safe. States the she only uses waling stick at home. Objective: General Observation: Seated at edge of bed. No lines. Wound on left anterior macias that has partially scabbed. Mental Status: Alert and oriented as to person and place. All responses appropriate throughout session. Pain: Reported pain in L foot which she said is something new. ROM: Right Upper Extremity: Shoulder Flexion lacks the last 25% of AROM. Shoulder abduction lacks the last 25% of AROM. Elbow flexion WFL. Wrist flexion WFL. Functional opening and closing of hand WFL. Left Upper Extremity: Shoulder Flexion lacks the last 25% of AROM. Shoulder abduction lacks the last 25% of AROM. Elbow flexion WFL. Wrist flexion WFL. Functional opening and closing of hand WFL. Right Lower Extremity: Hip flexion WFL. Hip abduction WFL. Knee flexion WFL. Ankle dorsiflexion to neutral only. Ankle plantarflexion WFL. Left Lower Extremity: Hip flexion WFL. Hip abduction WFL. Knee flexion WFL. Ankle dorsiflexion to neutral only. Ankle plantarflexion WFL. Strength: Right Upper Extremity: Shoulder flexors 3-/5. Shoulder abductors 4-/5. Elbow flexors 4-/5. Elbow extensors 4-/5. Machine Bookkeeper strong. Left Upper Extremity: Shoulder flexors 3-/5. Shoulder abductors 4-/5. Elbow flexors 4-/5. Elbow extensors 4-/5. Machine Bookkeeper strong. Right Lower Extremity: Hip flexors 4-/5. Hip abductors 4-/5. Knee flexors 4/5. Knee extensors 3+/5. Ankle dorsiflexors 3-/5. Ankle plantarflexors 4-/5. Left Lower Extremity: Hip flexors 4-/5. Hip abductors 4-/5. Knee flexors 4/5. Knee extensors 3+/5. Ankle dorsiflexors 3-/5. Ankle plantarflexors 4-/5. Sensation: Intact as to pain and pressure in B LE Bed Mobility/Transfers: Moderate cues provided for definite use of hands for support, movement sequence, and adjustment of ALMA and posture to reduce fall risk Sit to stand with stand by assist Stand to sit with stand by assist Bed to chair with stand by assist Chair to bed with stand by assist Gait: Facilitated safe and correct performance of level surface ambulation covering a distance of 150 feet +150 feet using a front-wheeled walker with moderate verbal cueing provided for limb advancement, weight bearing through B UE and LE. Gait mildly shuffling, base of support wide. Stairs: Guided patient has safe and correct negotiation 6 x 4 x 6 inch steps holding onto bilateral rails with standby assist provided with no report of increased pain on the right LE. Balance: Static Sitting: Good Dynamic Sitting: Good Static Standing: Fair Dynamic Standing: Fair Special Tests: Mobility Limitations Standardized Measure [facility] AM-PAC 6 clicks Basic Mobility Inpatient Short Form: Raw Score: 23 CMS Score: 11% deficit 30-second chair rise score: 7x 4-Stage Balance Test: Unable to hold all 4 positions for 10 seconds Informed Consent/Education: Patient instructed in purpose of PT consult and plan of care. Assessment: Patient at moderate risk for falls requiring the use of FWW for all mobility ADL performance. She will need outpatient PT services for balance progression and progressive strengthening. Payton is a 78-year-old female admitted for management of urinary tract infection, multiple falls, hypothyroidism, hypertension, and vomitting. Patient presents with clinical signs and symptoms consistent with current/admitting diagnoses that have resulted to mobility limitations, gait instability, generalized weakness, and overall ADL decline as demonstrated by the following impairment level findings: 1. Decreased strength to B UE/LE major muscle groups 2. Impaired sitting/standing balance 3. Impaired activity tolerance 4. Limitation of joint range of motion in shoulders Impairments are contributing to the following functional limitations: 1. Difficulty with ambulation without assistive device 2. Increased completion time for mobility ADL performance 3. Increased risk for falls 4. Difficulty with managing steps alone safely Patient is [place] [id number] moderate complexity based on the following: History: 78-year-old female with past medical history as indicated above Examination: Demonstrable impairment in strength, balance, and mobility level with underlying impairments and functional limitations as exhibited above as well as deficit score of 11% utilizing the [facility] Mobility Inpatient Short Form Presentation: Stable Decision Makin moderate complexity Plan of Care/Treatment Plan: 1-2x/day, 7 days/week x 1 week. Plan of care has been reviewed with the SHOWROOM SALES ASSISTANT providing the service under Physical Therapy direction. Initiate Physical Therapy intervention for pain management as needed, strengthening, bed mobility, transfers, gait, stairs, balance training, and use of assistive device. DISCHARGE RECOMMENDATIONS: [] Home with no services [] [] Home with services [specify] [X] Home with outpatient PT services for progressive strengthening, balance retraining, and fall reduction strategies [] SNF for continued rehabilitation [] [] Program Evaluator Care [] [] SNF versus LTC based on ability to participate and progress [] discharge recommendations [X] Will benefit from the use of a front wheeled walker to maximize independence and reduce fall risk in the community. TREATMENT CODE/TIME: 72471 x 24 minutes for 1 unit beginning at 14:58 PM. Thank you for the opportunity to participate in the care of this patient. Sho Kraft PT, DPT, CLT [facility] [place], [place]
--- NOTE | 2023-10-14 15:37 | PGE_ITS ---
Date of Service Date of service: 10/14/23 Time of Service: 15:37 Assessment and Plan Assessment and plan (1) UTI (urinary tract infection): Status: Acute Assessment and plan: Urine culture results shows GNR and will be awaiting to be more specific with antibiotic therapy Continue Ceftriaxone IV (2) Multiple falls: Status: Acute Assessment and plan: PT for safety eval Left foot pain s/p fall; XR ordered and APAP scheduled Left foot XR is negative (3) Hypothyroidism: Status: Chronic Assessment and plan: As mentioned earlier will continue home dose levothyroxine (4) Hypertension: Status: Chronic Assessment and plan: BP is stable Continue lisinopril home dose , hold for SBP< 100 (5) Vomiting: Status: Acute Assessment and plan: PRN ondansetron, no further nausea and vomiting (6) On deep vein thrombosis (DVT) prophylaxis: Status: Acute Assessment and plan: On LMWH (7) Bibasilar crackles: Status: Acute Assessment and plan: uncertain about SOB going to the bathroom Wet cough and crackles to lung weaver: Chest XR appears congested, furosemide 10 mg IVP (8) Leukocytosis: Status: Acute Assessment and plan: Resolved (9) Discharge planning issues: Status: Acute Assessment and plan: CM to f/u , depends on safety evaluation done by PT , home vs rehab. PT: [X] Home with outpatient PT services for progressive strengthening, balance retraining, and fall reduction strategies [X] Will benefit from the use of a front wheeled walker to maximize independence and reduce fall risk in the community Subjective Subjective Patient reports: feels better, tolerating liquids well, tolerating a regular diet, voiding w/o difficulty, flatus, bowel movement and other (report new pain in left foot on ambulation, moist cough); denies diarrhea, blood in stool, nausea, vomiting, shortness of breath or fever Exam Narrative Exam Narrative: Alert and oriented x3 no focal deficit noticed. Speaks in full sentences, but does not recall how long she has been here for nor the first time we met; no respiratory distress, crackles to lower lung weaver, S1-S2 regular rhythm and rate. Abdomen is soft nontender nondistended bowel sounds are present No CVA tenderness No swelling to the extremities Hematoma remains noticeable to the right lower extremity with a scab, less swollen then 10/13, still warm and red, patient reporting fall 2 weeks ago and sustaining this injury. left foot is intact, ROM intact Objective Last Vital Signs Temp 37.1 C 10/14/23 14:52 Pulse 74 10/14/23 14:52 Resp 15 10/14/23 14:52 BP 112/74 10/14/23 14:52 Pulse Ox 93 10/14/23 14:52 Laboratory Results - last 24 hr 10/14/23 06:05 WBC 9.32 RBC 4.15 Hgb 12.6 Hct 38.8 MCV 94 MCH 30.4 MCHC 32.5 RDW 13.9 Plt Count 180 MPV 10.3 Immature Gran % 0.5 Neutrophils % 85.4 Lymphocytes % 5.3 Monocytes % 7.1 Eosinophils % 1.3 Basophils % 0.4 Nucleated RBC % 0.0 Absolute Neutrophils 7.96 H Absolute Lymphocytes 0.49 L Absolute Monocytes 0.66 Absolute Eosinophils 0.12 Absolute Basophils 0.04 Sodium 143 Potassium 3.7 Chloride 105 Carbon Dioxide 30.7 Anion Gap 7.3 BUN 20 H Creatinine 0.6 Est GFR (CKD-EPI 2020) 92.39 Glucose 98 Calcium 8.8 Time Spent with Patient Time Spent with Patient: >50 minutes Time was spent: preparing to see the patient(eg.review tests), ordering medications,tests, procedures, referring, communicating with other health hearing care practitioner, indepentently interpreting results, counseling the patient and care coordination
[2023-10-14] MEDS: Furosemide 20 MG/2 ML VIAL 10 MG IVP (16:41)
[2023-10-14] MEDS: Enoxaparin 40 MG/0.4 ML SYR SC (17:41)
[2023-10-15 01:06] VITALS: O2SAT 94
[2023-10-15 03:03] VITALS: BP 114/71; PULSE 59; RESP 15; TEMP 36.1; O2SAT 91
[2023-10-15] MEDS: Levothyroxine 150 MCG TAB PO (05:49)
[2023-10-15 07:31] VITALS: BP 170/80; PULSE 61; RESP 18; TEMP 36.6; O2SAT 92
[2023-10-15] MEDS: Normal Saline Flush 10 ML SYR IVP (07:53)
[2023-10-15] MEDS: Cholecalciferol (Vitamin D3) 1,000 UNIT TAB 2000 UNITS PO (07:53)
[2023-10-15] MEDS: Lisinopril 10 MG TAB PO (07:53)
--- NOTE | 2023-10-15 08:55 | W.PM.PROGNOT ---
Date of Service Date of service: 10/15/23 Time of Service: 08:55 Assessment and Plan Assessment and plan (1) UTI (urinary tract infection): Status: Acute Assessment and plan: Urine culture results shows GNR and will be awaiting to be more specific with antibiotic therapy Continue Ceftriaxone IV (2) Multiple falls: Status: Acute Assessment and plan: PT for safety eval Left foot pain s/p fall; XR ordered and APAP scheduled Left foot XR is negative (3) Hypothyroidism: Status: Chronic Assessment and plan: As mentioned earlier will continue home dose levothyroxine (4) Hypertension: Status: Chronic Assessment and plan: BP is stable Continue lisinopril home dose , hold for SBP< 100 (5) Vomiting: Status: Acute Assessment and plan: PRN ondansetron, no further nausea and vomiting (6) On deep vein thrombosis (DVT) prophylaxis: Status: Acute Assessment and plan: On LMWH (7) Bibasilar crackles: Status: Acute Assessment and plan: uncertain about SOB going to the bathroom Wet cough and crackles to lung weaver: Chest XR appears congested, furosemide 10 mg IVP (8) Leukocytosis: Status: Acute Assessment and plan: Resolved (9) Discharge planning issues: Status: Acute Assessment and plan: CM to f/u , depends on safety evaluation done by PT , home vs rehab. PT: [X] Home with outpatient PT services for progressive strengthening, balance retraining, and fall reduction strategies [X] Will benefit from the use of a front wheeled walker to maximize independence and reduce fall risk in the community Objective Last Vital Signs Temp 36.6 C 10/15/23 07:31 Pulse 61 10/15/23 07:31 Resp 18 10/15/23 07:31 BP 170/80 H 10/15/23 07:31 Pulse Ox 92 10/15/23 07:31
--- NOTE | 2023-10-15 08:58 | W.PM.DS.N ---
Date of service: 10/15/23 Time of Service: 08:58 DS: Diagnosis Discharge Diagnosis (1) UTI (urinary tract infection): Status: Acute (2) Multiple falls: Status: Acute (3) Hypothyroidism: Status: Chronic (4) Hypertension: Status: Chronic (5) Vomiting: Status: Acute (6) On deep vein thrombosis (DVT) prophylaxis: Status: Acute (7) Bibasilar crackles: Status: Acute (8) Leukocytosis: Status: Acute (9) Discharge planning issues: Status: Acute Discharge Plan Disposition Patient Disposition: Home Condition: Stable Discharge Details Reason For Visit: UTI, Vomiting, Falls Admit Date/Time: 10/13/23 12:18 Admit Provider: Robbi Owen Attending Provider: Robbi Owen Primary Care Provider: Gloria Fischer Hospital Course Hospital Course: This 78-year-old female patient, who lives independently at home, with her history of frequent falls, transient ischemic attack, memory impairment, dementia, hypothyroidism and lymphoma presented today in the emergency room at [facility] on 10/13/2023, via EMS with family for evaluation of hypertension, vomiting after a fall. In the emergency room, no signs of trauma were noticed, the patient was afebrile. Lab result in the emergency room are unremarkable except for leukocytosis and a positive urine for UTI. The patient was treated with IV ceftriaxone in the emergency room. The hospitalist accepted the patient on the medical surgical floor as an inpatient. During her stay, the patient's blood pressure was controlled upon taking her home antihypertensive medication .She showed no further leukocystosis, remained afebrile. 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 Reported left foot pain after falling INTERNAL GRINDING MACHINE OPERATOR, XR was negative for lesions. She received one dose of furosemide 10 mg for crackles heard lower lung weaver, her chest XR showed no pleural effusion nor pneumonia, but minimal congestion. The patient breath sounds are clear on discharge. She might benefit from additional diuretic such as hydrochlorothiazide as seen fit by her primary care provider. The patient's urine culture grew klebsiella Pneumoniae and the patient received one dose of Fosfomycin 3 gm orally. She will need follow up urinalysis. Physical therapy evaluated the patient and recommended outpatient physical therapy and mentioned that the patient would benefit from a front wheelwalker. The patient will need a follow up with her PCP this week and referral was sent for outpatient physical therapy. Home Meds and New Rx's Prescriptions: Continued lisinopril 10 MG tablet 10 mg PO DAILY levothyroxine 150 MCG tablet 150 mcg PO DAILY acetaminophen 650 mg Tablet 1,300 mg PO BID PRN ibuprofen [IBU-200] 200 mg Tablet 400 mg PO Q4-5H PRN cholecalciferol (vitamin D3) 25 mcg (1,000 unit) tablet 2 tab PO DAILY Patient Comments: 2 tablet by mouth once a day Discharge Instructions Referrals: Gloria Fischer [Primary Care Provider] - (Patient presented with nausea, vomiting and a positive urine, initially treated with Ceftriaxone IV. Urine culture resulting in Klebsiella Pneumoniae,one dose of Fosfomycin 3 gm given. Patient needs f/u with repeated urine, no further symptoms at discharge time . ) [facility] [OTHER] - (DISCHARGE RECOMMENDATIONS: FROM PT [X] Home with outpatient PT services for progressive strengthening, balance retraining, and fall reduction strategies [discharge recommendations [X] Will benefit from the use of a front wheeled walker to maximize independence and reduce fall risk in the community. ) Activity:: Activity as Tolerated Equipment/Supplies:: Walker Diet:: heart healthy DS: Summary Time Spent with Patient providing and/or coordinating discharge services: Greater than 30 minutes Status at Discharge Functional status at discharge: uses cane/walker Overall status at discharge: patient is back to baseline Mental Status: mental status grossly normal Speech and Movement: speech and movement normal Mood: congruent mood Affect: normal affect Exam Narrative Exam Narrative: Alert and oriented x3 No focal deficit noticed, but memory impairment noticed as per history. Speaks in full sentences, no respiratory distress, Clear lung weaver, S1-S2 regular rhythm and rate. 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 Psych Mental Status: mental status grossly normal Speech and Movement: speech and movement normal Mood: congruent mood Affect: normal affect DS: Data Vitals/I&O Vitals and I&O: Vital Signs Temperature 36.6 C 10/15/23 07:31 Temperature Source Tympanic 10/15/23 07:31 Pulse 61 10/15/23 07:31 Pulse Rhythm Regular 10/15/23 01:06 Pulse 68 10/13/23 15:10 Respiratory Rate 18 10/15/23 07:31 Respiratory Effort Normal, Non-Labored 10/15/23 07:57 Respiratory Depth Normal 10/15/23 07:57 Respiratory Pattern Normal 10/15/23 07:57 Blood Pressure 170/80 H 10/15/23 07:31 Blood Pressure Mean 122 10/13/23 15:02 Pulse Oximetry 92 10/15/23 07:31 Oxygen Delivery Method Room Air 10/15/23 07:31 Oxygen Flow Rate 0 10/15/23 07:31 Pain Level 0 10/15/23 07:31 Intake & Output 10/14/23 10/14/23 10/15/23 11:59 23:59 11:59 Intake Total 560 / 560 Output Total 300 / 300 Balance -300 / 260 560 / 260 Intake: IV 560 / 560 Output: Urine 300 / 300 Other: Urine Color Yellow Yellow Urine Appearance Clear Clear Urine Odor Normal Comment voided in toilet Voiding Methods Bedside Commode Toilet Diaper Incontinent PFSH All Active Problems (Updated 10/14/23 @ 12:57 by Jillian Wharton APRN) Bibasilar crackles (Acute) Leukocytosis (Acute) Discharge planning issues (Acute) On deep vein thrombosis (DVT) prophylaxis (Acute) Vomiting (Acute) UTI (urinary tract infection) (Acute) Multiple falls (Acute) Pneumonia due to COVID-19 virus (Acute) COVID (Acute) Memory impairment (Acute) Disorder of palatine bone (Acute) Pharyngoesophageal dysphagia (Acute) Anemia due to blood loss, acute (Acute) Diverticula of colon (Acute) Hypertension (Chronic) Hypothyroidism (Chronic) H/O Hodgkin's lymphoma (Chronic) Medical History Colitis Hx of radiation therapy Muscle fasciculation Seborrheic keratosis Fatigue Abdominal bloating Abdominal hernia Grief reaction Lingual dysarthria Pain of left thumb Acute low back pain Dermatitis Dumping syndrome Neck mass Sebaceous cyst Weakness Lower GI bleeding GI bleed Postcholecystectomy diarrhea Acute lower GI bleeding Hypertension Hypothyroidism History of Hodgkin's disease Surgical History H/O hernia repair [place] teeth removed History of thyroidectomy Hx of colonoscopy (~05/2022) H/O total knee replacement S/P hernia repair Status post laparoscopic repair of epigastric port hernia w/ mesh. following cholecystectomy in 2014 thyroidectomy Cholecystectomy H/O surgical procedure (10/24/14) a. cholecystectomy 10/25/14 Family History Brother Heart disease Social History Smoking/Tobacco Use Status: Former Tobacco Use Smoking risk assessment performed?: Yes Alcohol Intake: current Alcohol Intake frequency: holidays/special occasions only Alcohol type: wine Drug use: Never Substance use type: does not use Housing: house Do you feel safe at home: Yes Do you feel safe in your relationship?: Yes Time Spent with Patient Time Spent with Patient: 70-84 minutes4 Time was spent: preparing to see the patient(eg.review tests), obtaining and/or reviewing separately otained hiistory, ordering medications,tests, procedures, referring, communicating with other health wound care rn, indepentently interpreting results, counseling the patient and care coordination
[2023-10-15 09:15] VITALS: BP 118/74
[2023-10-15] MEDS: Fosfomycin Tromethamine 3 GM PACKET PO (09:49)
[2023-10-15 11:24] VITALS: BP 145/84; PULSE 60; RESP 19; TEMP 37.7; O2SAT 94
--- NOTE | 2023-10-15 11:25 | PT.INTREAT ---
Date of service: 10/15/23 Time of Service: 09:22 PT Notes Visit Reasons: UTI, Vomiting, Falls Inpatient Physical Therapy Treatment Note [facility] Date: 10/15/23 PRECAUTIONS: Fall, standard, activity as tolerated. SUBJECTIVE: Reports feeling fine today OBJECTIVE: Sitting up in chair, agreeable to therapy. ? PAIN: none reported. VITALS: monitored by nursing staff. ? ? BED MOBILITY/TRANSFERS? Rolling L/R: not assessed Supine-sit: not assessed ? Sit-supine: not assessed ? Sit-stand: SBA ? Stand-sit: SBA ? Bed-Chair: SBA ? Chair-bed: SBA? Therapeutic Exercises ([id number]): Direct one-on-one instruction in therapeutic exercises to develop strength, endurance, range of motion and flexibility. Ambulation ? Assistive Device: FWW? Weight bearing: full Assist: SBA ? Distance:? 350 feet? Deviation: Gait largely unremarkable. ? Provided skilled instruction in proper exercise performance Provided skilled manual cues to facilitate proper muscle recruitment and/or form. ASSESSMENT:? Patient tolerates therapy well. Declines stairs as she is confident in her ability and is eager to go see her guest. Sister in law is waiting in patient's room upon our return. PLAN: Continue global strengthening per plan of care until patient is medically cleared for discharge. TREATMENT CODE/TIME: 25 minutes beginning at 9:22
--- NOTE | 2023-10-15 11:30 | CMDISCH_ITS ---
Date of service: 10/15/23 Time of Service: 11:30 LACE Index Scoring Tool Questions: Length of Stay (in days): 2 Was the patient admitted via the E.D.?: Yes E.D. Visits: 1 Answers: Total Score: 6 Risk of Readmission: Low Risk Care Management Discharge Plan Reason for Hospitalization: UTI, vomiting, falls Discharge Plan: Payton will return home with no new services. She will attend outpatient PT using [facility] for transport. Payton will follow up with her community providers and plan of care and transport with family. Payton's family requested home health nursing to check on Payton as she lives alone. CM explained that since Payton will attend outpatient PT and is not homebound, she would not qualify for home health services.CM did send a referral to [facility] [place] [facility] for options counseling and possible community case management as well as assistance with obtaining an appropriate Life Alert product. Patient/Family Education Needs: Review discharge instructions and limitations, discussion of self care needs including ask me three.
== END 2023-10-15 12:00 | disposition home or self-care (01) | DRG 690 ==
LOC: ER 12:33 → MS 16:02
PROVIDERS: Nurse Practitioner Acute Care; Admitting Provider Family Medicine; Emergency Provider Emergency Medicine; PCP Family Medicine; Visit Provider Family Medicine
DX: N39.0 Urinary tract infection, site not specified (principal); R29.6 Repeated falls; E89.0 Postprocedural hypothyroidism; I10 Essential (primary) hypertension; R11.10 Vomiting, unspecified; Z79.899 Other long term (current) drug therapy; D72.829 Elevated white blood cell count, unspecified; Z85.71 Personal history of Hodgkin lymphoma; Z86.16 Personal history of COVID-19; R41.3 Other amnesia; R13.14 Dysphagia, pharyngoesophageal phase; K57.30 Diverticulosis of large intestine without perforation or abscess without bleeding; Z92.3 Personal history of irradiation; Z87.891 Personal history of nicotine dependence; R05.1 Acute cough; R09.89 Other specified symptoms and signs involving the circulatory and respiratory systems; Z86.73 Personal history of transient ischemic attack (TIA), and cerebral infarction without residual deficits; F03.90 Unspecified dementia, unspecified severity, without behavioral disturbance, psychotic disturbance, mood disturbance, and anxiety; B96.1 Klebsiella pneumoniae [K. pneumoniae] as the cause of diseases classified elsewhere
CPT/HCPCS: 00123; 36415; 80048; 80053; 87077; 93005; 96365; 96366; 96375; 97110; 97162; 99285; J1650; 70450; 71045; 73620; 81003; 81015; 83735; 84484; 85025; 87086; 87186; 93010; 94760; 99223; 99233; 99239; J1941; J2405; J3490

== ENCOUNTER 2023-12-19 15:43 | Outpatient (REF) | payer MEDICARE, BC, SELFPAY ==
[2023-12-19 16:34] LABS: TSH (W/Ref FT4) 1.18 uIU/mL (0.36-3.74)
== END 2023-12-19 15:44 | disposition home or self-care (01) ==
LOC: NCHCN 15:43
PROVIDERS: PCP Family Medicine; Visit Provider Family Medicine
DX: E03.9 Hypothyroidism, unspecified (principal)
CPT/HCPCS: 84443

== ENCOUNTER 2024-01-20 09:38 | Inpatient (IN) | payer MEDICARE, BC, SELFPAY ==
[2024-01-20] VITALS (58 sets, daily range): BP systolic 95–251; BP diastolic 55–109; PULSE 55–88; RESP 18–20; TEMP 36.8–37; O2SAT 87–98
--- NOTE | 2024-01-20 09:30 | RT.EKG_ITS ---
APPROVED REPORT Exam: Resting ECG Reason for Exam: STEMI reported by EMS Patient Location: E HR:78 bpm ECG Measurements Heart Rate 78 AXIS LA 192 P 3 QRSd 81 QRS -24 QT 394 T 15 QTc 448 Conclusion Sinus rhythm...normal P axis, V-rate 60- 99
--- NOTE | 2024-01-20 09:45 | DI.RAD_ITS ---
Exam(s) XR CHEST 2V PA LATERAL EXAM: XR CHEST 2V PA LATERAL CLINICAL HISTORY: fall TECHNIQUE: 2D digital imaging was performed of the chest. Two images were obtained. PA and lateral views were obtained. COMPARISON: CR,XR XR CHEST 1V IN DI DEPT from 11/19/2022 CR XR PORTABLE CHEST AP from 10/14/2023 FINDINGS: There are low lung volumes. MEDIASTINUM: Normal. HEART: Stable cardiomegaly. PULMONARY VASCULATURE: Stable ectasia and tortuosity of the thoracic aorta. LUNGS: Clear. PLEURAL SPACE: No pleural effusion or pneumothorax. BONE:Within normal limits for the patient's age. OTHER FINDINGS:Normal. IMPRESSION: No acute pulmonary findings. DATA REPOSITORY: RADIATION DOSE DELIVERED:
--- NOTE | 2024-01-20 09:45 | DI.CT_ITS ---
Exam(s) CT HEAD CERVICAL SPINE WO EXAM: CT HEAD CERVICAL SPINE WO CLINICAL HISTORY: CVA, fall. TECHNIQUE: Imaging Protocol: Axial computed tomography images with coronal and sagittal reformatted images were created and reviewed COMPARISON: CT CT HEAD WO from 11/19/[address] HEAD WO from 10/13/2023 FINDINGS: CT Head: Ventricles and Extra axial spaces: Normal in size and morphology for the patient's age. Hemorrhage: None. Cerebral parenchyma: There are areas of decreased attenuation in the white matter consistent with chr onic microvascular ischemic disease. No evidence of an acute territorial infarct. There is an old r ight basal gangliar lacunar infarct. No mass effect is appreciated. Midline shift: None. Brainstem/Cerebellum: Normal. Calvarium: Normal. Visualized Paranasal sinuses/Mastoids: There is fluid level in the right maxillary sinus. There is m ild mucosal thickening in the visualized paranasal sinuses. The mastoid air cells are clear. Soft Tissues: There is soft tissue swelling of the posterior scalp. CT Cervical Spine: Bones: No acute fracture or subluxation. Age-appropriate degenerative changes are seen in the cervica l spine. There is straightening of the normal cervical lordosis which is likely degenerative in natu re. Soft Tissues: Extensive vascular atherosclerotic calcification is seen. Lung Apices: Clear. IMPRESSION: 1. No acute intracranial process. 2. No acute fracture or subluxation in the cervical spine. 3. Soft tissue swelling of the posterior scalp. 4. Findings were discussed with the emergency department at 10:22 a.m. on 01/20/2024. RADIATION DOSE DELIVERED: Total DLP DATA REPOSITORY: All CT scans at this facility are submitted to the National Radiology Data Registry (NRDR) Dose Index Registry (DIR) with the [employer] (A[employer]). RADIATION OPTIMIZATION: All CT scans at this facility use at least one of these dose optimization te chniques: automated exposure control; mA and/or kV adjustment per patient size (includes targeted exa ms where dose is matched to clinical indication); or iterative reconstruction.
--- NOTE | 2024-01-20 09:49 | W.ED.GENAD ---
Discharge Plan Discharge Details Chief Complaint: CVA/TIA Admit Date/Time: 01/20/24 13:30 Admit Provider: Robbi Owen Attending Provider: Robbi Owen Primary Care Provider: Gloria Fischer ED Provider: Lana Raymundo Discharge Data Discharge Date/Time-TO BE ENTERED AT DEPARTURE: 01/20/24 14:32 HPI General Date/Time Provider Initiated Documentation: 01/20/24 09:48. Limitations to Documentation: altered mental status (lethargic, baseline dementia). Information obtained by: family, EMS, RN notes reviewed and old records reviewed. History of Present Illness 78 year old F presents to the emergency department with the chief complaint of unwittnessed fall, head contusion, lethargic, described as severe, Patient started experiencing this unknown (last known well last night) and it has been constant (minimal responsiveness). No relieving factors improve symptom(s), Other factors that worsen symptoms (fell in bathroom per roommate) . Patient notes confusion and headaches; denies chest pain and fever/chills. Patient did receive the following treatments prior to arrival, none Related Data Home Medications Medication Instructions Recorded Confirmed levothyroxine 150 mcg tablet 150 mcg PO DAILY 08/19/14 01/20/24 lisinopril 10 mg tablet 10 mg PO DAILY 08/19/14 01/20/24 cholecalciferol (vitamin D3) 25 50 mcg PO DAILY 12/13/23 01/20/24 mcg (1,000 unit) tablet Allergies Allergy/AdvReac Type Severity Reaction Status Date / Time No Known Allergies Allergy Unverified 12/20/23 10:33 General Stated Complaint: CVA/TIA DAMON: 2 Review of Systems Narrative: Unable to obtain d/t mental status, acute illness Exam [facility] Head: no palpable skull fracture and normocephalic Head images: 1. area of contusion, no laceration Ears: external ears normal and TM's normal bilaterally General nose exam: external nose normal Mouth: oral mucosae normal, lip normal and tongue normal Throat: posterior oropharynx normal Eyes General: appearance normal, both eyes and all related structures Visual Horowitz: normal visual horowitz by confrontation Alignment and Position: alignment normal Periorbital: periorbital findings normal Eyelids: eyelids normal Conjunctivae: conjunctivae normal Pupils: pinpoint Neck Neck: normal visual inspection (in collar), trachea midline and supple Chest Chest: normal inspection of the chest, normal palpation of entire chest wall, no crepitus and no localized rib tenderness Resp Effort & Inspection: normal respiratory effort, able to speak in complete sentences and no respiratory distress Auscultation: clear to auscultation bilaterally, no rales, no rhonchi and no wheezes Cardio Rate: regular rate Rhythm: regular rhythm Heart Sounds: S1 normal and S2 normal GI Inspection: normal to inspection, no abdominal wall ecchymosis, no edema and non-distended Palpation: soft, not firm, no guarding, no pulsatile masses, not rigid and nontender Auscultation: normal bowel sounds Back/Spine/Pelvis Back: no CVA tenderness Cervical Spine: normal cervical lordosis and cervical ROM normal Thoracic/Lumbar Spine: thoracic and lumbar spine normal to inspection and No thoracic spinal tenderness Pelvis: no pain with anterior-posterior compression and no pain with lateral compression Skin Wounds: wounds noted (contusion to back of scalp) Neuro General: not alert, not awake, not oriented x3, gait abnormal, moves all extremities, CN's II-XI intact bilaterally, patient confused, unable to assess gait and other (lethargic, response to stimuli, one word answers) Cognition: abnormal cognition Gait: other (unable to assess) Motor: tone not normal throughout (weak throughout, able to move all extremities but not lift against gravity) Pupils: Pinpoint: right and left Extrem General: normal to inspection, capillary refill normal, no pedal edema and no calf tenderness Course Vital Signs Vital signs: Vital Signs Pulse 81 01/20/24 09:41 Respiratory Rate 20 01/20/24 09:41 Blood Pressure 251/106 H 01/20/24 09:41 Pulse Oximetry 95 01/20/24 09:41 Pulse 81 01/20/24 09:41 Respiratory Rate 20 01/20/24 09:41 Blood Pressure 251/106 H 01/20/24 09:41 Blood Pressure Position Supine 01/20/24 09:41 Pulse Oximetry 95 01/20/24 09:41 Oxygen Delivery Method Room Air 01/20/24 09:41 Oxygen Flow Rate 0 01/20/24 09:41 Medical Decision Making Patient is an acutely ill 78-year-old female brought in via EMS after presumed fall at home, last known well yesterday. Past medical history significant for amnesia, TIA, hypoparathyroid, multiple falls, dumping syndrome, GI bleed, hypertension, hypothyroid, Hodgkin's disease. Brought in via EMS after being found unconscious by neighbor. Appears the patient has vomited as there is yellow fluid in her mouth. Was noted to be hypotensive by EMS with a systolic over 200. Did not note any focal deficits. Patient remains fairly lethargic. On exam, patient appears acutely ill. Blood pressure 251/106. Other vitals within normal limits. Patient is collared by EMS. Patient is denying any pain at this point. Lungs are clear. 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 No pain with palpation of the chest, abdomen or pelvis. This is palpated to be stable. One-word answers the patient is protecting her airway at this time. Patient has pinpoint pupils. Unable to do any large motor movements such as lifting legs or arms. She has area of swelling posterior scalp. No laceration. Primary concern at this point is for Head bleed. Going for CT now, will also image the C-spine. Nursing with section is staying with the patient. Also obtain chest x-ray as I am concerned for potential aspiration given that the patient did vomit. EMS had been concern for potential STEMI, EKG was reviewed by myself as well as Dr. Tran with no ST elevation appreciated. Plan for labetalol with initial goal is a systolic less than 220, will continue with permissive hypertension until diagnosis is made. Head CT reviewed by myself, no acute bleed noted. With the pin point pupils, will give narcan although unclear if she has access to narcotics. No response to Narcan. Attempted to reach next of kin, listed as brother, number not in service. Will have care management assist. Concerned with airway, RT in department. As she is able to answer some questions, bholding off on immediate intubation. She completed colst this year, had wanted full code. Sister in law here, she is POA, along with pts nephew. She is going to call him as well. [id number] denies any narcotics. She does report that she drinks alcohol occasionally, unknown when last beverage was. CT reviewed by radiologist, no acute process. Will remove collar for comfort and blood flow. CXR reviewed by myself, concerning for wide mediastinum. She has 2+ distal pulses in all extremties Spoke with radiologist, they advised unchanged from previous. Labs are reassuring. No leukocytosis, stable H&H. Lactate within normal limits. CMP without significant abnormality. Troponin within normal limits. Will move forward with CTA. As the patient does have a widened mediastinum, will do CTA chest abdomen pelvis as well as CTA head and neck to evaluate for large ischemic stroke. Discussed this plan with family who is in agreement. Patient's blood pressure naturally downtrending with a systolic around 170, holding off on labetalol which was initially ordered. Patient continues to wake with prompting, having short one-word answers but still following small commands. Remains largely lethargic. CTA reviewed by radiologist, no acute abnormality. Her urine is concerning for possible infection with trace blood, trace leukocytes, moderate bacteria, will give Rocephin. Her [id number] does state that she has had UTIs with altered mental status historically. Certainly could account for her symptoms. Roommate now is also at bedside. He reports that it appeared that patient was changing in the bathroom when she tripped over a chair that was overturned and fell striking her head. As the patient remains weak and lethargic, will consult with hospitalist regarding admission. Concerned that she is altered associated with concussion and/or urinary tract infection. Patient does have underlying dementia which sister and roommate are able to cooperate but clearly much more lethargic and continues to be minimally responsive. Continues with the one-word answers. Her response does take less stimuli than when she first came in. Concerned this could be infection driven the patient is not able to care for herself at home. Dodd placed. Family in agreement with the plan of care. Patient wants to be full code per recent POLST form. Quality:SDOH Health Related Social Needs: No Data to Display PFSH All Active Problems (Updated 01/20/24 @ 15:27 by Jillian Wharton APRN) Discharge planning issues (Acute) On deep vein thrombosis (DVT) prophylaxis (Acute) Advanced care planning/counseling discussion (Acute) Palliative care encounter (Acute) UTI (urinary tract infection) (Acute) Pneumonia due to COVID-19 virus (Acute) COVID (Acute) Memory impairment (Acute) Disorder of palatine bone (Acute) Pharyngoesophageal dysphagia (Acute) Anemia due to blood loss, acute (Acute) Diverticula of colon (Acute) Hypertension (Chronic) Hypothyroidism (Chronic) H/O Hodgkin's lymphoma (Chronic) Medical History Amnesia Asthenia Low back pain Epidermoid cyst Senile hyperkeratosis Transient cerebral ischemia Adjustment disorder Hypoparathyroidism Multiple falls Colitis Hx of radiation therapy Muscle fasciculation Seborrheic keratosis Fatigue Abdominal bloating Abdominal hernia Grief reaction Lingual dysarthria Pain of left thumb Acute low back pain Dermatitis Dumping syndrome Neck mass Sebaceous cyst Weakness Lower GI bleeding GI bleed Postcholecystectomy diarrhea Acute lower GI bleeding Hypertension Hypothyroidism History of Hodgkin's disease Surgical History H/O hernia repair [place] teeth removed History of thyroidectomy Hx of colonoscopy (~05/2022) H/O total knee replacement S/P hernia repair Status post laparoscopic repair of epigastric port hernia w/ mesh. following cholecystectomy in 2014 thyroidectomy Cholecystectomy H/O surgical procedure (10/24/14) a. cholecystectomy 10/25/14 Family History Brother Heart disease Social History Smoking/Tobacco Use Status: Former Tobacco Use Smoking risk assessment performed?: Yes Alcohol Intake: current Alcohol Intake frequency: holidays/special occasions only Alcohol type: wine Drug use: Never Substance use type: does not use Housing: house Do you feel safe at home: Yes Do you feel safe in your relationship?: Yes
[2024-01-20 10:02] LABS: Abs Immature Grans 0.08 10^3/uL (0.0-0.06); Absolute Basophil Count 0.04 10^3/uL (0.0-0.2); Absolute Eosinophil Count 0.01 10^3/uL (0.0-0.7); Absolute Lymphocyte Count 0.28 10^3/uL (1.2-3.4); Absolute Monocyte Count 0.47 10^3/uL (0.1-0.8); Absolute Neutrophil Count 9.35 10^3/uL (1.2-6.7); Basophils % 0.4; Eosinophils % 0.1; HCT 46.2 % (36.0-46.0); Immature Grans % 0.8; Lymphocytes % 2.7; MCH 29.6 pg (27.0-33.0); MCHC 32.5 % (32.0-36.0); MCV 91 fL (80-95); MPV 9.9 fL (8.0-11.0); Monocytes % 4.6; Neutrophils % 91.4; Platelet Count 169 10^3/uL (130-400); RBC 5.07 10^6/uL (3.93-5.22); RDW 13.3 % (11.7-14.6); RDW-SD 45.1 fL; WBC 10.23 10^3/uL (4.4-10.8)
[2024-01-20 10:13] LABS: Prothrombin Time 10.3 sec (9.1-11.1)
--- NOTE | 2024-01-20 10:15 | DI.CT_ITS ---
Exam(s) CT BRAIN NECK CTA EXAM: CT BRAIN NECK CTA CLINICAL HISTORY: altered. TECHNIQUE: Imaging Protocol: Axial CT angiography was performed with multi-slice acquisition and mu lti-planar and/or 3D reconstructions. CONTRAST MATERIAL: Intravenous: Omnipaque 350 contrast volume:200 mL COMPARISON: CT CT HEAD CERVICAL SPINE WO from 01/20/2024 FINDINGS: CT Head w: Ventricles and Extra axial spaces: Normal in size and morphology for the patient's age. Hemorrhage: None. Cerebral parenchyma: There are areas of decreased attenuation in the white matter consistent with chr onic microvascular ischemic disease. There is an old right basal gangliar lacunar infarct. No acute mass effect is identified Midline shift: None. Brainstem/Cerebellum: Normal. Calvarium: Normal. Visualized Paranasal sinuses/Mastoids: Small fluid level in the right maxillary sinus. Mild mucosal thickening in the visualized paranasal sinuses. Soft Tissues: Tissue swelling of the scalp posteriorly. Enhancement: Unremarkable. CTA Neck W: Common Carotid: Right: No dissection, occlusion or significant stenosis. Atherosclerotic calcification without signi ficant stenosis. Left: No dissection, occlusion or significant stenosis. Mild atherosclerotic calcification without s ignificant stenosis. External Carotid: Right: No occlusion. Atherosclerosis with proximally 50 percent stenosis. Left: No occlusion. Marked atherosclerosis with 50-75 percent stenosis. Internal Carotid: Right: Marked atherosclerosis proximally with 80-90 percent stenosis. Left: Marked atherosclerosis with a proximally 50 percent stenosis. Vertebral Artery: Right: No dissection, occlusion or significant stenosis. Left: Atherosclerosis distally without significant stenosis. Bones: Within normal limits for the patient's age. Soft Tissues: Normal. Thyroid gland: The right thyroid gland is hypoplastic or absent. There is a 5 mm left thyroid nodule . No follow-up is recommended. CTA Brain W: Internal Carotid Arteries: No aneurysm or occlusion. There is atherosclerotic calcification without significant stenosis. Anterior Cerebral Arteries: Right: No aneurysm, occlusion or significant stenosis. Left: No aneurysm, occlusion or significant stenosis. Middle Cerebral Arteries: Right: No aneurysm, occlusion or significant stenosis. Left: No aneurysm, occlusion or significant stenosis. Posterior Cerebral Arteries: Right: No aneurysm, occlusion or significant stenosis. Left: No aneurysm, occlusion or significant stenosis. Vertebral Arteries: Right: No aneurysm, occlusion or significant stenosis. Left: No aneurysm, occlusion or significant stenosis. Basilar Artery: No aneurysm, occlusion or significant stenosis. IMPRESSION: 1. No large vessel occlusion or significant stenosis on the CT angiography of the head. 2. No acute intracranial process. 3. 80-90 percent stenosis of the proximal right internal carotid artery. 4. 50-70 percent stenosis of the left external carotid artery. 5. 50 percent stenosis of the proximal right external carotid artery in the proximal left internal ca rotid artery. RADIATION DOSE DELIVERED: Total DLP DATA REPOSITORY: All CT scans at this facility are submitted to the National Radiology Data Registry (NRDR) Dose Index Registry (DIR) with the [employer] (ACR). RADIATION OPTIMIZATION: All CT scans at this facility use at least one of these dose optimization te chniques: automated exposure control; mA and/or kV adjustment per patient size (includes targeted exa ms where dose is matched to clinical indication); or iterative reconstruction.
[2024-01-20 10:20] LABS: ALT 17 U/L (14-59); AST 21 U/L (15-37); Albumin 4.2 g/dL (3.4-5.0); Alkaline Phosphatase 78 U/L (46-116); Anion Gap 7.8 mmol/L (3-11); BUN 15 mg/dL (7-18); CO2 30.2 mmol/L (21.0-32.0); CREATININE 0.7 mg/dL (0.55-1.02); Calcium 9.2 mg/dL (8.5-10.1); Chloride 101 mmol/L (98-107); Estimated GFR 89.02 (mL/min/1.73m2); Glucose 125 mg/dL (74-106); Potassium 3.9 mmol/L (3.5-5.1); Sodium 139 mmol/L (136-145); Total Protein 7.9 g/dL (6.4-8.2); Troponin I < 50 ng/L (< or =60)
[2024-01-20] MEDS: Naloxone 0.4 MG/ML VIAL IVP (10:23)
[2024-01-20] MEDS: Ondansetron 4 MG/2 ML VIAL IVP (10:23)
--- NOTE | 2024-01-20 10:30 | DI.CT_ITS ---
Exam(s) CT THORAX ABDOMEN CTA EXAM: CT THORAX ABDOMEN CTA CLINICAL HISTORY: altered. TECHNIQUE: Imaging Protocol: Axial CT angiography was performed with multi-slice acquisition and m ulti-planar and/or 3D reconstructions. CONTRAST MATERIAL: Intravenous: Omnipaque 350 contrast volume:200 mL Oral: No COMPARISON: CT ABD PELVIS WO CONTRAST from 02/21/[address] BRAIN NECK CTA from 01/20/2024 FINDINGS: The examination is limited due to patient motion artifact. CHEST: Tracheobronchial tree: Patent where visualized. Pulmonary parenchyma: Bilateral lower lobe infiltrates which may represent atelectasis. Pneumonia ca n not be excluded. No architectural distortion. Pulmonary Arteries: No evidence of filling defect to suggest pulmonary emboli. Mediastinum and Jyoti: No dominant adenopathy or fluid collection. The esophagus is unremarkable. Visualized thyroid: The right lobe of the thyroid is absent or hypoplastic. The left lobe is heterog eneous. There does appear to be a small thyroid nodule. No follow-up is recommended. Pleura: No effusion or pneumothorax. Heart: Cardiomegaly. Coronary artery calcifications are present. No pericardial effusion. Aorta: Thoracic aorta non-dilated. No evidence of dissection. Atherosclerotic calcification is prese nt. Soft Tissues: Unremarkable. Bones: Within normal limits for the patient's age. ABDOMEN AND PELVIS: Abdomen: Celiac axis/mesenteric arteries: No evidence of occlusion or significant stenosis. Atherosclerosis a t the origin of the celiac axis but no significant stenosis. Renal Arteries: No evidence of occlusion or significant stenosis. Aorta: No evidence of occlusion or significant stenosis. No aneurysm or dissection. Atheroscleroti c calcification. Pelvis: Iliac Arteries: No evidence of occlusion or significant stenosis. Atherosclerotic calcification. Common Femoral Arteries: No evidence of occlusion or significant stenosis. Atherosclerotic calcific ation. ABDOMEN: Liver: Normal density. No measurable mass. Gallbladder and Biliary Tract: Status post cholecystectomy. The common duct measures up to 9 mm. Th is can be seen post cholecystectomy. No choledocholithiasis is seen. Pancreas: Normal density, no abnormal calcifications or inflammatory process. Spleen: Normal. Adrenals: There are bilateral adrenal nodules again seen. These likely reflect adenomas. Kidneys: Normal size, contour and axis. No radiodense stones or obstructive uropathy. Bilateral renal cysts. No follow-up is recommended. Bowel: Extensive diverticulosis without evidence of acute diverticulitis. No definite evidence of parish wel obstruction or bowel wall thickening. The stomach is incompletely distended limiting evaluation. No evidence of appendicitis. Peritoneal Cavity: No ascites, collection or mesenteric inflammatory response. No free air. Lymph Nodes: Within normal limits. Bones: Within normal limits for the patient's age. There is L5 spondylolysis and grade 1 spondylolis thesis of L5 on S1. There is a left convex thoracolumbar scoliosis. Soft Tissues: Unremarkable. PELVIS: Bladder: There is a Dodd catheter in the urinary bladder. Air is seen in the dependent portion of t he urinary bladder likely from the recent catheterization. Reproductive Organs: Unremarkable as visualized. Lymph Nodes: Within normal limits. Bones: Within normal limits for the patient's age. IMPRESSION: 1. Normal CT Angiogram of the chest, abdomen and pelvis. 2. No evidence of a pulmonary embolism or aortic dissection. 3. Bilateral basilar infiltrates in the lungs. This may represent atelectasis or pneumonia. Please correlate clinically. 4. No definite acute findings are seen in the abdomen or pelvis. Please see the above discussion for complete details. RADIATION DOSE DELIVERED: Total DLP DATA REPOSITORY: All CT scans at this facility are submitted to the National Radiology Data Registry (NRDR) Dose Index Registry (DIR) with the [employer] (ACR). RADIATION OPTIMIZATION: All CT scans at this facility use at least one of these dose optimization te chniques: automated exposure control; mA and/or kV adjustment per patient size (includes targeted exa ms where dose is matched to clinical indication); or iterative reconstruction.
[2024-01-20 10:41] LABS: Lactate 0.8 mmol/L (0.6-1.4)
[2024-01-20 11:10] LABS: TSH (W/Ref FT4) 0.25 uIU/mL (0.36-3.74)
[2024-01-20 11:11] LABS: Bilirubin Negative (Negative); Blood Trace-lysed (Negative); Clarity Cloudy (Clear); Glucose Negative (Negative); Ketones 15 mg/dL (Negative); Leukocyte Esterase Trace (Negative); Nitrite Negative (Negative); Specific Gravity 1.025 (1.005-1.025)
[2024-01-20 11:19] LABS: Bacteria Moderate HPF (Negative); C & S Indicated? Yes; Casts 0-2 Hyaline LPF (Negative); Crystals Negative HPF (Negative); Epithelial Cells Few HPF (Negative); Mucus Negative (Negative); RBC 0-2 HPF (0-2); WBC 20-50 HPF (0-5)
[2024-01-20] MEDS: Omnipaque 350 MG/ML 500 ML BTL-Imaging package 200 ML IJ (11:33)
[2024-01-20 11:34] LABS: ETHANOL BLOOD 3.1 mg/dL (<10); FREE T4 1.16 ng/dL (0.76-1.46)
[2024-01-20] MEDS: cefTRIAXone 2 GM/50 ML BAG IVPB (12:56)
[2024-01-20] MEDS: Normal Saline 1,000 ML 125 ML IV (12:56)
--- NOTE | 2024-01-20 14:58 | HPE_ITS ---
Date of service: 01/20/24 Time of Service: 13:30 Assessment and Plan Assessment and plan (1) UTI (urinary tract infection): Status: Acute Assessment and plan: -Continue Ceftriaxone -Cultures and Sensitivity pending (2) TIA (transient ischemic attack): Status: Acute Assessment and plan: Completed but remains lethargic with altered mental status that might be d/t UTI also/ ASA EC 81 mg daily Lipitor 40 mg Lipid panel Hgb A1C CTA neck results: 1. No large vessel occlusion or significant stenosis on the CT angiography of the head. 2. No acute intracranial process. 3. 80-90 percent stenosis of the proximal right internal carotid artery. 4. 50-70 percent stenosis of the left external carotid artery. 5. 50 percent stenosis of the proximal right external carotid artery in the proximal left internal carotid artery. [place] [facility] [place] (3) Multiple falls: Assessment and plan: PT (4) Hypertension: Status: Chronic Assessment and plan: Patient was on lisinopril but had stopped taking it as per chart but then reported as not taken yesterday but usually takes it. Monitor BP adjust BP meds as needed (5) Hypothyroidism: Status: Chronic Assessment and plan: Continue levothyroxine TSH 0.25 but T4 1.16 (6) On deep vein thrombosis (DVT) prophylaxis: Status: Acute Assessment and plan: lovenox (7) Discharge planning issues: Status: Acute Assessment and plan: C/M to f/u : on previous stay, the patient had insisted on going home when discharged Referral to vascular tertiary center re Neck CTA results Discussed with Dr. Owen History of Present Illness History of Present Illness Chief Complaint: UTI, hypertensive Narrative: This 78-year-old female patient with a past medical history of amnesia, TIA, hyperparathyroidism, multiple falls, dumping syndrome, GI bleed, hypertension, hypothyroidism, and Hodgkin's disease was brought to the ED at [facility] via EMS status post fall and found unconscious at home by neighbor. The patient appeared to have been vomiting as there was yellow fluid in the mouth, EMS found her systolic blood pressure to be over 200, patient remained fairly lethargic, but no neurological focal deficits were noted. On arrival to the emergency room the patient appeared to be acutely he will with a blood pressure of 251/106 correlating EMS findings. The patient was able to follow command, moves all extremities equally, denied pain to palpation of chest abdomen or pelvis, protecting her airway, giving one-word answers, but was unable to execute large motor movement such as lifting arms or legs. The patient was found to have an area of swelling in her posterior skull without laceration. Head CT was negative for bleed and showed no other acute process and as pupils were pinpointed as per exam, the ED provider elected to administer Narcan to which the patient had no response. The patient [id number] and her POA present in the ED and she denied that the patient used narcotics but reported that the patient drinks occasionally but unable to provide the date of the last drink. The ED labs were unremarkable. Urine was positive for blood leukocytes and moderate bacteria; Rocephin IV was initiated in the ED. CTA chest abdomen and pelvis showed no acute abnormalities. The hospitalist was consulted and the patient was admitted to the medical surgical floor for evaluation and management of TIA, altered mental status, elevated blood pressures, and UTI. When seen the patient denied headache, dizziness, change in vision, difficulty swallowing, shortness of breath, chest pain, nausea, vomiting, diarrhea and dysuria. The patient also denied numbness or tingling to extremities.The patient stated that she does not remember what happened. The patient had to be continuously stimulated to remain awake and answer questions. The patient's sister in law, KRISTAL, was in the room and reported that patient has been taking her lisinopril, thyroid meds and a baby aspirin. Review of Systems All systems reviewed & are unremarkable except as noted in HPI and below PFSH All Active Problems (Updated 01/20/24 @ 17:44 by Jillian Wharton APRN) TIA (transient ischemic attack) (Acute) Discharge planning issues (Acute) On deep vein thrombosis (DVT) prophylaxis (Acute) Advanced care planning/counseling discussion (Acute) Palliative care encounter (Acute) UTI (urinary tract infection) (Acute) Pneumonia due to COVID-19 virus (Acute) COVID (Acute) Memory impairment (Acute) Disorder of palatine bone (Acute) Pharyngoesophageal dysphagia (Acute) Anemia due to blood loss, acute (Acute) Diverticula of colon (Acute) Hypertension (Chronic) Hypothyroidism (Chronic) H/O Hodgkin's lymphoma (Chronic) Medical History Amnesia Asthenia Low back pain Epidermoid cyst Senile hyperkeratosis Transient cerebral ischemia Adjustment disorder Hypoparathyroidism Multiple falls Colitis Hx of radiation therapy Muscle fasciculation Seborrheic keratosis Fatigue Abdominal bloating Abdominal hernia Grief reaction Lingual dysarthria Pain of left thumb Acute low back pain Dermatitis Dumping syndrome Neck mass Sebaceous cyst Weakness Lower GI bleeding GI bleed Postcholecystectomy diarrhea Acute lower GI bleeding Hypertension Hypothyroidism History of Hodgkin's disease Surgical History H/O hernia repair [place] teeth removed History of thyroidectomy Hx of colonoscopy (~05/2022) H/O total knee replacement S/P hernia repair Status post laparoscopic repair of epigastric port hernia w/ mesh. following cholecystectomy in 2014 thyroidectomy Cholecystectomy H/O surgical procedure (10/24/14) a. cholecystectomy 10/25/14 Family History Brother Heart disease Social History Smoking/Tobacco Use Status: Former Tobacco Use Smoking risk assessment performed?: Yes Alcohol Intake: current Alcohol Intake frequency: holidays/special occasions only Alcohol type: wine Drug use: Never Substance use type: does not use Housing: house Do you feel safe at home: Yes Do you feel safe in your relationship?: Yes Meds Allergies and Home Medications Allergies Allergy/AdvReac Type Severity Reaction Status Date / Time No Known Allergies Allergy Unverified 12/20/23 10:33 Home Medications Medication Instructions Recorded Confirmed Type levothyroxine 150 mcg tablet 150 mcg PO DAILY 08/19/14 01/20/24 History lisinopril 10 mg tablet 10 mg PO DAILY 08/19/14 01/20/24 History cholecalciferol (vitamin D3) 25 50 mcg PO DAILY 12/13/23 01/20/24 History mcg (1,000 unit) tablet Exam Narrative Exam Narrative: Constitutional The patient is frail appearing, in bed comfortable, lethargic but arousable with on going light tactile stimuli to keep her awake; cooperative during the interview. The patient is without acute distress and has average body habitus/is obese/ is thin. HENMT: Occipital scalp hematoma w/o laceration, normocephalic, no lymphadenopathy. Facial structures with normal appearance Eyes: Well aligned, intact ROM Neck: Normal ROM, no meningeal signs Neuro:alert and oriented to self, and place, unable to state her complete date or age. No focal deficit, PERRLA with ambient light Chest:Chest is symmetrical and normal appearance Resp: Normal respiratory pattern, speaks in short sentences, unlabored breathing, clear lungs but faint fine crackle to RLL. Cardio: regular rhythm, S1, S2, no murmur, capillary refill<3 sec., bilateral radial and dorsalis pedis pulses are positive GI: Abdomen is not distended, soft and non tender, bowel sounds are present : no bladder distension Extremities: strength 5/5 to bilateral lower and upper extremities Psych: RASS -1, congruent mood and normal affect. Results Labs 01/20/24 09:55 01/20/24 09:55 Labs: Laboratory Results - last 24 hr 01/20/24 01/20/24 01/20/24 09:55 10:35 10:59 WBC 10.23 RBC 5.07 Hgb 15.0 Hct 46.2 H MCV 91 MCH 29.6 MCHC 32.5 RDW 13.3 Plt Count 169 MPV 9.9 Immature Gran % 0.8 Neutrophils % 91.4 Lymphocytes % 2.7 Monocytes % 4.6 Eosinophils % 0.1 Basophils % 0.4 Nucleated RBC % 0.0 Absolute Neutrophils 9.35 H Absolute Lymphocytes 0.28 L Absolute Monocytes 0.47 Absolute Eosinophils 0.01 Absolute Basophils 0.04 PT 10.3 INR 1.0 VBG Lactate 0.8 Sodium 139 Potassium 3.9 Chloride 101 Carbon Dioxide 30.2 Anion Gap 7.8 BUN 15 Creatinine 0.7 Est GFR (CKD-EPI 2020) 89.02 Glucose 125 H Calcium 9.2 Magnesium 2.0 Total Bilirubin 2.0 H AST 21 ALT 17 Alkaline Phosphatase 78 Troponin I < 50 Total Protein 7.9 Albumin 4.2 TSH 0.25 L Free T4 1.16 Urine Color Yellow Urine Clarity Cloudy Urine pH 7.0 Ur Specific [place] 1.025 Urine Protein 100 H Urine Ketones 15 H Urine Blood Trace-lysed H Urine Nitrite Negative Urine Bilirubin Negative Urine Urobilinogen 1.0 H Ur Leukocyte Esterase Trace H Urine RBC 0-2 Urine WBC 20-50 H Ur Epithelial Cells Few Urine Crystals Negative Urine Bacteria Moderate Urine Casts 0-2 Hyaline Urine Mucus Negative Ur Culture Indicated? Yes Urine Glucose Negative Ethyl Alcohol 3.1 01/20/24 11:00 WBC RBC Hgb Hct MCV MCH MCHC RDW Plt Count MPV Immature Gran % Neutrophils % Lymphocytes % Monocytes % Eosinophils % Basophils % Nucleated RBC % Absolute Neutrophils Absolute Lymphocytes Absolute Monocytes Absolute Eosinophils Absolute Basophils PT INR VBG Lactate Sodium Potassium Chloride Carbon Dioxide Anion Gap BUN Creatinine Est GFR (CKD-EPI 2020) Glucose Calcium Magnesium Total Bilirubin AST ALT Alkaline Phosphatase Troponin I Total Protein Albumin TSH Free T4 Urine Color Urine Clarity Urine pH Ur Specific [place] Urine Protein Urine Ketones Urine Blood Urine Nitrite Urine Bilirubin Urine Urobilinogen Ur Leukocyte Esterase Urine RBC Urine WBC Ur Epithelial Cells Urine Crystals Urine Bacteria Urine Casts Urine Mucus Ur Culture Indicated? Urine Glucose Ethyl Alcohol Cancelled Last Vital Signs Pulse 62 01/20/24 14:16 Resp 18 01/20/24 10:43 BP 113/63 01/20/24 14:16 Pulse Ox 93 01/20/24 14:16 Time Spent Time spent with Patient: >75 minutes Time was spent: preparing to see the patient(eg.review tests), obtaining and/or reviewing separately otained hiistory, ordering medications,tests, procedures, referring, communicating with other health childcare attendant, indepentently interpreting results, counseling the patient and care coordination
[2024-01-20] MEDS: Lactated Ringers 1,000 ML 100 ML IV (15:13)
[2024-01-20] MEDS: Enoxaparin 30 MG/0.3 ML SYR SC (15:13)
--- NOTE | 2024-01-20 16:03 | PT.INIE ---
PT Notes Visit Reasons: Urinary tract infection Physical Therapy Inpatient Initial Evaluation Date: 01/20/2024 Referring Doctor: Jillian Wharton. UNIFORMS SALES REPRESENTATIVE PT Orders: PT CONSULT: Fall safety assessment Precautions: Fall. Standard. Activity as tolerated. Assist of 2 using FWW for nursing staff for safety. Patient Profile/Admitting Diagnosis: Payton is a 78-year-old female who presented to the ED today due to a fall, vomiting, and decreased blood pressure. She is admitted for TIA/CVA work up and for management of urinary tract infection, multiple falls, and hypothyroidism. PMHX: All Active Problems (Updated 01/20/24 @ 17:44 by Jillian Wharton, CUSTOMER SERVICE SPECIALIST) TIA (transient ischemic attack) (Acute) Discharge planning issues (Acute) On deep vein thrombosis (DVT) prophylaxis (Acute) Advanced care planning/counseling discussion (Acute) Palliative care encounter (Acute) UTI (urinary tract infection) (Acute) Pneumonia due to COVID-19 virus (Acute) COVID (Acute) Memory impairment (Acute) Disorder of palatine bone (Acute) Pharyngoesophageal dysphagia (Acute) Anemia due to blood loss, acute (Acute) Diverticula of colon (Acute) Hypertension (Chronic) Hypothyroidism (Chronic) H/O Hodgkin's lymphoma (Chronic) Medical History Amnesia Asthenia Low back pain Epidermoid cyst Senile hyperkeratosis Transient cerebral ischemia Adjustment disorder Hypoparathyroidism Multiple falls Colitis Hx of radiation therapy Muscle fasciculation Seborrheic keratosis Fatigue Abdominal bloating Abdominal hernia Grief reaction Lingual dysarthria Pain of left thumb Acute low back pain Dermatitis Dumping syndrome Neck mass Sebaceous cyst Weakness Lower GI bleeding GI bleed Postcholecystectomy diarrhea Acute lower GI bleeding Hypertension Hypothyroidism History of Hodgkin's disease Surgical History H/O hernia repair [place] teeth removed History of thyroidectomy Hx of colonoscopy (~05/2022) H/O total knee replacement S/P hernia repair Status post laparoscopic repair of epigastric port hernia w/ mesh. following cholecystectomy in 2014 Thyroidectomy Cholecystectomy H/O surgical procedure (10/24/14) a. cholecystectomy 10/25/14 Social History/Home Situation: Payton lives with her significant other in a private home. Friends and family are closel by and are able to help as needed. Equipment Owned/DME: SPC, walking sticks, FWW Subjective: Denied headache, chest pain, and lightheadedness throughout. [place] unsteady and weak. Needed questions and commands repeated prior to execution. Objective: General Observation: Resting in bed. Dodd catheter in place. IV through L UE. Mental Status: Oriented as to person and purpose. Instructions needed to be repeated 2-3x as patient appeared somewhat confused and unable to focus, verbal and motor responses slow. Pain: ROM: Right Upper Extremity: Shoulder Flexion lacks the last WFL. Shoulder abduction WFL. Elbow flexion WFL. Wrist flexion WFL. Functional opening and closing of hand WFL. Left Upper Extremity: Shoulder Flexion lacks the last WFL. Shoulder abduction WFL. Elbow flexion WFL. Wrist flexion WFL. Functional opening and closing of hand WFL. Right Lower Extremity: Hip flexion WFL. Hip abduction WFL. Knee flexion WFL. Ankle dorsiflexion to neutral only. Ankle plantarflexion WFL. Left Lower Extremity: Hip flexion WFL. Hip abduction WFL. Knee flexion WFL. Ankle dorsiflexion to neutral only. Ankle plantarflexion WFL. Strength: Right Upper Extremity: Shoulder flexors 4-/5. Shoulder abductors 4-/5. Elbow flexors 4-/5. Elbow extensors 4-/5. Emanations Analysis Technician weak but functional. Left Upper Extremity: Shoulder flexors 4-/5. Shoulder abductors 4-/5. Elbow flexors 4-/5. Elbow extensors 4-/5. Emanations Analysis Technician weak but functional. Right Lower Extremity: Hip flexors 4+/5. Hip abductors 4+/5. Knee flexors 5/5. Knee extensors 4+/5. Ankle dorsiflexors 4-/5. Ankle plantarflexors 4-/5. Left Lower Extremity: Hip flexors 4+/5. Hip abductors 4+/5. Knee flexors 5/5. Knee extensors 4+/5. Ankle dorsiflexors 4-/5. Ankle plantarflexors 4-/5. Sensation: Intact as to pain and pressure in B LE. Able to feel equally on B LE with light pressure. Bed Mobility/Transfers: Moderate to maximal cues provided for definite use of hands for support, movement sequence, and adjustment of ALMA and posture to reduce fall risk Sit to stand minimal assist of 2 with FWW Stand to sit minimal assist of 2 with FWW Bed to chair minimal assist of 2 with FWW Chair to bed minimal assist of 2 with FWW Gait: Facilitated safe and correct performance of level surface ambulation inside room for 15 feet. Gait mildly shuffling, able to take bigger steps on command but then goes back into shuffling. AMBULANCE DRIVER Jeannine assisted for safety in managing IV pole and wheelchair follow. Trunk rotation limited. Steps asymmetric. Trunk rotation limited. Balance: Static Sitting: Good Dynamic Sitting: Good Static Standing: Fair Dynamic Standing: Fair Special Tests: Mobility Limitations Standardized Measure [facility] AM-PAC 6 clicks Basic Mobility Inpatient Short Form: Raw Score: 12 CMS Score: 69% deficit 30-second chair rise score: 4x 4-Stage Balance Test: Unable to hold all 4 positions for 10 seconds Rapid Alternating movement: Impaired Informed Consent/Education: Patient instructed in purpose of PT consult and plan of care. Assessment: Strength symmetric but coordination impaired. Decreased ability for verbal and motor responses, impaired safety awareness, and functional mobility decline all decrease ability of of patient to safely thrive at home. Symptom of gait instability worse today compared to when she was seen last year. Requires the assistance of two for safety currently. Significant other and support available at home inadequate due to level of care presently needed by patient. Patient presents with clinical signs and symptoms consistent with current/admitting diagnoses that have resulted to mobility limitations, gait instability, generalized weakness, and overall ADL decline as demonstrated by the following impairment level findings: 1. Decreased strength to B UE/LE major muscle groups 2. Impaired sitting/standing balance 3. Impaired activity tolerance 4. Impaired coordination Impairments are contributing to the following functional limitations: 1. Difficulty with ambulation without assistive device and physical assistance 2. Increased completion time for mobility ADL performance 3. Increased risk for falls 4. Difficulty with managing steps alone safely Patient is assessed as a 92349 moderate complexity based on the following: History: 78-year-old female with past medical history as indicated above Examination: Demonstrable impairment in strength, balance, and mobility level with underlying impairments and functional limitations as exhibited above as well as deficit score of 69% utilizing the [facility] Mobility Inpatient Short Form Presentation: Stable Decision Makin moderate complexity Plan of Care/Treatment Plan: 1-2x/day, 7 days/week x 1 week. Plan of care has been reviewed with the MICROBIOLOGICAL ANALYST providing the service under Physical Therapy direction. Initiate Physical Therapy intervention for pain management as needed, strengthening, bed mobility, transfers, gait, stairs, balance training, and use of assistive device. DISCHARGE RECOMMENDATIONS: [] Home with no services [] [] Home with services [specify] [] Home with outpatient PT services [] [X] SNF for continued rehabilitation. Patient will benefit from care home facility placement for continued skilled physical therapy services in order to progress mobility level, strength, and balance in preparation for a safe discharge to home. [] Shelter Care [] [] SNF versus LTC based on ability to participate and progress [] discharge recommendations TREATMENT CODE/TIME: 44753 x 20 minutes for 1 unit, 46238 x 17 minutes for 1 unit (16:03-16:40). Thank you for the opportunity to participate in the care of this patient. Sho Kraft PT, DPT, CLT [facility] [place], [place]
[2024-01-20 16:19] LABS: Troponin I < 50 ng/L (< or =60)
--- NOTE | 2024-01-20 17:22 | NUR.NOTE ---
Pt made no attempt to feed herself, so staff fed her dinner, which she did eat well. Nursing Note:
[2024-01-20] MEDS: Normal Saline Flush 10 ML SYR IVP (19:21)
[2024-01-20] MEDS: Atorvastatin 40 MG TAB PO (19:21)
[2024-01-20 21:14] LABS: Lab Add On Test DONE
[2024-01-20 21:30] LABS: Calculated LDL 115 mg/dL (<100); Cholesterol 233 mg/dL (<200); HDL Cholesterol 109 mg/dL (40-60); Triglyceride 47 mg/dL (<150)
[2024-01-20 21:41] LABS: Hemoglobin A1C 4.9 % (<5.7)
[2024-01-21] MEDS: Lactated Ringers 1,000 ML 100 ML IV (00:54)
[2024-01-21 02:52] VITALS: BP 118/70; PULSE 60; RESP 20; TEMP 37.7; O2SAT 92
[2024-01-21] MEDS: Levothyroxine 150 MCG TAB PO (05:24)
[2024-01-21 06:25] LABS: Abs Immature Grans 0.01 10^3/uL (0.0-0.06); Absolute Basophil Count 0.06 10^3/uL (0.0-0.2); Absolute Eosinophil Count 0.02 10^3/uL (0.0-0.7); Absolute Lymphocyte Count 0.43 10^3/uL (1.2-3.4); Absolute Monocyte Count 0.71 10^3/uL (0.1-0.8); Absolute Neutrophil Count 5.79 10^3/uL (1.2-6.7); Basophils % 0.9; Eosinophils % 0.3; HCT 38.3 % (36.0-46.0); HGB 12.6 g/dL (11.2-15.7); Immature Grans % 0.1; Lymphocytes % 6.1; MCHC 32.9 % (32.0-36.0); MCV 91 fL (80-95); MPV 10.2 fL (8.0-11.0); Monocytes % 10.1; Neutrophils % 82.5; Platelet Count 157 10^3/uL (130-400); RDW 13.4 % (11.7-14.6); RDW-SD 45.5 fL; WBC 7.02 10^3/uL (4.4-10.8)
[2024-01-21 06:31] LABS: Anion Gap 7.5 mmol/L (3-11); BUN 18 mg/dL (7-18); CO2 29.5 mmol/L (21.0-32.0); CREATININE 0.8 mg/dL (0.55-1.02); Calcium 8.8 mg/dL (8.5-10.1); Chloride 104 mmol/L (98-107); Estimated GFR 75.84 (mL/min/1.73m2); Glucose 99 mg/dL (74-106); Potassium 3.6 mmol/L (3.5-5.1); Sodium 141 mmol/L (136-145)
[2024-01-21 07:35] VITALS: BP 166/80; PULSE 57; RESP 18; TEMP 36.9; O2SAT 94
[2024-01-21] MEDS: Aspirin E.C. 81 MG TABEC PO (07:58)
[2024-01-21] MEDS: Normal Saline Flush 10 ML SYR IVP ×2 (07:59→12:59)
[2024-01-21 09:15] VITALS: BP 124/62
--- NOTE | 2024-01-21 09:45 | PT.INTREAT ---
PT Notes Visit Reasons: Urinary tract infection Inpatient Physical Therapy Treatment Note [facility] Date: 01/21/24 PRECAUTIONS: Standard OBJECTIVE: ? Therapeutic Activities (89068o[1]): Direct one-on-one instruction in dynamic activities to improve functional performance. ? BED MOBILITY/TRANSFERS? Sit-stand: CGA?x2 ? Stand-sit: CGAx2? Provided skilled cues and instruction on performance and technique throughout. Gait Training (45897y[]): Direct one-on-one instruction and skilled instruction in: [X] employing an assistive device [] modified weight-bearing status [X] movement sequencing [] turning and movement with proper form [] Provided verbal cues for equipment management and technique [X] Provided instruction in gait pattern [] Patient education regarding pacing and breathing techniques to maximize activity tolerance? GAIT? Assistive Device: FWW ? Weight bearing: Full Assist: CGAx2 ? Distance:? Small loop? Therapeutic Exercises (28325r[1]): Direct one-on-one instruction in therapeutic exercises to develop strength, endurance, range of motion and flexibility. ? Exercises ? Seated rowing x 20 Seated shoulder flexion x20 Seated Horizontal abd x 20 Seated shoulder circles x 10 Seated LAQ x 10 Seated hip abd x 20 Seated hip flexion x 20 Ankle pumps x 20 Q.S. x 10 ASSESSMENT:? Pt tolerated today's session very well will try balance exercises tomorrow if still doing well. PLAN: Cont as per PT POC TREATMENT CODE/TIME: 9:15-9:45 (30) TA TP
--- NOTE | 2024-01-21 10:09 | PDOC.CMIN ---
Date of service: 01/21/24 Time of Service: 10:09 Care Management Initial Assmt Initial Assessment REASON FOR HOSPITALIZATION:: Uti, TIA,AMS PREVIOUS FUNCTIONAL STATUS/SOCIAL/FAMILY SUPPORTS:: Payton lives in [place] in her own home. She has a tenant who rents upstairs from her and helps with food preparation. Her brother Buddy and sister in law Mariah live nearby and are also supportive. Payton uses a walking stick, and is independent at baseline. She does not have any children, however she has a nephew who lives in [place] and [facility] who is also her POA - Ascencion Lozoya . CURRENT FUNCTIONAL STATUS:: Payton was sitting up in a chair when CM met with her. She was pleasant and engaged easily with CM. Payton stated that she is feeling fine and does not remember what happened that brought her to the hospital. She appears to have had a TIA. Studies indicate that she has significant stenosis of her carotid arteries which will need outpatient follow up, per provider. ADVANCE DIRECTIVES:: none Has patient been provided with info about the portal/API?: Yes Did the patient sign up for the portal?: Yes CODE STATUS:: Full Code INSURANCE COVERAGE / FINANCIAL ISSUES:: Medicare /[facility] CURRENT HOME/COMMUNITY SERVICES/EQUIPMENT:: uses a cane PRIMARY CARE PHYSICIAN:: Gloria Fischer POTENTIAL DISCHARGE NEEDS:: follow up with PCP and plan of care PATIENT/FAMILY EDUCATION NEEDS:: Review of discharge instructions, activity, limitations, follow up plan, discuss Ask <e Three TRANSPORTATION:: via private vehicle with family PLAN:: Anticipate Payton will be discharged home with no new services. . She will follow up with her PCP and plan of care and transport with family. CM will follow and assess for discharge needs. [facility] All Active Problems (Updated 01/20/24 @ 17:44 by Jillian Wharton APRN) TIA (transient ischemic attack) (Acute) Discharge planning issues (Acute) On deep vein thrombosis (DVT) prophylaxis (Acute) Advanced care planning/counseling discussion (Acute) Palliative care encounter (Acute) UTI (urinary tract infection) (Acute) Pneumonia due to COVID-19 virus (Acute) COVID (Acute) Memory impairment (Acute) Disorder of palatine bone (Acute) Pharyngoesophageal dysphagia (Acute) Anemia due to blood loss, acute (Acute) Diverticula of colon (Acute) Hypertension (Chronic) Hypothyroidism (Chronic) H/O Hodgkin's lymphoma (Chronic) Medical History Amnesia Asthenia Low back pain Epidermoid cyst Senile hyperkeratosis Transient cerebral ischemia Adjustment disorder Hypoparathyroidism Multiple falls Colitis Hx of radiation therapy Muscle fasciculation Seborrheic keratosis Fatigue Abdominal bloating Abdominal hernia Grief reaction Lingual dysarthria Pain of left thumb Acute low back pain Dermatitis Dumping syndrome Neck mass Sebaceous cyst Weakness Lower GI bleeding GI bleed Postcholecystectomy diarrhea Acute lower GI bleeding Hypertension Hypothyroidism History of Hodgkin's disease Surgical History H/O hernia repair [place] teeth removed History of thyroidectomy Hx of colonoscopy (~05/2022) H/O total knee replacement S/P hernia repair Status post laparoscopic repair of epigastric port hernia w/ mesh. following cholecystectomy in 2014 thyroidectomy Cholecystectomy H/O surgical procedure (10/24/14) a. cholecystectomy 10/25/14 Family History Brother Heart disease Social History Smoking/Tobacco Use Status: Former Tobacco Use Smoking risk assessment performed?: Yes Alcohol Intake: current Alcohol Intake frequency: holidays/special occasions only Alcohol type: wine Drug use: Never Substance use type: does not use Housing: house Do you feel safe at home: Yes Do you feel safe in your relationship?: Yes SDOH(Care Management) Screening Will the Patient Participate in the Screening?: Unable to obtain
--- NOTE | 2024-01-21 10:11 | PGE_ITS ---
Date of Service Date of service: 01/21/24 Time of Service: 10:11 Assessment and Plan Assessment and plan (1) UTI (urinary tract infection): Status: Acute Assessment and plan: -Continue Ceftriaxone -Cultures and Sensitivity pending (2) TIA (transient ischemic attack): Status: Acute Assessment and plan: Completed but remains lethargic with altered mental status that might be d/t UTI also/ Continue ASA EC 81 mg daily and Lipitor 40 mg CBC in AM LFT added to AM labs CTA neck results: 1. No large vessel occlusion or significant stenosis on the CT angiography of the head. 2. No acute intracranial process. 3. 80-90 percent stenosis of the proximal right internal carotid artery. 4. 50-70 percent stenosis of the left external carotid artery. 5. 50 percent stenosis of the proximal right external carotid artery in the proximal left internal carotid artery. Neurovascular consultation [facility]:Discussion with Dr. Carrero included the survival at 5 years probability as an indication for surgical intervention, otherwise symptomatic treatment. Dr. Carrero agrees with Lipitor, ASA and the first antiplatelet. At this time the patient seems to have completed the TIA episode. (3) Multiple falls: Assessment and plan: PT consult in progress (4) Hypertension: Status: Chronic Assessment and plan: Patient was on lisinopril but had stopped taking it as per chart but then reported as not taken yesterday but usually takes it. Permissive hypertension for SBP 160 over the next 24-48 hours and reintroduce lisinopril as a PRN first then daily (5) Hypothyroidism: Status: Chronic Assessment and plan: -Continue levothyroxine (6) On deep vein thrombosis (DVT) prophylaxis: Status: Acute Assessment and plan: Lovenox 40 mg SC daily (7) Discharge planning issues: Status: Acute Assessment and plan: C/M to f/u : on previous stay, the patient had insisted on going home when discharged Referral to vascular tertiary center re Neck CTA results as per PCP Discussed with Dr. Owen Exam Narrative Exam Narrative: Constitutional The patient is frail appearing, in bed comfortable, lethargic but arousable with on going light tactile stimuli to keep her awake; cooperative during the interview. The patient is without acute distress and has average body habitus/is obese/ is thin. HENMT: Occipital scalp hematoma w/o laceration, normocephalic, no lymphadenopathy. Facial structures with normal appearance Eyes: Well aligned, intact ROM Neck: Normal ROM, no meningeal signs Neuro:alert and oriented to self, and place, unable to state her complete date or age. No focal deficit, PERRLA with ambient light Chest:Chest is symmetrical and normal appearance Resp: Normal respiratory pattern, speaks in short sentences, unlabored breathing, clear lungs but faint fine crackle to RLL. Cardio: regular rhythm, S1, S2, no murmur, capillary refill<3 sec., bilateral radial and dorsalis pedis pulses are positive GI: Abdomen is not distended, soft and non tender, bowel sounds are present : no bladder distension Extremities: strength 5/5 to bilateral lower and upper extremities Psych: RASS -1, congruent mood and normal affect. Objective Last Vital Signs Temp 36.9 C 01/21/24 07:35 Pulse 57 L 01/21/24 07:35 Resp 18 01/21/24 07:35 BP 124/62 01/21/24 09:15 Pulse Ox 94 01/21/24 07:35 Laboratory Results - last 24 hr 01/20/24 01/20/24 01/20/24 09:55 10:35 10:59 WBC RBC Hgb Hct MCV MCH MCHC RDW Plt Count MPV Immature Gran % Neutrophils % Lymphocytes % Monocytes % Eosinophils % Basophils % Nucleated RBC % Absolute Neutrophils Absolute Lymphocytes Absolute Monocytes Absolute Eosinophils Absolute Basophils PT 10.3 INR 1.0 VBG Lactate 0.8 Sodium 139 Potassium 3.9 Chloride 101 Carbon Dioxide 30.2 Anion Gap 7.8 BUN 15 Creatinine 0.7 Est GFR (CKD-EPI 2020) 89.02 Glucose 125 H Hemoglobin A1c 4.9 Calcium 9.2 Magnesium 2.0 Total Bilirubin 2.0 H AST 21 ALT 17 Alkaline Phosphatase 78 Troponin I < 50 Total Protein 7.9 Albumin 4.2 Triglycerides 47 Total Cholesterol 233 H LDL Cholesterol, Calc 115 H HDL Cholesterol 109 TSH 0.25 L Free T4 1.16 Urine Color Yellow Urine Clarity Cloudy Urine pH 7.0 Ur Specific [place] 1.025 Urine Protein 100 H Urine Ketones 15 H Urine Blood Trace-lysed H Urine Nitrite Negative Urine Bilirubin Negative Urine Urobilinogen 1.0 H Ur Leukocyte Esterase Trace H Urine RBC 0-2 Urine WBC 20-50 H Ur Epithelial Cells Few Urine Crystals Negative Urine Bacteria Moderate Urine Casts 0-2 Hyaline Urine Mucus Negative Ur Culture Indicated? Yes Urine Glucose Negative Ethyl Alcohol 3.1 Add-On Test Request DONE 01/20/24 01/20/24 01/21/24 11:00 15:57 05:47 WBC 7.02 RBC 4.20 Hgb 12.6 D Hct 38.3 MCV 91 MCH 30.0 MCHC 32.9 RDW 13.4 Plt Count 157 MPV 10.2 Immature Gran % 0.1 Neutrophils % 82.5 Lymphocytes % 6.1 Monocytes % 10.1 Eosinophils % 0.3 Basophils % 0.9 Nucleated RBC % 0.0 Absolute Neutrophils 5.79 Absolute Lymphocytes 0.43 L Absolute Monocytes 0.71 Absolute Eosinophils 0.02 Absolute Basophils 0.06 PT INR VBG Lactate Sodium 141 Potassium 3.6 Chloride 104 Carbon Dioxide 29.5 Anion Gap 7.5 BUN 18 Creatinine 0.8 Est GFR (CKD-EPI 2020) 75.84 Glucose 99 Hemoglobin A1c Calcium 8.8 Magnesium Total Bilirubin AST ALT Alkaline Phosphatase Troponin I < 50 Total Protein Albumin Triglycerides Total Cholesterol LDL Cholesterol, Calc HDL Cholesterol TSH Free T4 Urine Color Urine Clarity Urine pH Ur Specific [place] Urine Protein Urine Ketones Urine Blood Urine Nitrite Urine Bilirubin Urine Urobilinogen Ur Leukocyte Esterase Urine RBC Urine WBC Ur Epithelial Cells Urine Crystals Urine Bacteria Urine Casts Urine Mucus Ur Culture Indicated? Urine Glucose Ethyl Alcohol Cancelled Add-On Test Request
[2024-01-21 11:23] LABS: Lab Add On Test DONE
[2024-01-21 11:41] LABS: ALT 16 U/L (14-59); AST 13 U/L (15-37); Albumin 3.2 g/dL (3.4-5.0); Alkaline Phosphatase 57 U/L (46-116); Bilirubin, Direct 0.3 mg/dL (0.0-0.2); Bilirubin, Total 1.5 mg/dL (0.2-1.0); Total Protein 6.2 g/dL (6.4-8.2)
[2024-01-21 11:50] VITALS: BP 134/74; PULSE 63; RESP 19; TEMP 36.9; O2SAT 96
--- NOTE | 2024-01-21 12:21 | PHA.REVIEW2 ---
Pharmacy Admission Review Admission Clinical Review Admission Pharmacy Review: TIA (transient ischemic attack) (Acute) Discharge planning issues (Acute) On deep vein thrombosis (DVT) prophylaxis (Acute) UTI (urinary tract infection) (Acute) No Known Allergies Allergy (Unverified 12/20/23 10:33) Resuscitation Status Full Code Height 5 ft 5 in Weight 65.317 kg Pharmacy Admission Review Renal Dosing Renal Dosing: BUN 18 mg/dL (7-18) 01/21/24 05:47 Creatinine 0.8 mg/dL (0.55-1.02) 01/21/24 05:47 Medications needing adjustments: Reviewed (CrCl 48.58 mL/min) List of meds needing interventions: Current medications okay Anticoagulation Anticoagulation: Hgb 12.6 g/dL (11.2-15.7) D 01/21/24 05:47 Hct 38.3 % (36.0-46.0) 01/21/24 05:47 Plt Count 157 10^3/uL (130-400) 01/21/24 05:47 INR 1.0 (0.9-1.1) 01/20/24 09:55 Creatinine 0.8 mg/dL (0.55-1.02) 01/21/24 05:47 DVT Prophylaxis: Intervened Medications: Enoxaparin (40mg q24h. Order was for 30mg daily, reached out to provider who switched to 40mg) Relevant Labs Relevant Labs: Sodium 141 mmol/L (136-145) 01/21/24 05:47 Potassium 3.6 mmol/L (3.5-5.1) 01/21/24 05:47 Chloride 104 mmol/L (98-107) 01/21/24 05:47 Magnesium 2.0 mg/dL (1.8-2.4) 01/20/24 09:55 Electrolytes, C-Reactive P, ESR: Reviewed (Hgb decreased from 15 to 12.6) Cardiac Review Cardiac Review: Troponin I < 50 ng/L (< or =60) 01/20/24 15:57 BP, HR, EF%: Reviewed (HR/BP WNL) QTc Review QTc: Reviewed (448 from 01/20/24) IV to PO Switch IV Medications: Reviewed (ceftriaxone) Home Meds Home Med List reviewed: Reviewed Relevent Home Meds Not ordered & why?: Vitamin D3 Current Meds Current Medication Order Review: Reviewed Pharmacy Antibiotic Review Pharmacy Antibiotic Activity: C/S review and Reviewed, no change Comments: Patient continues on ceftriaxone 1g q24h, day 2. Urine culture growing gram negative jose.
[2024-01-21] MEDS: cefTRIAXone 1 GM/50 ML BAG IVPB (12:59)
--- NOTE | 2024-01-21 15:40 | W.PM.DS.N ---
Date of service: 01/21/24 Time of Service: 13:30 DS: Diagnosis Discharge Diagnosis (1) UTI (urinary tract infection): Status: Acute (2) TIA (transient ischemic attack): Status: Acute (3) Multiple falls: (4) Hypertension: Status: Chronic (5) Hypothyroidism: Status: Chronic Discharge Plan Disposition Patient Disposition: Home W/Home Health Services Condition: Improving Discharge Details Reason For Visit: UTI Admit Date/Time: 01/20/24 13:30 Admit Provider: Robbi Owen Attending Provider: Robbi Owen Primary Care Provider: Gloria Fischer Hospital Course Hospital Course: This 78-year-old female patient, who lives independently at home, with her history of frequent falls, transient ischemic attack, memory impairment, dementia,gastrointestinal bleeding, hypothyroidism and Hodgkin's lymphoma presented on 01/20/2024 to the emergency room at [facility] via EMS status post fall and found unconscious at home by neighbor. The patient appeared to have been vomiting as there was yellow fluid in the mouth, EMS found her systolic blood pressure to be over 200, patient was mildly lethargic, but no neurological focal deficits were noted. On arrival to the emergency room the patient appeared to be acutely with a blood pressure of 251/106 in the range of EMS findings. The patient was able to follow command, moved all extremities equally, denied pain to palpation of chest abdomen or pelvis, protecting her airway, giving one-word answers, but was unable to execute large motor movement such as lifting arms or legs. The patient was found to have an area of swelling in her posterior skull without laceration. Head CT was negative for bleed and showed no other acute process ,and as pupils were pinpointed as per exam, the ED provider ordred Narcan to which the patient had no response. The patient [id number] and her POA was present in the ED and denied that the patient used narcotics but reported that the patient drinks occasionally but was unable to provide the date of the last drink. The ED labs were unremarkable. Urine was positive for blood leukocytes and moderate bacteria; Rocephin IV was initiated in the ED. CTA chest abdomen and pelvis showed no acute abnormalities. The hospitalist was consulted and the patient was admitted to the medical surgical floor for evaluation and management of TIA, altered mental status, elevated blood pressures, and UTI. On arrival to the floor, the patient denied headache, dizziness, change in vision, difficulty swallowing, shortness of breath, chest pain, nausea, vomiting, diarrhea and dysuria. The patient also denied numbness or tingling to extremities.The patient stated that she does not remember what happened. The patient is known to have had difficulty with recall in past encounters. The patient had to be continuously stimulated to remain awake and answer questions. The patient's sister in law, KRISTAL, was in the room and reported that patient has been taking her lisinopril, thyroid meds and a baby aspirin. The neck CTA showed significant occlusions with 80-90 percent stenosis of the proximal right internal carotid artery,, 50-70 percent stenosis of the left external carotid artery, and 50 percent stenosis of the proximal right external carotid artery in the proximal left internal carotid artery. The neurovascular team at [facility], Dr. Carrero, recommended a daily aspirin, lipitor, and outpatient follow-up for surgical intervention when life expectancy is at least 5 years. This was explain to the patient who agrees to have this discussion with her PCP. The patient was seen by physical therapy and refused their recommendation for short term rehabilitation. The patient will be discharged home will home health physical therapy and nursing for medication compliance verification.Permissive hypertension was observed, blood pressure within normotensive values. The patient will resume her lisinopril in AM and will continue to take her home medicines to manage her other chronic conditions. The patient will also be on Lipitor, and aspirin EC 81 mg daily. Today, the patient is awake and appears to back to baseline and is able to sustain a conversation. As the patient returned to baseline, we most likely suspect that her UTI was the main cause of her presentation this time as in previous encounter where the patient was treated for UTI with similar initial presentation. Ceftriaxone was continued upon admission to the floor.The urine culture and sensitivity showed Gram negative rods, cefpodoxime was ordered to complete a total of 5 days of antibiotic treatment. The patient have to call her PCP on Tuesday for a follow-up appointment within [address] Lexie Way and New Rx's Prescriptions: New cefpodoxime 200 mg tablet 200 mg PO Q12H Qty: 7 0RF Rx Instructions: must administer with a meal/food atorvastatin [Lipitor] 40 mg tablet 40 mg PO QPM Qty: 30 0RF Continued lisinopril 10 MG tablet 10 mg PO DAILY levothyroxine 150 MCG tablet 150 mcg PO DAILY cholecalciferol (vitamin D3) 25 mcg (1,000 unit) tablet 50 mcg PO DAILY Patient Comments: 2 tablet by mouth once a day Discharge Instructions Stand Alone Forms: Nursing Discharge Form Referrals: Gloria Fischer [Primary Care Provider] - (Call your PCP on Tuesday for a follow-up in within 7days ) Activity:: Activity as Tolerated Equipment/Supplies:: Walker Diet:: heart Healthy Discharge Orders Discharge Orders: Discharge Order (Routine); Ordered 01/21/24 Ordered By: Jillian Wharton DS: Summary Time Spent with Patient providing and/or coordinating discharge services: Greater than 30 minutes Status at Discharge Functional status at discharge: uses cane/walker Overall status at discharge: patient is back to baseline Mental Status: mental status grossly normal Speech and Movement: speech and movement normal Mood: congruent mood Affect: normal affect Quality:SDOH Health Related Social Needs: No Data to Display Exam Narrative Exam Narrative: Constitutional The patient is in chair, moving all 4 extremities without acute distress, comfortable HENMT: Occipital scalp hematoma w/o laceration, normocephalic, no lymphadenopathy. Facial structures with normal appearance. Eyes: Well aligned, intact ROM Neck: Normal ROM, no meningeal signs Neuro:alert and oriented to self, and place,No focal neurodeficits noticed, PERRLA with ambient light Resp: Normal respiratory pattern, clear lungs Cardio:Tele sinusal rhythm w/o ectopy, S1, S2, no murmur, positive pulses to all 4 extremities GI: Abdomen is not distended, soft and non tender, bowel sounds are present : no bladder distension Extremities: strength 5/5 to bilateral lower and upper extremities Psych: RASS 0, congruent mood and normal affect. Psych Mental Status: mental status grossly normal Speech and Movement: speech and movement normal Mood: congruent mood Affect: normal affect DS: Data Vitals/I&O Vitals and I&O: Vital Signs Temperature 36.9 C 01/21/24 11:50 Temperature Source Tympanic 01/21/24 11:50 Pulse 63 01/21/24 11:50 Pulse Rhythm Regular 01/21/24 09:08 Pulse 62 01/20/24 14:16 Respiratory Rate 19 01/21/24 11:50 Respiratory Effort Normal, Non-Labored 01/21/24 09:08 Respiratory Depth Normal 01/21/24 09:08 Respiratory Pattern Normal 01/21/24 09:08 Blood Pressure 134/74 01/21/24 11:50 Blood Pressure Mean 80 01/20/24 14:16 Blood Pressure Position Supine 01/20/24 09:41 Pulse Oximetry 96 01/21/24 11:50 Oxygen Delivery Method Room Air 01/21/24 11:50 Oxygen Flow Rate 0 01/21/24 11:50 Pain Level 0 01/21/24 11:50 Comment RN Notified 01/20/24 20:16 Intake & Output 01/20/24 01/21/24 01/21/24 23:59 11:59 23:59 Intake Total 394 / 404 965 / 1965 1000 / 1965 Output Total 1350 / 1350 900 / 1200 300 / 1200 Balance -956 / -946 65 / 765 700 / 765 Weight 65.317 kg Intake: IV 194 / 204 965 / 1965 1000 / 1965 Oral 200 / 200 Output: Urine 1350 / 1350 900 / 1200 300 / 1200 Other: Urine Color Yellow Yellow Yellow Urine Appearance Clear Clear Clear Comment strong Data Completed and Pending Labs on day of discharge: Labs from last 24 hours 01/21/24 01/20/24 01/20/24 05:47 15:57 09:55 WBC 7.02 RBC 4.20 Hgb 12.6 D Hct 38.3 MCV 91 MCH 30.0 MCHC 32.9 RDW 13.4 Plt Count 157 MPV 10.2 Immature Gran % 0.1 Neutrophils % 82.5 Lymphocytes % 6.1 Monocytes % 10.1 Eosinophils % 0.3 Basophils % 0.9 Nucleated RBC % 0.0 Absolute Neutrophils 5.79 Absolute Lymphocytes 0.43 L Absolute Monocytes 0.71 Absolute Eosinophils 0.02 Absolute Basophils 0.06 Sodium 141 Potassium 3.6 Chloride 104 Carbon Dioxide 29.5 Anion Gap 7.5 BUN 18 Creatinine 0.8 Est GFR (CKD-EPI 2020) 75.84 Glucose 99 Hemoglobin A1c 4.9 Calcium 8.8 Total Bilirubin 1.5 H Conjugated Bilirubin 0.3 H AST 13 L ALT 16 Alkaline Phosphatase 57 Troponin I < 50 Total Protein 6.2 L Albumin 3.2 L Triglycerides 47 Total Cholesterol 233 H LDL Cholesterol, Calc 115 H HDL Cholesterol 109 Add-On Test Request DONE DONE Preliminary micro results at discharge 01/20/24 10:59 Urine Culture - Preliminary Urine - Reflex from Ua Gram Negative [place] PFSH All Active Problems (Updated 01/20/24 @ 17:44 by Jillian Wharton APRN) TIA (transient ischemic attack) (Acute) Discharge planning issues (Acute) On deep vein thrombosis (DVT) prophylaxis (Acute) Advanced care planning/counseling discussion (Acute) Palliative care encounter (Acute) UTI (urinary tract infection) (Acute) Pneumonia due to COVID-19 virus (Acute) COVID (Acute) Memory impairment (Acute) Disorder of palatine bone (Acute) Pharyngoesophageal dysphagia (Acute) Anemia due to blood loss, acute (Acute) Diverticula of colon (Acute) Hypertension (Chronic) Hypothyroidism (Chronic) H/O Hodgkin's lymphoma (Chronic) Medical History Amnesia Asthenia Low back pain Epidermoid cyst Senile hyperkeratosis Transient cerebral ischemia Adjustment disorder Hypoparathyroidism Multiple falls Colitis Hx of radiation therapy Muscle fasciculation Seborrheic keratosis Fatigue Abdominal bloating Abdominal hernia Grief reaction Lingual dysarthria Pain of left thumb Acute low back pain Dermatitis Dumping syndrome Neck mass Sebaceous cyst Weakness Lower GI bleeding GI bleed Postcholecystectomy diarrhea Acute lower GI bleeding Hypertension Hypothyroidism History of Hodgkin's disease Surgical History H/O hernia repair [place] teeth removed History of thyroidectomy Hx of colonoscopy (~05/2022) H/O total knee replacement S/P hernia repair Status post laparoscopic repair of epigastric port hernia w/ mesh. following cholecystectomy in 2014 thyroidectomy Cholecystectomy H/O surgical procedure (10/24/14) a. cholecystectomy 10/25/14 Family History Brother Heart disease Social History Smoking/Tobacco Use Status: Former Tobacco Use Smoking risk assessment performed?: Yes Alcohol Intake: current Alcohol Intake frequency: holidays/special occasions only Alcohol type: wine Drug use: Never Substance use type: does not use Housing: house Do you feel safe at home: Yes Do you feel safe in your relationship?: Yes Time Spent with Patient Time Spent with Patient: >85 minutes Time was spent: preparing to see the patient(eg.review tests), obtaining and/or reviewing separately otained hiistory, ordering medications,tests, procedures, referring, communicating with other health aged or disabled carer, indepentently interpreting results, counseling the patient and care coordination
[2024-01-21 15:51] VITALS: BP 162/80; PULSE 60; RESP 19; TEMP 37.1; O2SAT 94
--- NOTE | 2024-01-21 16:31 | PDOC.HHF2F_ITS ---
Home Health Referral Home Health Orders Clinical synopsis of why skilled professionals are needed: This 78-year-old female patient, who lives independently at home, with her history of frequent falls, transient ischemic attack, memory impairment, dementia,gastrointestinal bleeding, hypothyroidism and Hodgkin's lymphoma presented on 01/20/2024 to the emergency room at [facility] via EMS status post fall and found unconscious at home by neighbor.In ED with SBP> 200, On Lisinopril ( not sure if taken), UTI with GNR and on oral antibiotics at home. Newly on lipitor and ASA for significantly stenosis and narrowed carotids; medication compliance needed. PT recommending short term rehab but patient wants to go home; will have HH PT. Needs OT to evaluate functionality in home environement. Might benefit from CENTRIFUGE SEPARATOR OPERATOR to coordinate care. Medical diagnosis necessitation home health referral: This 78-year-old female patient, who lives independently at home, with her history of frequent falls, transient ischemic attack, memory impairment, dementia,gastrointestinal bleeding, hypothyroidism and Hodgkin's lymphoma presented on 01/20/2024 to the emergency room at [facility] via EMS status post fall and found unconscious at home by neighbor.In ED with SBP> 200, On Lisinopril ( not sure if taken), UTI with GNR and on oral antibiotics at home. Newly on lipitor and ASA for significantly stenosis and narrowed carotids; medication compliance needed. PT recommending short term rehab but patient wants to go home; will have HH PT. Needs OT to evaluate functionality in home environment. Might benefit from CENTRIFUGE SEPARATOR OPERATOR to coordinate care Registered Nurse: Check all that apply Instruct on new or changed medication(s)/assess compliance: Ordered Assess for exacerbation of medical condition, instruct patient/caregivers on signs and symptoms to report for early detection: Ordered Physical Therapist: Check all that apply Increase strength & endurance for safe mobility at home: Ordered To design/establish home maintenance program: Ordered Fall reduction therapy program for patient with history of frequent falls: Ordered Home safety evaluation and teaching/gait training including stair management (if applicable): Ordered Better Breathing Program: Ordered Occupational Therapist: Evaluate and treat for patient unable to perform ADL/IADL/self-care: Ordered Other: Needs OT to evaluate functionality in home environment. Leaf Coverer: Assist with community resources: Ordered Assist with intermediate care planning: Ordered Encounter Date and Reason: I certify that a FTF encounter for this patient was performed on January 21, 2024 and that such encounter was related to the primary reason the patient requires home health services. The encounter was conducted in the following manner: * By me as the certifying physician, CAR SHIFTER, PA or * By an inpatient physician, CAR SHIFTER or PA during an inpatient stay who communicated findings to me, Certification And Authentication I certify that I composed the above information based on my clinical judgment relating to this patient's medical condition and, if applicable, clinical findings communicated to me by the NPP or inpatient physician who performed the FTF encounter. Name of Provider that will be monitoring home health services: Gloria Fischer
== END 2024-01-21 17:26 | disposition home health service (06) | DRG 690 ==
LOC: ER 13:32 → MS 14:38
PROVIDERS: Nurse Practitioner Acute Care; Admitting Provider Family Medicine; Emergency Provider Physician Assistant; PCP Family Medicine; Visit Provider Family Medicine
DX: N39.0 Urinary tract infection, site not specified (principal); I65.23 Occlusion and stenosis of bilateral carotid arteries; R29.6 Repeated falls; I10 Essential (primary) hypertension; Z79.899 Other long term (current) drug therapy; R41.3 Other amnesia; R13.14 Dysphagia, pharyngoesophageal phase; K57.30 Diverticulosis of large intestine without perforation or abscess without bleeding; Z85.71 Personal history of Hodgkin lymphoma; M54.50 Low back pain, unspecified; K31.89 Other diseases of stomach and duodenum; E89.0 Postprocedural hypothyroidism; Z87.891 Personal history of nicotine dependence; Z92.3 Personal history of irradiation; E20.9 Hypoparathyroidism, unspecified; W19.XXXA Unspecified fall, initial encounter; S00.03XA Contusion of scalp, initial encounter; F03.90 Unspecified dementia, unspecified severity, without behavioral disturbance, psychotic disturbance, mood disturbance, and anxiety; B96.1 Klebsiella pneumoniae [K. pneumoniae] as the cause of diseases classified elsewhere
CPT/HCPCS: 00123; 36415; 36416; 70496; 70498; 71275; 74175; 80048; 80053; 80061; 80076; 82962; 87077; 93005; 96361; 96365; 96368; 96375; 97110; 97162; 97530; 99285; 70450; 71046; 72125; 80320; 81003; 81015; 83036; 83605; 83735; 84439; 84443; 84484; 85025; 85610; 87086; 87186; 93010; 99223; 99239; J0696; J1650; J1920; J2310; J2405

== ENCOUNTER 2024-04-07 18:27 | Observation (INO) | payer MEDICARE, BC, SELFPAY ==
[2024-04-07] VITALS (37 sets, daily range): BP systolic 106–200; BP diastolic 67–121; PULSE 61–116; RESP 17–28; TEMP 36; O2SAT 91–96
--- NOTE | 2024-04-07 18:15 | RT.EKG_ITS ---
APPROVED REPORT Exam: Resting ECG Reason for Exam: possible stroke Patient Location: E HR:106 bpm ECG Measurements Heart Rate 106 AXIS [place] 205 P 34 QRSd 86 QRS -11 QT 332 T 39 QTc 441 Conclusion Sinus tachycardia...rate> 99 Probable left atrial enlargement...P >50mS, <-0.10mV V1 Anteroseptal infarct, old...Q >40mS, V1-V2 sinus rhythm, normal axis, normal intervals, non ischemic
--- NOTE | 2024-04-07 18:30 | DI.CT_ITS ---
Exam(s) CT BRAIN NECK CTA EXAM: CT BRAIN NECK CTA CLINICAL HISTORY: ams, severe HTN, nausea. TECHNIQUE: Imaging Protocol: Axial CT angiography was performed with multi-slice acquisition and mu lti-planar and MIP reconstructions. CONTRAST MATERIAL: Intravenous: Omnipaque 350 Contrast volume:85 ml COMPARISON: CT CT THORAX ABDOMEN CTA from 01/20/2024 FINDINGS: CT Head W/O and W contrast: Ventricles and Extra axial spaces: Normal in size and morphology for the patient's age. Hemorrhage: None. Cerebral parenchyma: No evidence of acute infarct or mass. White matter changes of small vessel dise ase. Mild atrophy. Old lacunar infarction right caudate. Midline shift: None. Brainstem/Cerebellum: No acute findings.. Calvarium: Normal. Visualized Paranasal sinuses/Mastoids: Mucosal thickening left sphenoid sinus. Soft Tissues: Unremarkable. Enhancement: Normal. CTA Brain W: Internal Carotid Arteries: Petrous: Normal. Cavernous: Calcified plaque but no significant stenosis. Cerebral: Normal. Middle Cerebral Arteries: Right: No aneurysm, occlusion or significant stenosis. Left: No aneurysm, occlusion or significant stenosis. Anterior Cerebral Arteries: Right: No aneurysm, occlusion or significant stenosis. Left: No aneurysm, occlusion or significant stenosis. Posterior cerebral Arteries: Right: No aneurysm, occlusion or significant stenosis. Left: No aneurysm, occlusion or significant stenosis. Vertebral Arteries: Right: No aneurysm, occlusion or significant stenosis. Left: Dolichoectatic. Calcification but no significant stenosis. No aneurysm, occlusion or signific ant stenosis. Basilar Artery: Dolichoectasia. No aneurysm, occlusion or significant stenosis. CTA Neck W: Common Carotid: Right: No dissection, occlusion or significant stenosis. Left: No dissection, occlusion or significant stenosis. External Carotid: Right: No dissection, occlusion or significant stenosis. Left: No dissection, occlusion or significant stenosis. Internal Carotid: Right: Heavily calcified plaque at the bifurcation of proximal right internal carotid artery causing approximately 75-85 percent stenosis. No dissection, occlusion or significant stenosis. Left: Calcified plaque at the bifurcation and proximal left internal carotid artery causing approxima tely 50 percent stenosis. No dissection. Vertebral Artery: Right: No dissection, occlusion or significant stenosis. Left: Dominant. No dissection, occlusion or significant stenosis. Lung Apices: No acute findings. Bones: Degenerative changes in the cervical spine. No acute abnormality. Soft Tissues: Normal. IMPRESSION: 1. 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 No evidence of significant stenosis, aneurysm or occlusion. 2. Head CT: No acute abnormality. Mild atrophy and mild white matter changes. 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 3. CTA neck: Severe stenosis of 75 - 85 percent of the proximal right internal carotid artery. Less than 50 percent stenosis of the proximal left internal carotid artery. RADIATION DOSE DELIVERED: Total DLP DATA REPOSITORY: All CT scans at this facility are submitted to the National Radiology Data Registry (NRDR) Dose Index Registry (DIR) with the [employer] (ACR). RADIATION OPTIMIZATION: All CT scans at this facility use at least one of these dose optimization te chniques: automated exposure control; mA and/or kV adjustment per patient size (includes targeted exa ms where dose is matched to clinical indication); or iterative reconstruction.
--- NOTE | 2024-04-07 18:30 | DI.RAD_ITS ---
Exam(s) XR CHEST 2V PA LATERAL EXAM: XR CHEST 2V PA LATERALz CLINICAL HISTORY: ams htn TECHNIQUE: 2D digital imaging was performed. Two views. COMPARISON: CR XR CHEST 2V PA LATERAL from 01/20/2024 FINDINGS: The exam is quite limited by poor pulmonary inflation. Also limited by patient arm positioning. HEART: Enlarged. Aorta: Tortuous. PULMONARY VASCULATURE: Prominent. LUNGS: Bibasilar densities, atelectasis versus pneumonia. PLEURAL SPACE: No pleural effusion or pneumothorax. BONE:Unremarkable for age. Soft tissues: Unremarkable. IMPRESSION: Poor pulmonary inflation. Bibasilar densities, atelectasis versus pneumonia. DATA REPOSITORY: RADIATION DOSE DELIVERED:
[2024-04-07] MEDS: Omnipaque 350 MG/ML 100 ML BTL IJ (18:38)
[2024-04-07] MEDS: Normal Saline - Diluent 50 ML VIAL IJ (18:39)
--- NOTE | 2024-04-07 18:44 | ED.GENADUL_ITS ---
Discharge Plan Disposition Patient Disposition: Admit to [facility] Condition: Stable Discharge Details Chief Complaint: CVA/TIA Clinical Impression: Abnormality of gait, Altered mental status, Hypertension Primary Care Provider: Gloria Fischer ED Provider: Jarred Singh Home Meds and New Rx's Prescriptions: No Action aspirin [Adult Low Dose Aspirin] 81 mg tablet,delayed release (DR/EC) 81 mg PO DAILY lisinopril 10 MG tablet 10 mg PO DAILY levothyroxine 150 MCG tablet 150 mcg PO DAILY cholecalciferol (vitamin D3) 25 mcg (1,000 unit) tablet 50 mcg PO DAILY Patient Comments: 2 tablet by mouth once a day atorvastatin [Lipitor] 40 mg tablet 40 mg PO QPM Qty: 30 0RF estradiol 0.01 % (0.1 mg/gram) cream 1 applic VAGINAL nitrofurantoin monohyd/m-cryst 100 mg capsule 100 mg PO DAILY Patient Comments: TAKE ONE CAPSULE BY MOUTH EVERY MORNING HPI General Date/Time Provider Initiated Documentation: 04/07/24 18:34 . HPI Narrative: 78-year-old female history of prior TIA, Hodgkin lymphoma, presents found by caregiver to be confused upon waking up from her nap last seen normal around 3 PM. Patient disoriented feeling nauseous and was incontinent of stool. Related Data Home Medications Medication Instructions Recorded Confirmed levothyroxine 150 mcg tablet 150 mcg PO DAILY 08/19/14 04/07/24 lisinopril 10 mg tablet 10 mg PO DAILY 08/19/14 04/07/24 cholecalciferol (vitamin D3) 25 50 mcg PO DAILY 12/13/23 04/07/24 mcg (1,000 unit) tablet atorvastatin 40 mg tablet (Lipitor) 40 mg PO QPM #30 tabs 01/21/24 04/07/24 aspirin 81 mg tablet,delayed 81 mg PO DAILY 02/07/24 04/07/24 release (Adult Low Dose Aspirin) estradiol 0.01% (0.1 mg/gram) 1 applic vaginal 04/07/24 vaginal cream nitrofurantoin 100 mg PO DAILY 04/07/24 04/07/24 monohydrate/macrocrystals 100 mg capsule Previous Rx's Medication Instructions Recorded atorvastatin 40 mg tablet (Lipitor) 40 mg PO QPM #30 tabs 01/21/24 Allergies Allergy/AdvReac Type Severity Reaction Status Date / Time No Known Allergies Allergy Unverified 04/07/24 21:43 General Stated Complaint: CVA/TIA DAMON: 2 Review of Systems Narrative: Review of Systems Constitutional: negative Eyes: negative ENT: negative Cardiovascular: negative Respiratory: negative Gastrointestinal: negative : negative Musculoskeletal: negative Skin: negative Neurologic: MS Psych: negative Exam Narrative Exam Narrative: Physical Examination General: alert, awake, cooperative, resting comfortably, no acute distress HEENT: normocephalic, atraumatic; PERRL, EOM intact, conjunctiva normal; no nasal discharge; moist mucous membranes, oral and pharyngeal mucosa normal, tolerating secretions Neck: supple, trachea midline; full ROM Chest: normal to inspection Respiratory: normal respiratory effort, speaking in full sentences, clear to auscultation, no wheezing, rales or rhonchi Cardiac: Tachycardia, regular rhythm, S1S2 intact, no murmurs rubs or gallops GI: abdomen soft, non-tender, non-distended; no palpable mass or hepa tosplenomegaly Skin: no lesions, rashes or trauma appreciated Neuro: Alert to self and place, not alert to time, cranial nerves II through XII intact, 5-5 strength upper and lower extremities bilaterally, no truncal ataxia noted Extremities: Mild bilateral lower extremity edema to ankles Psych: Appropriate mood and affect Course Vital Signs Vital signs: Vital Signs Temperature 36 C L 04/07/24 18:27 Pulse 114 H 04/07/24 18:27 Blood Pressure 200/121 H 04/07/24 18:27 Temperature 36 C L 04/07/24 18:27 Temperature Source Temporal Artery Scan 04/07/24 18:27 Pulse 114 H 04/07/24 18:27 Respiratory Rate 28 H 04/07/24 18:35 Respiratory Effort Normal 04/07/24 18:37 Respiratory Depth Shallow 04/07/24 18:35 Respiratory Pattern Tachypnea 04/07/24 18:35 Blood Pressure 200/121 H 04/07/24 18:27 Medical Decision Making 78-year-old female history of TIA, Hodgkin's lymphoma, found to be altered by caregiver upon waking up from a nap last seen normal approximately 3 PM this evening, no external signs of trauma, fingerstick normal in the field, patient alert to self and place not alert to time, noted to be hypertensive and tachycardic on arrival, cranial nerves II through XII intact out of 5 strength upper and lower extremities bilaterally, no ataxia, consider hypertensive emergency versus TIA versus intracranial hemorrhage versus ischemic CVA versus metabolic derangement versus infectious process with delirium lower suspicion for meningitis versus toxicologic process versus polypharmacy versus less likely aortic pathology or ACS given no chest pain or shortness of breath will obtain stat CT CTA head neck, initiating nicardipine drip, EKG labs admission likely. Pending CT and reevaluation will likely discuss case with [facility] neurology, admission likely 21: 40 nicardipine held as patient's blood pressure corrected before administration. Patient resting comfortably asymptomatic currently. Back to baseline per caregiver. Although patient normally ambulates without assistance and is requiring assistance to ambulate to commode at bedside. Evidence of ectatic left vertebral artery on CT. Have initiated telemetry neuro consultation to determine best disposition for patient given recurrent TIA-like symptomatology and vascular anomaly on CT scan. [id number] patient was evaluated via telemetry consultation by Dr. Kaur of neurology, there is evidence the patient likely has had a recent subcortical infarct given mild right upper extremity drift and persistent gait issues, given presentation and clinical situation patient not tPA candidate nor is patient a thrombectomy candidate, recommending inpatient admission MRI optimization of medications to load with Plavix 300 and aspirin 325 today, starting tomorrow Plavix 75 mg daily aspirin 81 for a total of 21 days, will raise atorvastatin from 40 mg to 80 mg daily, recommending lipid panel, goal permissive hypertension over the first 24 hours but to keep pressures below 220/120 patient will likely need PT OT evaluation consider rehabilitation placement versus home Quality:SDOH Health Related Social Needs: No Data to Display PFSH All Active Problems (Updated 04/07/24 @ 23:20 by Jarred Singh MD) Hypertension (Chronic) Altered mental status (Acute) Abnormality of gait (Acute) Weight loss (Acute) Advanced care planning/counseling discussion (Acute) Palliative care encounter (Acute) UTI (urinary tract infection) (Acute) Pneumonia due to COVID-19 virus (Acute) COVID (Acute) Memory impairment (Acute) Disorder of palatine bone (Acute) Pharyngoesophageal dysphagia (Acute) Anemia due to blood loss, acute (Acute) Diverticula of colon (Acute) H/O Hodgkin's lymphoma (Chronic) Medical History Abdominal bloating Abdominal hernia Acute low back pain Acute lower GI bleeding Adjustment disorder Amnesia Asthenia Colitis Dermatitis Dumping syndrome Epidermoid cyst Fatigue GI bleed Grief reaction History of Hodgkin's disease Hx of radiation therapy Hypertension Hypertension Hypoparathyroidism Hypothyroidism Hypothyroidism Lingual dysarthria Low back pain Lower GI bleeding Multiple falls Muscle fasciculation Neck mass Pain of left thumb Postcholecystectomy diarrhea Sebaceous cyst Seborrheic keratosis Senile hyperkeratosis TIA (transient ischemic attack) Transient cerebral ischemia Weakness Surgical History Cholecystectomy H/O hernia repair H/O surgical procedure (10/24/14) a. cholecystectomy 10/25/14 H/O total knee replacement History of thyroidectomy Hx of colonoscopy (~05/2022) S/P hernia repair Status post laparoscopic repair of epigastric port hernia w/ mesh. following cholecystectomy in 2014 thyroidectomy [place] teeth removed Family History Brother Heart disease Social History Smoking/Tobacco Use Status: Former Tobacco Use Smoking risk assessment performed?: Yes Alcohol Intake: current Alcohol Intake frequency: holidays/special occasions only Alcohol type: wine Drug use: Never Substance use type: does not use Housing: house Do you feel safe at home: Yes Do you feel safe in your relationship?: Yes
[2024-04-07 18:50] LABS: Abs Immature Grans 0.04 10^3/uL (0.0-0.06); Absolute Basophil Count 0.01 10^3/uL (0.0-0.2); Absolute Eosinophil Count 0.01 10^3/uL (0.0-0.7); Absolute Lymphocyte Count 0.22 10^3/uL (1.2-3.4); Absolute Monocyte Count 0.57 10^3/uL (0.1-0.8); Basophils % 0.1 %; Eosinophils % 0.1 %; HCT 43.4 % (36.0-46.0); HGB 14.1 g/dL (11.2-15.7); Immature Grans % 0.3 %; Lymphocytes % 1.8 %; MCH 29.9 pg (27.0-33.0); MCHC 32.5 % (32.0-36.0); MCV 92 fL (80-95); MPV 9.7 fL (8.0-11.0); Monocytes % 4.7 %; Platelet Count 144 10^3/uL (130-400); RBC 4.71 10^6/uL (3.93-5.22); RDW 13.1 % (11.7-14.6); RDW-SD 44.2 fL; WBC 12.15 10^3/uL (4.4-10.8)
[2024-04-07 19:07] LABS: PTT Activated 24.5 sec (23.6-32.8); Prothrombin Time 10.2 sec (9.1-11.1)
[2024-04-07 19:20] LABS: ALT 14 U/L (14-59); AST 18 U/L (15-37); Albumin 4.1 g/dL (3.4-5.0); Alkaline Phosphatase 79 U/L (46-116); Anion Gap 9.4 mmol/L (3-11); BUN 21 mg/dL (7-18); Bilirubin, Total 2.6 mg/dL (0.2-1.0); CO2 26.6 mmol/L (21.0-32.0); CREATININE 0.7 mg/dL (0.55-1.02); Calcium 8.9 mg/dL (8.5-10.1); Chloride 103 mmol/L (98-107); Estimated GFR 89.02 (mL/min/1.73m2); Glucose 143 mg/dL (74-106); Magnesium 1.6 mg/dL (1.8-2.4); NT-proBNP 245 pg/mL (<300); Potassium 3.4 mmol/L (3.5-5.1); Sodium 139 mmol/L (136-145); TSH (W/Ref FT4) 0.02 uIU/mL (0.36-3.74); Total Protein 7.3 g/dL (6.4-8.2); Troponin I < 50 ng/L (< or =60)
[2024-04-07 19:21] LABS: ETHANOL BLOOD < 3.0 mg/dL (<10)
[2024-04-07 19:37] LABS: FREE T4 1.69 ng/dL (0.76-1.46)
--- NOTE | 2024-04-07 19:41 | DI.VRAD_ITS ---
PROCEDURE INFORMATION: Exam: XR Chest Exam date and time: 04/07/2024 6:56 PM Age: 78 years old Clinical indication: Other: AMS HTN TECHNIQUE: Imaging protocol: Radiologic exam of the chest. Views: 2 views. COMPARISON: 1. CT THORAX ABDOMEN CTA 01/20/2024 11:20 AM 2. CR XR CHEST 2V PA LATERAL 01/20/2024 10:08 AM FINDINGS: Limitations: Portion of thorax obscured by portions of the patient's arms on lateral view. Lungs: Shallow inspiration with low lung volumes. Slight infiltrate and/or atelectasis lung bases bilaterally. Pleural spaces: Slight blunting left costophrenic angle suggesting small left pleural effusion. Possible tiny right pleural effusion. No large or obvious pneumothorax seen. Heart/Mediastinum: Heart size appears probably stable compared to 01/20/2024. Vasculature: Atherosclerotic disease aorta. Bones/joints: Curvature, degenerative changes spine. Other findings: Evidence tiny crescent-shaped or meniscus type calcific densities over soft tissues left axilla/left lateral chest wall. IMPRESSION: Shallow inspiration with low lung volumes. Slight infiltrate and/or atelectasis lung bases bilaterally. Evidence of small pleural effusions, left greater than right. Dictated and Authenticated by: Manny Kapoor MD. Ordering:KELVIN Stern MD
--- NOTE | 2024-04-07 20:08 | DI.VRAD_ITS ---
PROCEDURE INFORMATION: Exam: CTA Head With Contrast, Arteriography Exam date and time: 04/07/2024 6:39 PM Age: 78 years old Clinical indication: Other: AMS, severe HTN, nausea TECHNIQUE: Imaging protocol: Computed tomographic angiography of the head with contrast. Exam focused on the arteries. 3D rendering (Not supervised by radiologist): MIP and/or 3D reconstructed images were created by the technologist. Contrast material: 350; Contrast volume: 100 ml; Contrast route: INTRAVENOUS (IV); COMPARISON: CT BRAIN NECK CTA 01/20/2024 11:10 AM FINDINGS: ANTERIOR CIRCULATION: Right internal carotid artery: Intracranial segment is patent with no significant stenosis. No aneurysm. Right middle cerebral artery: No occlusion or significant stenosis. No aneurysm. Calcified plaque in the carotid siphon without hemodynamically significant stenosis. Right anterior cerebral artery: No occlusion or significant stenosis. No aneurysm. Left internal carotid artery: Intracranial segment is patent with no significant stenosis. No aneurysm. Left middle cerebral artery: No occlusion or significant stenosis. No aneurysm. Left anterior cerebral artery: No occlusion or significant stenosis. No aneurysm. POSTERIOR CIRCULATION: Right vertebral artery: No occlusion or significant stenosis. No aneurysm. Left vertebral artery: No occlusion or significant stenosis. No aneurysm. Left vertebral artery is ectatic. Dolichoectatic measuring up to 5 point 6 mm. Basilar artery: No occlusion or significant stenosis. No aneurysm. Basilar artery is ectatic. Right posterior cerebral artery: No occlusion or significant stenosis. No aneurysm. Left posterior cerebral artery: No occlusion or significant stenosis. No aneurysm. Brain: Alexis-white matter differentiation is within normal limits. No mass effect or midline shift. There are moderate nonspecific confluent and patchy foci of periventricular white matter hypodensity, probably due to chronic microvascular ischemic changes. Sulci and basilar cisterns are prominent due to mild parenchymal volume loss. No extra-axial fluid collection. There is a small chronic lacunar infarct in the right caudate nucleus. Cerebral ventricles: No ventriculomegaly. Paranasal sinuses: There is mucosal thickening in the left sphenoidal sinus. Bones/joints: Unremarkable. No acute fracture. Soft tissues: Unremarkable. IMPRESSION: 1. No significant stenosis or occlusion in the arteries of the of the [id number]. 2. 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 3. No acute intracranial abnormality on non-contrast CT. 4. Moderate chronic small vessel ischemic changes. PROCEDURE INFORMATION: Exam: CTA Neck With Contrast Exam date and time: 04/07/2024 6:39 PM Age: 78 years old Clinical indication: Other: AMS, severe HTN, nausea TECHNIQUE: Imaging protocol: Computed tomographic angiography of the neck with contrast. Exam focused on the cervical segments of the vasculature. 3D rendering (Not supervised by radiologist): MIP and/or 3D reconstructed images were created by the technologist. Contrast material: 350; Contrast volume: 100 ml; Contrast route: INTRAVENOUS (IV); COMPARISON: CT BRAIN NECK CTA 01/20/2024 11:10 AM FINDINGS: Right common carotid artery: No stenosis. No dissection or occlusion. Right internal carotid artery: Heavy calcified plaque in the carotid bifurcation and the proximal right internal carotid artery with 75-85% stenosis by NASCET criteria.. No dissection or occlusion. Right external carotid artery: No occlusion or stenosis of the origin. Left common carotid artery: No stenosis. No dissection or occlusion. Left internal carotid artery: Calcified plaque in the carotid bifurcation and the proximal left internal carotid artery with 40-50% stenosis by NASCET criteria.. No dissection or occlusion. Left external carotid artery: No occlusion or stenosis of the origin. Right vertebral artery: No stenosis. No dissection or occlusion. Left vertebral artery: No stenosis. No dissection or occlusion. Left vertebral artery is dominant. Thyroid: Several sub cm nodules in the left lobe of the thyroid gland. Soft tissues: Normal. No significant soft tissue swelling. Bones/joints: No acute fracture. IMPRESSION: 1. Severe stenosis of 75-85% the right internal carotid artery due to calcified plaque. 2. 43 50% stenosis by NASCET criteria in the proximal left internal carotid artery due to calcified plaque. 3. No stenosis in the vertebral arteries in neck. REFERENCES: NASCET CRITERIA. The degree of stenosis in the cervical segment of the internal carotid artery is based on NASCET criteria. Normal is no stenosis. Mild is less than 50% stenosis. Moderate is 50-69% stenosis. Severe is 70% to 99% stenosis. Total occlusion is no detectable patent lumen. Dictated and Authenticated by: Rob Wynn MD. Ordering:KELVIN Stern MD
[2024-04-07 21:23] LABS: Bilirubin Negative (Negative); Blood Trace-intact (Negative); Clarity Clear (Clear); Glucose Negative (Negative); Ketones 15 mg/dL (Negative); Leukocyte Esterase Negative (Negative); Nitrite Negative (Negative); Urobilinogen 0.2 mg/dL (Up to 0.2)
[2024-04-07 21:31] LABS: Bacteria Negative HPF (Negative); C & S Indicated? No; Casts Negative LPF (Negative); Crystals Negative HPF (Negative); Epithelial Cells Rare HPF (Negative); Mucus Negative (Negative); RBC 0-2 HPF (0-2); WBC 0-2 HPF (0-5)
[2024-04-07 21:42] LABS: COVID-19 PCR Negative (Negative); Influenza A PCR Negative (Negative); Influenza B PCR Negative (Negative); RSV PCR Negative (Negative)
[2024-04-07 21:44] LABS: *AMPHETAMINES SCREEN URINE Negative (Negative); *BARBITURATES SCREEN URINE Negative (Negative); *BENZODIAZEPINES SCREEN URINE Negative (Negative); Cannabinoids THC Negative (Negative); Cocaine Screen,Urine Negative (Negative); METHADONE URINE SCREEN Negative (Negative); OPIATES URINE SCREEN Negative (Negative)
[2024-04-07 21:45] LABS: Source Nasopharynx
[2024-04-07 21:45] LABS: Tricyclic Antidepressants Negative (Negative)
[2024-04-07 22:40] LABS: Troponin I 119 ng/L (< or =60)
[2024-04-07] MEDS: Clopidogrel 300 MG TAB PO (23:28)
[2024-04-07] MEDS: Aspirin 325 MG TAB PO (23:28)
[2024-04-07] MEDS: Atorvastatin 40 MG TAB 80 MG PO (23:28)
[2024-04-08] VITALS (17 sets, daily range): BP systolic 113–158; BP diastolic 64–72; PULSE 56–76; RESP 16–22; TEMP 36–36.8; O2SAT 93–97
--- NOTE | 2024-04-08 00:29 | HPE_ITS ---
Date of service: 04/08/24 Time of Service: 00:29 Assessment and Plan Assessment and plan (1) TIA (transient ischemic attack): Start date: 04/07/24 Assessment and plan: This is a 78-year-old lady brought to the ED was 4 hours after she was last seen at baseline by her caregiver and was noted to have increased confusion and not at baseline. Patient appears to have a baseline dysarthric speech with a nasal tone to her speech and states that she has no problems saying what she was saying. She is not a candidate for intervention other than adding Plavix with aspirin which she is chronically on from previous CAD. 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 Teleneurologist states the patient may have had a recent subcortical infarct and recommended admission with loading dose of aspirin and Plavix treatment as well as MRI of the brain. Patient will also have echocardiogram with bubble study. If she has a baseline and stable on Plavix and aspirin the studies could be done as an outpatient rather than being in the hospital more than 24 hours. Patient is a full code. (2) Stenosis of right carotid artery greater than 50%: Status: Chronic Assessment and plan: No evidence of acute CVA over the right circulation. Continue dual platelet therapy. Long-term edition be followed up by vascular surgery. (3) Hypokalemia: Start date: 04/07/24 Status: Acute Assessment and plan: Replete and follow labs (4) Hypomagnesemia: Start date: 04/07/24 Status: Acute Assessment and plan: Replete and follow labs. (5) Hypertension: Status: Chronic Assessment and plan: Patient had markedly elevated blood pressure and tachycardia upon presentation and was to be treated with IV therapy but this was held with permissive hypertension while being evaluated for TIA. Lisinopril will be held as well. Qualifiers: Hypertension type: primary hypertension Qualified Code(s): I10 - Essential (primary) hypertension (6) Hypothyroidism: Assessment and plan: Continue outpatient supplement and check TSH. This can be adjusted as an outpatient. Qualifiers: Hypothyroidism type: acquired Qualified Code(s): E03.9 - Hypothyroidism, unspecified History of Present Illness History of Present Illness Chief Complaint: Right-sided weakness, acute confusional state and elevated blood pressure Narrative: This is a 78-year-old female patient being brought to the ED after her caregiver noticed that she was not acting at baseline and having increased confusion. She does have a history of TIA in the past and is on a baby aspirin chronically. She does have some abnormal vertebral circulation findings but CTA of the head and neck did not show occlusion of that circulation but did reveal right carotid stenosis which was moderate to severe. The patient offers no clear history of reason for coming to the ED and she was last seen at her baseline at 3 PM the day of admission and brought to the ED more than 4 hours after initiation of symptoms. Teleneurology examined the patient and noticed a slight right upper extremity drift with assessment of probable subcortical recent infarction possible, recommending loading with Plavix and aspirin with continuation of aspirin for 21 days. She will continue Plavix with aspirin daily for least 1 month may continue on single antiplatelet therapy. Neurology, Dr. Kaur did recommend further studies with MRI of the brain and echo with bubble study which will be performed as available. Patient feels that she is at baseline even though she does have a speech impediment and slight facial asymmetry with left corner of the mouth slightly droop. She moves her face normally when demanded and has no focal motor deficits by ED exam or my exam (see below). The patient denies any headache and has stated, is a poor historian and identifying exactly why she was brought to the hospital. Her child care attendant school was not available during my exam and interview. She was noted to have electrolyte abnormalities and these were being repleted with IV fluids. Her other chronic medical problems appear to be stable. She was initially hypertensive upon presentation to the ED on lisinopril chronically but this normalized prior to initiating IV treatment. Also with question of TIA, permissive hypertension is at play. She is a full code though she has had palliative care consultation in the past. Review of Systems Narrative: 13 point review of systems otherwise unrevealing or unobtainable with patient being a poor historian. PFSH All Active Problems (Updated 04/08/24 @ 00:56 by Manny Novoa) Stenosis of right carotid artery greater than 50% (Chronic) Hypomagnesemia (Acute) Hypokalemia (Acute) Hypertension (Chronic) Altered mental status (Acute) Abnormality of gait (Acute) Weight loss (Acute) Advanced care planning/counseling discussion (Acute) Palliative care encounter (Acute) UTI (urinary tract infection) (Acute) Pneumonia due to COVID-19 virus (Acute) COVID (Acute) Memory impairment (Acute) Disorder of palatine bone (Acute) Pharyngoesophageal dysphagia (Acute) Anemia due to blood loss, acute (Acute) Diverticula of colon (Acute) H/O Hodgkin's lymphoma (Chronic) Medical History TIA (transient ischemic attack) Hypothyroidism Hypertension Amnesia Asthenia Low back pain Epidermoid cyst Senile hyperkeratosis Transient cerebral ischemia Adjustment disorder Hypoparathyroidism Multiple falls Colitis Hx of radiation therapy Muscle fasciculation Seborrheic keratosis Fatigue Abdominal bloating Abdominal hernia Grief reaction Lingual dysarthria Pain of left thumb Acute low back pain Dermatitis Dumping syndrome Neck mass Sebaceous cyst Weakness Lower GI bleeding GI bleed Postcholecystectomy diarrhea Acute lower GI bleeding Hypertension Hypothyroidism History of Hodgkin's disease Surgical History H/O hernia repair [place] teeth removed History of thyroidectomy Hx of colonoscopy (~05/2022) H/O total knee replacement S/P hernia repair Status post laparoscopic repair of epigastric port hernia w/ mesh. following cholecystectomy in 2014 thyroidectomy Cholecystectomy H/O surgical procedure (10/24/14) a. cholecystectomy 10/25/14 Family History Brother Heart disease Social History Smoking/Tobacco Use Status: Former Tobacco Use Smoking risk assessment performed?: Yes Alcohol Intake: current Alcohol Intake frequency: holidays/special occasions only Alcohol type: wine Drug use: Never Substance use type: does not use Housing: house Do you feel safe at home: Yes Do you feel safe in your relationship?: Yes Meds Allergies and Home Medications Allergies Allergy/AdvReac Type Severity Reaction Status Date / Time No Known Allergies Allergy Unverified 04/07/24 21:43 Home Medications Medication Instructions Recorded Confirmed Type levothyroxine 150 mcg tablet 150 mcg PO DAILY 08/19/14 04/07/24 History lisinopril 10 mg tablet 10 mg PO DAILY 08/19/14 04/07/24 History cholecalciferol (vitamin D3) 25 50 mcg PO DAILY 12/13/23 04/07/24 History mcg (1,000 unit) tablet atorvastatin 40 mg tablet (Lipitor) 40 mg PO QPM #30 tabs 01/21/24 04/07/24 Rx aspirin 81 mg tablet,delayed 81 mg PO DAILY 02/07/24 04/07/24 History release (Adult Low Dose Aspirin) estradiol 0.01% (0.1 mg/gram) 1 applic vaginal .COMPLEX 04/07/24 04/08/24 History vaginal cream nitrofurantoin 100 mg PO DAILY 04/07/24 04/07/24 History monohydrate/macrocrystals 100 mg capsule Exam Narrative Exam Narrative: General: Patient appears appropriate for age, asymmetry of her face with left facial drooping though this normalizes when conversing with patient having nasal tone to her voice which is chronic and baseline. She denies any problems with speaking though she sounds dysphasic at times. She is alert and oriented at least to person and place. She is in no acute distress. HEENT: Normocephalic, slight left facial asymmetry as stated with normalization when patient smiles and follows commands. Coarsened facial features. Eyes with pupils equal and react to light symmetrically, extraocular movement intact and sclera anicteric. No nystagmus. Oropharynx with moist mucosa and poor dentition. Patient protrudes in the midline. Neck: Supple without JVD and no auscultated bruits specifically listening over the right carotid. Back: Kyphotic without CVA tenderness. Lungs: Clear to auscultation percussion with no focalizing rales or rhonchi. No expiratory wheeze. Breast: Exam deferred. Heart: Regular rate and rhythm with no appreciable murmur or gallop. Distant heart sounds. Abdomen: Scaphoid contour, soft and nontender to palpation no palpable hepatosplenomegaly. Genitalia/rectal: Exam deferred. Extremities: Without clubbing, cyanosis or pitting edema. Femoral pulses intact. Neuro: Cranial nerves II through XII grossly intact. No focal motor deficits with 5 out of 5 strength in upper and lower extremities. No Babinski's. Cerebellar testing was not performed. No tremor. Patient was noted to have a slight drift in the right upper extremity by teleneurology exam. Psych: Flattened affect with depressed mood. Patient is poor historian but is having no abnormal thought processes. Remote memory grossly intact with recent memory and deficit with patient not remembering events that brought to the ED. She also said that she was not thinking clearly having been awakened. Results Imaging Imaging Studies: Exam: CTA Head With Contrast, Arteriography Exam date and time: 04/07/2024 6:39 PM Age: 78 years old Clinical indication: Other: AMS, severe HTN, nausea TECHNIQUE: Imaging protocol: Computed tomographic angiography of the head with contrast. Exam focused on the arteries. 3D rendering (Not supervised by radiologist): MIP and/or 3D reconstructed images were created by the technologist. Contrast material: 350; Contrast volume: 100 ml; Contrast route: INTRAVENOUS (IV); COMPARISON: CT BRAIN NECK CTA 01/20/2024 11:10 AM FINDINGS: ANTERIOR CIRCULATION: Right internal carotid artery: Intracranial segment is patent with no significant stenosis. No aneurysm. Right middle cerebral artery: No occlusion or significant stenosis. No aneurysm. Calcified plaque in the carotid siphon without hemodynamically significant stenosis. Right anterior cerebral artery: No occlusion or significant stenosis. No aneurysm. Left internal carotid artery: Intracranial segment is patent with no significant stenosis. No aneurysm. Left middle cerebral artery: No occlusion or significant stenosis. No aneurysm. Left anterior cerebral artery: No occlusion or significant stenosis. No aneurysm. POSTERIOR CIRCULATION: Right vertebral artery: No occlusion or significant stenosis. No aneurysm. Left vertebral artery: No occlusion or significant stenosis. No aneurysm. Left vertebral artery is ectatic. Dolichoectatic measuring up to 5 point 6 mm. Basilar artery: No occlusion or significant stenosis. No aneurysm. Basilar artery is ectatic. Right posterior cerebral artery: No occlusion or significant stenosis. No aneurysm. Left posterior cerebral artery: No occlusion or significant stenosis. No aneurysm. Brain: Alexis-white matter differentiation is within normal limits. No mass effect or midline shift. There are moderate nonspecific confluent and patchy foci of periventricular white matter hypodensity, probably due to chronic microvascular ischemic changes. Sulci and basilar cisterns are prominent due to mild parenchymal volume loss. No extra-axial fluid collection. There is a small chronic lacunar infarct in the right caudate nucleus. Cerebral ventricles: No ventriculomegaly. Paranasal sinuses: There is mucosal thickening in the left sphenoidal sinus. Bones/joints: Unremarkable. No acute fracture. Soft tissues: Unremarkable. IMPRESSION: 1. No significant stenosis or occlusion in the arteries of the of the [id number]. 2. 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 3. No acute intracranial abnormality on non-contrast CT. 4. Moderate chronic small vessel ischemic changes. PROCEDURE INFORMATION: Exam: CTA Neck With Contrast Exam date and time: 04/07/2024 6:39 PM Age: 78 years old Clinical indication: Other: AMS, severe HTN, nausea TECHNIQUE: Imaging protocol: Computed tomographic angiography of the neck with contrast. Exam focused on the cervical segments of the vasculature. 3D rendering (Not supervised by radiologist): MIP and/or 3D reconstructed images were created by the technologist. Contrast material: 350; Contrast volume: 100 ml; Contrast route: INTRAVENOUS (IV); COMPARISON: CT BRAIN NECK CTA 01/20/2024 11:10 AM FINDINGS: Right common carotid artery: No stenosis. No dissection or occlusion. Right internal carotid artery: Heavy calcified plaque in the carotid bifurcation and the proximal right internal carotid artery with 75-85% stenosis by NASCET criteria.. No dissection or occlusion. Right external carotid artery: No occlusion or stenosis of the origin. Left common carotid artery: No stenosis. No dissection or occlusion. Left internal carotid artery: Calcified plaque in the carotid bifurcation and the proximal left internal carotid artery with 40-50% stenosis by NASCET criteria.. No dissection or occlusion. Left external carotid artery: No occlusion or stenosis of the origin. Right vertebral artery: No stenosis. No dissection or occlusion. Left vertebral artery: No stenosis. No dissection or occlusion. Left vertebral artery is dominant. Thyroid: Several sub cm nodules in the left lobe of the thyroid gland. Soft tissues: Normal. No significant soft tissue swelling. Bones/joints: No acute fracture. IMPRESSION: 1. Severe stenosis of 75-85% the right internal carotid artery due to calcified plaque. 2. 43 50% stenosis by NASCET criteria in the proximal left internal carotid artery due to calcified plaque. 3. No stenosis in the vertebral arteries in neck. REFERENCES: NASCET CRITERIA. The degree of stenosis in the cervical segment of the internal carotid artery is based on NASCET criteria. Normal is no stenosis. Mild is less than 50% stenosis. Moderate is 50-69% stenosis. Severe is 70% to 99% stenosis. Total occlusion is no detectable patent lumen. Exam: XR Chest Exam date and time: 04/07/2024 6:56 PM Age: 78 years old Clinical indication: Other: AMS HTN TECHNIQUE: Imaging protocol: Radiologic exam of the chest. Views: 2 views. COMPARISON: 1. CT THORAX ABDOMEN CTA 01/20/2024 11:20 AM 2. CR XR CHEST 2V PA LATERAL 01/20/2024 10:08 AM FINDINGS: Limitations: Portion of thorax obscured by portions of the patient's arms on lateral view. Lungs: Shallow inspiration with low lung volumes. Slight infiltrate and/or atelectasis lung bases bilaterally. Pleural spaces: Slight blunting left costophrenic angle suggesting small left pleural effusion. Possible tiny right pleural effusion. No large or obvious pneumothorax seen. Heart/Mediastinum: Heart size appears probably stable compared to 01/20/2024. Vasculature: Atherosclerotic disease aorta. Bones/joints: Curvature, degenerative changes spine. Other findings: Evidence tiny crescent-shaped or meniscus type calcific densities over soft tissues left axilla/left lateral chest wall. IMPRESSION: Shallow inspiration with low lung volumes. Slight infiltrate and/or atelectasis lung bases bilaterally. Evidence of small pleural effusions, left greater than right. Labs 04/08/24 05:53 04/08/24 05:53 Labs: Laboratory Results - last 24 hr 04/07/24 04/07/24 04/07/24 18:40 21:02 21:05 WBC 12.15 H RBC 4.71 Hgb 14.1 Hct 43.4 MCV 92 MCH 29.9 MCHC 32.5 RDW 13.1 Plt Count 144 MPV 9.7 Immature Gran % 0.3 Neutrophils % 93.0 Lymphocytes % 1.8 Monocytes % 4.7 Eosinophils % 0.1 Basophils % 0.1 Nucleated RBC % 0.0 Absolute Neutrophils 11.30 H Absolute Lymphocytes 0.22 L Absolute Monocytes 0.57 Absolute Eosinophils 0.01 Absolute Basophils 0.01 PT 10.2 INR 1.0 APTT 24.5 Sodium 139 Potassium 3.4 L Chloride 103 Carbon Dioxide 26.6 Anion Gap 9.4 BUN 21 H Creatinine 0.7 Est GFR (CKD-EPI 2020) 89.02 Glucose 143 H Calcium 8.9 Magnesium 1.6 L Total Bilirubin 2.6 H AST 18 ALT 14 Alkaline Phosphatase 79 Troponin I < 50 NT-Pro-B Natriuret Pep 245 Total Protein 7.3 Albumin 4.1 TSH 0.02 L Free T4 1.69 H Urine Color Yellow Urine Clarity Clear Urine pH 7.0 Ur Specific [place] 1.020 Urine Protein Negative Urine Ketones 15 H Urine Blood Trace-intact H Urine Nitrite Negative Urine Bilirubin Negative Urine Urobilinogen 0.2 Ur Leukocyte Esterase Negative Urine RBC 0-2 Urine WBC 0-2 Ur Epithelial Cells Rare Urine Crystals Negative Urine Bacteria Negative Urine Casts Negative Urine Mucus Negative Ur Culture Indicated? No Urine Glucose Negative Urine Opiates Screen Negative Urine Methadone Screen Negative Ur Barbiturates Screen Negative Ur Tricyclics Screen Negative Ur Amphetamines Screen Negative U Benzodiazepines Scrn Negative Urine Cocaine Screen Negative Ur THC Screen Negative Ethyl Alcohol < 3.0 COVID-19 Source Nasopharynx SARS-CoV-2 (PCR) Negative Influenza Type A (PCR) Negative Influenza Type B (PCR) Negative RSV (PCR) Negative 04/07/24 22:07 WBC RBC Hgb Hct MCV MCH MCHC RDW Plt Count MPV Immature Gran % Neutrophils % Lymphocytes % Monocytes % Eosinophils % Basophils % Nucleated RBC % Absolute Neutrophils Absolute Lymphocytes Absolute Monocytes Absolute Eosinophils Absolute Basophils PT INR APTT Sodium Potassium Chloride Carbon Dioxide Anion Gap BUN Creatinine Est GFR (CKD-EPI 2020) Glucose Calcium Magnesium Total Bilirubin AST ALT Alkaline Phosphatase Troponin I 119 H* NT-Pro-B Natriuret Pep Total Protein Albumin TSH Free T4 Urine Color Urine Clarity Urine pH Ur Specific [place] Urine Protein Urine Ketones Urine Blood Urine Nitrite Urine Bilirubin Urine Urobilinogen Ur Leukocyte Esterase Urine RBC Urine WBC Ur Epithelial Cells Urine Crystals Urine Bacteria Urine Casts Urine Mucus Ur Culture Indicated? Urine Glucose Urine Opiates Screen Urine Methadone Screen Ur Barbiturates Screen Ur Tricyclics Screen Ur Amphetamines Screen U Benzodiazepines Scrn Urine Cocaine Screen Ur THC Screen Ethyl Alcohol COVID-19 Source SARS-CoV-2 (PCR) Influenza Type A (PCR) Influenza Type B (PCR) RSV (PCR) Last Vital Signs Temp 36 C L 04/07/24 18:27 Pulse 70 04/07/24 22:46 Resp 23 04/07/24 22:50 BP 123/72 04/07/24 22:46 Pulse Ox 95 04/07/24 22:31 Time Spent Time spent with Patient: >75 minutes Time was spent: preparing to see the patient(eg.review tests), obtaining and/or reviewing separately otained hiistory, ordering medications,tests, procedures, referring, communicating with other health progressive care unit registered nurse, indepentently interpreting results and care coordination
[2024-04-08] MEDS: Normal Saline Flush 10 ML SYR IVP ×2 (02:28→07:55)
[2024-04-08] MEDS: Potassium Chloride 20 MEQ TABCR 40 MEQ PO (02:29)
[2024-04-08] MEDS: MAGNESIUM SULFATE 2 GM/50 ML BAG IVINF (02:29)
[2024-04-08 02:51] LABS: Troponin I 153 ng/L (< or =60)
[2024-04-08] MEDS: Levothyroxine 150 MCG TAB PO (06:04)
[2024-04-08 06:26] LABS: HCT 38.2 % (36.0-46.0); HGB 12.5 g/dL (11.2-15.7); MCHC 32.7 % (32.0-36.0); MCV 92 fL (80-95); MPV 10.3 fL (8.0-11.0); Platelet Count 147 10^3/uL (130-400); RBC 4.16 10^6/uL (3.93-5.22); RDW 13.2 % (11.7-14.6); RDW-SD 44.6 fL; WBC 12.24 10^3/uL (4.4-10.8)
[2024-04-08 06:49] LABS: Troponin I 134 ng/L (< or =60)
[2024-04-08 06:51] LABS: ALT 14 U/L (14-59); AST 12 U/L (15-37); Albumin 3.2 g/dL (3.4-5.0); Alkaline Phosphatase 58 U/L (46-116); Anion Gap 5.5 mmol/L (3-11); BUN 16 mg/dL (7-18); Bilirubin, Total 3.2 mg/dL (0.2-1.0); CO2 29.5 mmol/L (21.0-32.0); CREATININE 0.6 mg/dL (0.55-1.02); Calcium 8.7 mg/dL (8.5-10.1); Chloride 106 mmol/L (98-107); Estimated GFR 92.39 (mL/min/1.73m2); Glucose 99 mg/dL (74-106); Magnesium 2.5 mg/dL (1.8-2.4); Sodium 141 mmol/L (136-145); Total Protein 6.1 g/dL (6.4-8.2)
[2024-04-08 06:52] LABS: TSH 0.02 uIU/Ml (0.36-3.74)
[2024-04-08] MEDS: Enoxaparin 40 MG/0.4 ML SYR SC (07:55)
[2024-04-08] MEDS: Aspirin E.C. 81 MG TABEC PO (07:56)
[2024-04-08] MEDS: Cholecalciferol (Vitamin D3) 1,000 UNIT TAB 2000 UNITS PO (07:56)
[2024-04-08] MEDS: MacroBID 100 MG CAP PO (07:56)
[2024-04-08] MEDS: Clopidogrel 75 MG TAB PO (07:56)
[2024-04-08] MEDS: Lisinopril 10 MG TAB PO (07:56)
--- NOTE | 2024-04-08 10:11 | PDOC.CMIN ---
Date of service: 04/08/24 Time of Service: 10:11 Care Management Initial Assmt Initial Assessment Reason for Hospitalization: TIA Functional Status/Living Situation Patient Presentation: Payton resides in [place] in her own home. She has a tenant who rents upstairs from her and helps with food preparation. Her brother Buddy and sister in law Mariah live nearby and are also supportive. Payton uses a walking stick, and is independent at baseline. She does not have any children, however she has a nephew who lives in [place] and [facility] who is also her POA - Ascencion Lozoya . Town of Residence: [facility] Resides with: Alone Significant Other/Family: Local Employment Status: Retired Instrumental Activities of Daily Living (ADLs): Independent Advance Directives Advance Directives: Do you have an Advance Directive: Y 04/07/24 18:33 AD On File at [facility]: Y 04/07/24 18:33 Date Asked 04/07/24 04/07/24 18:33 AD Date Reviewed 04/07/24 04/07/24 18:33 COLST On File at [facility] Yes 04/07/24 18:33 COLST Date Scanned Code Status Resuscitation Status Full Code Care Team Visit Care Team Role Provider Type Gloria Fischer Primary Care Provider NON-[facility] STAFF PHYSICIAN Eladia Ovalles Other Providers REG OCCUPATIONAL THERAPIST Jodie Tan, DAIRY EQUIPMENT MECHANIC Other Providers SPEECH LANGUAGE PATHOLOGIST Sandra Aguilar, DAIRY EQUIPMENT MECHANIC Other Providers SPEECH LANGUAGE PATHOLOGIST Mabel Hernandez Other Providers SPEECH LANGUAGE PATHOLOGIST Manasa Pete, DAIRY EQUIPMENT MECHANIC Other Providers SPEECH LANGUAGE PATHOLOGIST Kirstin Regan, DAIRY EQUIPMENT MECHANIC Other Providers SPEECH LANGUAGE PATHOLOGIST Mckenzie Mendez Other Providers OTHER Jarred Singh MD Emergency Provider [facility] STAFF PHYSICIAN Manny Novoa Admit Provider NON-[facility] STAFF PHYSICIAN Attending Provider Discharge Patient/Family Education Needs: Review discharge instructions, discuss Ask Me Three Transportation: Private vehicle Plan: Payton will return home when ready, she is advocating for discharge. She will follow up with her PCP and plan of care as prescribed and transport via private vehicle with family. [facility] All Active Problems (Updated 04/08/24 @ 00:56 by Manny Novoa) Stenosis of right carotid artery greater than 50% (Chronic) Hypomagnesemia (Acute) Hypokalemia (Acute) Hypertension (Chronic) Altered mental status (Acute) Abnormality of gait (Acute) Weight loss (Acute) Advanced care planning/counseling discussion (Acute) Palliative care encounter (Acute) UTI (urinary tract infection) (Acute) Pneumonia due to COVID-19 virus (Acute) COVID (Acute) Memory impairment (Acute) Disorder of palatine bone (Acute) Pharyngoesophageal dysphagia (Acute) Anemia due to blood loss, acute (Acute) Diverticula of colon (Acute) H/O Hodgkin's lymphoma (Chronic) Medical History TIA (transient ischemic attack) Hypothyroidism Hypertension Amnesia Asthenia Low back pain Epidermoid cyst Senile hyperkeratosis Transient cerebral ischemia Adjustment disorder Hypoparathyroidism Multiple falls Colitis Hx of radiation therapy Muscle fasciculation Seborrheic keratosis Fatigue Abdominal bloating Abdominal hernia Grief reaction Lingual dysarthria Pain of left thumb Acute low back pain Dermatitis Dumping syndrome Neck mass Sebaceous cyst Weakness Lower GI bleeding GI bleed Postcholecystectomy diarrhea Acute lower GI bleeding Hypertension Hypothyroidism History of Hodgkin's disease Surgical History H/O hernia repair [place] teeth removed History of thyroidectomy Hx of colonoscopy (~05/2022) H/O total knee replacement S/P hernia repair Status post laparoscopic repair of epigastric port hernia w/ mesh. following cholecystectomy in 2014 thyroidectomy Cholecystectomy H/O surgical procedure (10/24/14) a. cholecystectomy 10/25/14 Family History Brother Heart disease Social History Smoking/Tobacco Use Status: Former Tobacco Use Smoking risk assessment performed?: Yes Alcohol Intake: current Alcohol Intake frequency: holidays/special occasions only Alcohol type: wine Drug use: Never Substance use type: does not use Housing: house Do you feel safe at home: Yes Do you feel safe in your relationship?: Yes SDOH(Care Management) Screening Will the Patient Participate in the Screening?: Yes Do you worry about having a steady place to live?: yes Problems where you live: other In the past 12 months, have you had to go without electric, gas, oil or water in your home?: no Have you or anyone in your house had to go without enough food to eat?: no Has lack of transportation kept you from medical appointments or from doing things needed for daily living?: no Has anyone in your support network made you feel unsafe for any reason?: no Health Related Social Needs Health related social needs: housing instability, housed, with risk of homelessness(Z59.811)
--- NOTE | 2024-04-08 10:21 | IN_ITS ---
PT Notes Visit Reasons: TIA (cardiology) Physical Therapy Inpatient Initial Evaluation Date: 04/08/24 Referring Doctor: Manny Novoa MD PT Orders: PT CONSULT: Limited Ability Precautions: Fall. Standard. Activity as tolerated. Patient Profile/Admitting Diagnosis: Payton is 78 yo female that presented to the ER on 04/07/24 for altered mental status. She has been seen at her baseline about 4 hours prior. Concern for TIA and was admitted for further cardiac and TIA workup. PMHX: See EMR Social History/Home Situation: Lives alone with 3 JORJE. Has tenant that lives upstairs. Ambulates with SPC. Equipment Owned/DME: Cane Subjective: Cleared by nursing to see patient and patient is agreeable to PT. Patient is sitting in recliner at time of consult and connected to telemetry. Objective: General Observation: Some difficulty in understanding her speech Mental Status: A&O x3 Pain: None ROM: Right Upper Extremity: Shoulder Flexion WFL. Shoulder abduction WFL. Elbow flexion WFL. Wrist flexion WFL. Opening and closing of hand WFL. Left Upper Extremity: Shoulder Flexion WFL. Shoulder abduction WFL. Elbow flexion WFL. Wrist flexion WFL. Opening and closing of hand WFL. Right Lower Extremity: Hip flexion WFL. Hip abduction WFL. Knee flexion WFL. Ankle dorsiflexion WFL. Ankle plantarflexion WFL. Left Lower Extremity: Hip flexion WFL. Hip abduction WFL. Knee flexion WFL. Ankle dorsiflexion WFL. Ankle plantarflexion WFL. Strength: Right Upper Extremity: Shoulder flexors 5/5. Shoulder abductors 5/5. Elbow flexors 5/5. Elbow extensors 5/5. [employer] strong. Left Upper Extremity: Shoulder flexors 5/5. Shoulder abductors 5/5. Elbow flexors 5/5. Elbow extensors 5/5. [employer] strong. Right Lower Extremity: Hip flexors 5/5. Knee flexors 5/5. Knee extensors 5/5. Ankle dorsiflexors 5/5. Left Lower Extremity: Hip flexors 5/5. Knee flexors 5/5. Knee extensors 5/5. Ankle dorsiflexors 5/5. Sensation: Intact as to pain and pressure on bilateral lower extremities. Bed Mobility/Transfers: Supine to sit: Independent Sit to supine: Independent Sit to stand: Independent Stand to sit: Independent Gait: Ambulated 350ft with single point cane, some time holding cane and no actual use of. Supervision. Does have some unsteadiness, but is still safe. Stairs: Ascended and descended 2- 6 and 3- 4 steps with bilateral rails, independently Balance: Static Sitting: Normal Dynamic Sitting: Normal Static Standing: Good Dynamic Standing: Poor Therapeutic Activity (71278) dynamic movement and functional strengthening to improve physical performance: 15 minutes Ambulation with and without cane Toileting Special Tests: Mobility Limitations Standardized Measure [facility] AM-PAC 6 clicks Basic Mobility Inpatient Short Form: Raw Score: 24 CMS Score: 0% Informed Consent/Education: Patient instructed in purpose of PT consult and plan of care. Assessment: Patient appears to be at baseline overall. She reports feeling a lot better than yesterday. Good overall strength. Her dynamic balance is unsteady. Ambulation with cane provides support. She can walk without cane, but benefits from the stability. Patient does not need acute care PT services at this time and is safe to return home when medically cleared. Patient presents with clinical signs and symptoms consistent with current/admitting diagnoses that have resulted to mobility limitations, gait instability, generalized weakness, and impairment of motor control as demonstrated by the following impairment level findings: 1. Impaired dynamic standing balance Impairments are contributing to the following functional limitations: 1. Increased fall risk Patient is assessed as a Low complexity based on the following: History: 78 year old female with impairment level findings, functional limitations, and past medical history as indicated above Examination: Demonstrable impairment in strength, balance, and mobility level with underlying impairments and functional limitations as documented above Presentation: Stable Decision Making: Low complexity Discharge Plan DISCHARGE RECOMMENDATIONS: Home with no services TREATMENT CODE/TIME: 9:54-10:20 (26 minutes), [id number] Thank you for the opportunity to participate in the care of this patient. Radha Valderrama, PT, DPT, [facility] [place], [place]
--- NOTE | 2024-04-08 14:09 | DSE_ITS ---
Date of service: 04/08/24 Time of Service: 14:10 DS: Diagnosis Discharge Diagnosis (1) TIA (transient ischemic attack): (2) Stenosis of right carotid artery greater than 50%: Status: Chronic (3) Hypokalemia: Status: Acute (4) Hypomagnesemia: Status: Acute (5) Hypertension: Status: Chronic (6) Hypothyroidism: Discharge Plan Disposition Patient Disposition: Home Condition: Good Discharge Details Reason For Visit: TIA Admit Date/Time: 04/08/24 00:40 Admit Provider: Manny Novoa Attending Provider: Manny Novoa Primary Care Provider: Aaliyah,[place] [facility] Hospital Course: 78 yo F with history of TIA in 2022, known carotid stenosis, chronic dysarthria and cognitive impairment, and admission in January 2024 for mental status changes attributed to UTI who presented 04/08/24 with increased confusion and gait disturabance. She was evaluated by Teleneurology who noted slight RUE drift recommended adding clopidogrel for 21 days. MRI and echocardiogram with bubble study were also recommended. She was admitted for monitoring and telemetry. Her troponins were mildly elevated but stable. She had no chest pain or EKG changes. It was recommended she increase the atorvastatin to 80mg to maximize stroke and WA prevention. Her last LDL was >110, this was not repeated. Her TSH was again low with high free T4. Her dose of levothyroxine was reduced from 150mcg to 137mcg with recommendation to follow up with PCP. She was at her baseline by the second day of admission and feeling well. The patient and her caregiver requested strongly to discharge and complete the evaluation as an outpatient. MRI and echocardiogram were ordered as outpatient. Repeat slot attendant may also be considered. There was no atrial fibrillation or other events while she was here. Home Meds and New Rx's Prescriptions: New clopidogrel 75 mg Tablet 75 mg PO DAILY Qty: 20 0RF atorvastatin 80 mg tablet 80 mg PO QPM Qty: 90 3RF levothyroxine 137 mcg capsule 137 mcg PO DAILY Qty: 90 0RF Rx Instructions: stop 150mcg, lower dose Continued aspirin [Adult Low Dose Aspirin] 81 mg tablet,delayed release (DR/EC) 81 mg PO DAILY lisinopril 10 MG tablet 10 mg PO DAILY cholecalciferol (vitamin D3) 25 mcg (1,000 unit) tablet 50 mcg PO DAILY Patient Comments: 2 tablet by mouth once a day estradiol 0.01 % (0.1 mg/gram) cream 1 applic VAGINAL .COMPLEX Patient Comments: Pt uncertain about medication instructions at this time Rx Instructions: 1 applic vaginally unknown frequency; nitrofurantoin monohyd/m-cryst 100 mg capsule 100 mg PO DAILY Patient Comments: TAKE ONE CAPSULE BY MOUTH EVERY MORNING Discontinued levothyroxine 150 MCG tablet 150 mcg PO DAILY atorvastatin [Lipitor] 40 mg tablet 40 mg PO QPM Qty: 30 0RF Discharge Instructions Instructions: Transient Ischemic Attack (DC) Additional Instructions: Take the clopidogrel for the next 20 days. This helps prevent stroke. Take the full 80mg of atorvastatin (you can take 2 of the 40mg dose). This reduces risk of stroke and heart attack Your thyroid dose is too high. Take the lower dose of 137mcg. This should be retested in 6 weeks. You need an MRI and echocardiogram as soon as possible this week. These were ordered for here at [facility]. Call the diagnostic imaging department on Tuesday to make sure this is scheduled. Stand Alone Forms: Nursing Discharge Form Referrals: Gloria Fischer [Primary Care Provider] - (please follow up with your pcp in the next 7 days ) Activity:: Activity as Tolerated Equipment/Supplies:: No Equipment Needed Diet:: As Tolerated Discharge Orders Discharge Orders: Discharge Order (Routine); Ordered 04/08/24 Ordered By: Adrian Gagnon Other Ambulatory Orders: US echocardiogram w bubbles (Routine) Timeframe: 1 Week Location: None Selected Ordered By: Adrian Gagnon MR brain wo (Routine) Timeframe: 5 Days Facility: [facility] - Location: DIAGNOSTIC IMAGING Ordered By: Adrian Gagnon Discharge Data Discharge Date/Time-TO BE ENTERED AT DEPARTURE: 04/08/24 15:01 DS: Summary Time Spent with Patient providing and/or coordinating discharge services: Greater than 30 minutes Status at Discharge Functional status at discharge: independent ambulation Overall status at discharge: patient is back to baseline Mental Status: mental status grossly normal Speech and Movement: speech and movement normal Mood: congruent mood Affect: normal affect Quality:SDOH Health Related Social Needs: Health related social needs risk of homeless Exam Narrative Exam Narrative: General: Patient appears appropriate for age, comfortable, no acute distress. HEENT: Normocephalic, slight left facial asymmetry as stated with normalization when patient smiles and follows commands. Eyes with pupils equal and react to light symmetrically, extraocular movement intact and sclera anicteric. Lungs: Clear to auscultation percussion with no focalizing rales or rhonchi. No expiratory wheeze. Heart: Regular rate and rhythm, 1/6 systolic murmur, no rubs or gallops Extremities: Without clubbing, cyanosis or pitting edema. Femoral pulses intact. Neuro: Cranial nerves II through XII grossly intact other than above. No focal motor deficits with 5 out of 5 strength in upper and lower extremities. Normal coordination. No tremor. I did not notice pronator drift. Psych: Bright affect. poor historian but no abnormal thought processes. Psych Mental Status: mental status grossly normal Speech and Movement: speech and movement normal Mood: congruent mood Affect: normal affect DS: Data Vitals/I&O Vitals and I&O: Vital Signs Temperature 36.8 C 04/08/24 11:13 Temperature Source Tympanic 04/08/24 11:13 Pulse 70 04/08/24 11:13 Pulse Rhythm Regular 04/08/24 01:29 Pulse 58 L 04/08/24 01:01 Respiratory Rate 17 04/08/24 11:13 Respiratory Effort Normal, Non-Labored 04/08/24 01:29 Respiratory Depth Normal 04/08/24 01:29 Respiratory Pattern Normal 04/08/24 01:29 Blood Pressure 116/66 04/08/24 11:13 Blood Pressure Mean 89 04/08/24 01:01 Pulse Oximetry 97 04/08/24 11:13 Oxygen Delivery Method Room Air 04/08/24 11:13 Oxygen Flow Rate 0 04/08/24 11:13 Pain Level 0 04/08/24 11:13 Intake & Output 04/07/24 04/08/24 04/08/24 23:59 11:59 23:59 Intake Total 600 / 600 Output Total 400 / 400 425 / 900 475 / 900 Balance -380 / -380 175 / -300 -475 / -300 Weight 70.2 kg 66.451 kg Intake: IV Oral 600 / 600 Output: Urine 400 / 400 425 / 900 475 / 900 Other: Urine Color Light Barbara Light Barbara Urine Appearance Clear Clear Urine Odor None Comment pure wick Voiding Methods Incontinent Toilet Data Completed and Pending Labs on day of discharge: Labs from last 24 hours 04/08/24 04/08/24 04/07/24 05:53 01:55 22:07 WBC 12.24 H RBC 4.16 Hgb 12.5 Hct 38.2 MCV 92 MCH 30.0 MCHC 32.7 RDW 13.2 Plt Count 147 MPV 10.3 Immature Gran % Neutrophils % Lymphocytes % Monocytes % Eosinophils % Basophils % Nucleated RBC % Absolute Neutrophils Absolute Lymphocytes Absolute Monocytes Absolute Eosinophils Absolute Basophils PT INR APTT Sodium 141 Potassium 4.0 Chloride 106 Carbon Dioxide 29.5 Anion Gap 5.5 BUN 16 Creatinine 0.6 Est GFR (CKD-EPI 2020) 92.39 Glucose 99 Calcium 8.7 Magnesium 2.5 H Total Bilirubin 3.2 H AST 12 L ALT 14 Alkaline Phosphatase 58 Troponin I 134 H* 153 H* 119 H* NT-Pro-B Natriuret Pep Total Protein 6.1 L Albumin 3.2 L TSH 0.02 L Free T4 Urine Color Urine Clarity Urine pH Ur Specific Stanton Urine Protein Urine Ketones Urine Blood Urine Nitrite Urine Bilirubin Urine Urobilinogen Ur Leukocyte Esterase Urine RBC Urine WBC Ur Epithelial Cells Urine Crystals Urine Bacteria Urine Casts Urine Mucus Ur Culture Indicated? Urine Glucose Urine Opiates Screen Urine Methadone Screen Ur Barbiturates Screen Ur Tricyclics Screen Ur Amphetamines Screen U Benzodiazepines Scrn Urine Cocaine Screen Ur THC Screen Ethyl Alcohol COVID-19 Source SARS-CoV-2 (PCR) Influenza Type A (PCR) Influenza Type B (PCR) RSV (PCR) 04/07/24 04/07/24 04/07/24 21:05 21:02 18:40 WBC 12.15 H RBC 4.71 Hgb 14.1 Hct 43.4 MCV 92 MCH 29.9 MCHC 32.5 RDW 13.1 Plt Count 144 MPV 9.7 Immature Gran % 0.3 Neutrophils % 93.0 Lymphocytes % 1.8 Monocytes % 4.7 Eosinophils % 0.1 Basophils % 0.1 Nucleated RBC % 0.0 Absolute Neutrophils 11.30 H Absolute Lymphocytes 0.22 L Absolute Monocytes 0.57 Absolute Eosinophils 0.01 Absolute Basophils 0.01 PT 10.2 INR 1.0 APTT 24.5 Sodium 139 Potassium 3.4 L Chloride 103 Carbon Dioxide 26.6 Anion Gap 9.4 BUN 21 H Creatinine 0.7 Est GFR (CKD-EPI 2020) 89.02 Glucose 143 H Calcium 8.9 Magnesium 1.6 L Total Bilirubin 2.6 H AST 18 ALT 14 Alkaline Phosphatase 79 Troponin I < 50 NT-Pro-B Natriuret Pep 245 Total Protein 7.3 Albumin 4.1 TSH 0.02 L Free T4 1.69 H Urine Color Yellow Urine Clarity Clear Urine pH 7.0 Ur Specific [place] 1.020 Urine Protein Negative Urine Ketones 15 H Urine Blood Trace-intact H Urine Nitrite Negative Urine Bilirubin Negative Urine Urobilinogen 0.2 Ur Leukocyte Esterase Negative Urine RBC 0-2 Urine WBC 0-2 Ur Epithelial Cells Rare Urine Crystals Negative Urine Bacteria Negative Urine Casts Negative Urine Mucus Negative Ur Culture Indicated? No Urine Glucose Negative Urine Opiates Screen Negative Urine Methadone Screen Negative Ur Barbiturates Screen Negative Ur Tricyclics Screen Negative Ur Amphetamines Screen Negative U Benzodiazepines Scrn Negative Urine Cocaine Screen Negative Ur THC Screen Negative Ethyl Alcohol < 3.0 COVID-19 Source Nasopharynx SARS-CoV-2 (PCR) Negative Influenza Type A (PCR) Negative Influenza Type B (PCR) Negative RSV (PCR) Negative PFSH All Active Problems (Updated 04/08/24 @ 14:04 by Adrian Gagnon) Stenosis of right carotid artery greater than 50% (Chronic) Hypomagnesemia (Acute) Hypokalemia (Acute) Hypertension (Chronic) Altered mental status (Acute) Abnormality of gait (Acute) Weight loss (Acute) Advanced care planning/counseling discussion (Acute) Palliative care encounter (Acute) UTI (urinary tract infection) (Acute) Pneumonia due to COVID-19 virus (Acute) COVID (Acute) Memory impairment (Acute) Disorder of palatine bone (Acute) Pharyngoesophageal dysphagia (Acute) Anemia due to blood loss, acute (Acute) Diverticula of colon (Acute) H/O Hodgkin's lymphoma (Chronic) Medical History TIA (transient ischemic attack) Hypothyroidism Hypertension Amnesia Asthenia Low back pain Epidermoid cyst Senile hyperkeratosis Transient cerebral ischemia Adjustment disorder Hypoparathyroidism Multiple falls Colitis Hx of radiation therapy Muscle fasciculation Seborrheic keratosis Fatigue Abdominal bloating Abdominal hernia Grief reaction Lingual dysarthria Pain of left thumb Acute low back pain Dermatitis Dumping syndrome Neck mass Sebaceous cyst Weakness Lower GI bleeding GI bleed Postcholecystectomy diarrhea Acute lower GI bleeding Hypertension Hypothyroidism History of Hodgkin's disease Surgical History H/O hernia repair [place] teeth removed History of thyroidectomy Hx of colonoscopy (~05/2022) H/O total knee replacement S/P hernia repair Status post laparoscopic repair of epigastric port hernia w/ mesh. following cholecystectomy in 2014 thyroidectomy Cholecystectomy H/O surgical procedure (10/24/14) a. cholecystectomy 10/25/14 Family History Brother Heart disease Social History Smoking/Tobacco Use Status: Former Tobacco Use Smoking risk assessment performed?: Yes Alcohol Intake: current Alcohol Intake frequency: holidays/special occasions only Alcohol type: wine Drug use: Never Substance use type: does not use Housing: house Do you feel safe at home: Yes Do you feel safe in your relationship?: Yes Time Spent with Patient Time Spent with Patient: <45 minutes Time was spent: preparing to see the patient(eg.review tests), obtaining and/or reviewing separately otained hiistory, ordering medications,tests, procedures, referring, communicating with other health special needs caregiver, indepentently interpreting results, counseling the patient and care coordination
== END 2024-04-08 15:01 | disposition home or self-care (01) ==
LOC: ER 04-08 00:54 → MS 04-08 13:51
PROVIDERS: Admitting Provider Family Medicine; Emergency Provider Emergency Medicine; PCP Family Medicine; Visit Provider Family Medicine
DX: G45.9 Transient cerebral ischemic attack, unspecified (principal); E87.6 Hypokalemia; I10 Essential (primary) hypertension; E83.42 Hypomagnesemia; Z79.899 Other long term (current) drug therapy; Z86.73 Personal history of transient ischemic attack (TIA), and cerebral infarction without residual deficits; Z79.82 Long term (current) use of aspirin; R41.0 Disorientation, unspecified; R41.3 Other amnesia; R13.14 Dysphagia, pharyngoesophageal phase; Z85.71 Personal history of Hodgkin lymphoma; E89.0 Postprocedural hypothyroidism; R26.89 Other abnormalities of gait and mobility; R29.810 Facial weakness
CPT/HCPCS: 00123; 36415; 36416; 70496; 70498; 80053; 80307; 82962; 85027; 87637; 93005; 96365; 96366; 96372; 97161; 99285; J1650; 71046; 80320; 81003; 81015; 83735; 83880; 84439; 84443; 84484; 85025; 85610; 85730; 93010; 99234; J3475; J3490

== ENCOUNTER → 2024-04-10 10:27 | Outpatient (CLI) | payer MEDICARE, BC, SELFPAY ==
--- NOTE | 2024-04-10 | DI.US_ITS ---
APPROVED REPORT EXAM: Comprehensive 2D, Doppler, and color-flow Echocardiogram Patient Location: Out-Patient Wax Cutter: Clementine Cruz RT (R) (CT) [facility] Rhythm: Bradycardia Indications: TIA. Echo Enhancing Agent Indication: Rule Out Septal Defect Agent(s) / Amount(s) Used: Agitated Saline 8.0 cc Agitated Saline 8.0 cc Other Information Study Quality: Adequate Conclusion Mild concentric left ventricular hypertrophy. Ejection fraction is 60 to 65%. Wall motion is normal Normal right ventricular size and function Both atria are normal in size Aortic valve is sclerotic and trileaflet. There is mild aortic stenosis. There is moderate to sever e aortic regurgitation Thickened mitral leaflets, mitral annular calcification, trace mitral regurgitation Estimated right ventricular systolic pressure is 19 mmHg No intracardiac shunting identified with injection of agitated saline Wall motion Left Ventricle The left ventricle is normal size. The left ventricular systolic function is normal. The left ventric ular ejection fraction is within the normal range. Mild concentric left ventricular hypertrophy. Ther e is normal LV segmental wall motion. Left ventricular filling pattern is normal for age. There is no ventricular septal defect visualized. LVEF is 60-65%. Right Ventricle The right ventricle is normal size. The right ventricular systolic function is normal. Moderator band is seen in the right ventricle. Atria The left atrium size is normal. The right atrium size is normal. The interatrial septum is intact wit h no evidence for an atrial septal defect by color flow Doppler or agitated saline injection. Aortic Valve Aortic valve is trileaflet. Aortic valve leaflets are mildly thickened. Mild aortic stenosis. Peak ao rtic valve gradient is 18.1 mmHg. Highest mean aortic valve gradient is 5 mmHg. Calculated PINO by the continuity equation is 2.5 cm2. Moderate to severe aortic regurgitation Mitral Valve Mitral valve leaflets are thickened with posterior annular calcification. No evidence of mitral valve stenosis. There is trivial mitral regurgitation. Tricuspid Valve The tricuspid valve is normal in structure. There is no tricuspid valve stenosis. Trace tricuspid reg urgitation. The RVSP is 19mHg. Pulmonic Valve The pulmonary valve is normal in structure. There is no pulmonic valvular stenosis. Mild pulmonic reg urgitation. Great Vessels The aortic root is normal in size. The pulmonary artery is normal. Aortic arch is normal in caliber. Ascending aorta is normal in caliber. Due to poor image quality, the IVC could not be assessed. Pericardium There is no pericardial effusion. There is no pleural effusion. 2D Dimensions IVSD d PLAX 1.32 cm F: 0.6-1.0 Ao Root d 3.92 cm F: 2.7 - 3.3 LVPW d PLAX 0.90 cm F: 0.6 - 1.0 Ao Asc Diam d 3.43 cm F: 2.3 - 3.1 LVID d PLAX 3.78 cm F: 3.8 - 5.2 Prox Ao Arch 3.3 cm LVDs 2.26 cm F: 2.2 - 3.5 LV EF Teichholz 71.6 % FS 40.17 % LV EDV (Teich) 61.0 mL LV ESV (Teich) 17.3 mL M-Mode TAPSE 3.41 cm (M/F) >1.7 Auto EF LV EDV A4C 119.6 mL LV EDV A2C 125.9 mL LV EDV BP 124.0 mL LV ESV A4C 50.3 mL LV ESV A2C 50.1 mL LV ESV BP 49.6 mL LVEF(%) A4C 58.0 % LVEF(%) A2C 60.2 % LVEF(%) BP 60.0 % LV SV A4C 69.3 ml LV SV A2C 75.8 ml LV SV BP 74.4 ml LV CO A4C 3.5 L/min LV CO A2C 3.8 L/min LV CO BP 3.6 L/min HR A4C 50.21 BPM HR A2C 49.92 BPM LV EDV Index (BP) LV Strain Long Pk Overal Avg (s) 18.34 LA Volume LA Length A4C 5.2 cm LA Length A2C 5.9 cm LA Area A4C s 18.22 cm2 LA Area A2C s 15.03 cm2 LA Vol A4C A-L 54.23 mL LA Vol A2C A-L 32.57 mL LA Vol Biplane A-L 44.7 mL LA Vol/BSA A4C A-L LA Vol/BSA A2C A-L LA Vol/BSA BP A-L 26.1 mL/m2 LA Vol A4C MOD 52.0 mL LA Vol A2C MOD 32.0 mL LA Vol BP MOD 42.7 mL LV Diastology MV E' medial 0.069 (>0.07 m/s) MV E Vmax 0.64 (0.4-1.3 m/s) MV E/E' MED 9.30 (<14) MV A Vmax 0.70 (0.4-1.3 m/s) E/A Ratio 0.9 Aortic Valve AoV Vmax 2.19 m/s LVOT Vmax 1.67 m/s AoV Peak Grad 58.1 mmHg LVOT Peak Grad 11.2 mmHg AoV Area (Vmax) 2.34 cm2 LVOT VTI 0.359 m AoV VTI 0.448 m LVOT Mean Grad 5.2 mmHg AoV Mean Shane. 1.41 m/s LVOT SV 110.44 mL AoV Mean Grad 9.0 mmHg LVOT Diam s 1.95 cm AoV Area (VTI) 2.47 cm2 AV Regurg Peak Gr. 97.00 mmHg Velocity Ratio 0.76 AR Decel [place] 1.6m/sec2 AR DT 3017 msec AR PHT 875 msec AR Vmax 4.92 m/s Mitral Valve MV DT 247 (160-240 msec) Pulmonary Valve RVOT Vmax 0.46 m/s RVOT Peak Gr. 0.8 mmHg RVOT VTI 0.086 m RVOT Mean Gr. 0.5 mmHg FL ED Velocity 1.07 m/s FL ED Grad 4.6 mmHg Tricuspid Valve TV S' 0.19 m/s TR Vmax 2.17 m/s TR Peak Grad 18.8 mmHg
--- NOTE | 2024-04-10 09:30 | DI.MRI_ITS ---
Exam(s) MR BRAIN WO EXAM: MR BRAIN WO CLINICAL HISTORY: TIA,g45.9 TECHNIQUE: Multiplanar multisequence MRI of the brain was performed. COMPARISON: CT CT HEAD CERVICAL SPINE WO from 01/20/[address] BRAIN NECK CTA from 01/20/[address] BRAIN NECK CTA from 04/07/2024 FINDINGS: VENTRICLES AND EXTRA AXIAL SPACES: Normal in size and morphology for the patient's age. MIDLINE SHIFT: None. CEREBRAL PARENCHYMA: No focus of restricted diffusion to suggest acute infarct. No space-occupying le rosy identified. 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 HEMORRHAGE: There are several foci of hypointensity on the gradient images. BRAINSTEM/CEREBELLUM: Normal. CALVARIUM: Normal. VISUALIZED PARANASAL SINUSES/MASTOIDS:Clear. [place]: Normal flow void. PIT[place]: Unremarkable. OTHER FINDINGS: None. IMPRESSION: 1. No evidence of an acute territorial infarct. 2. Multiple hyperintense area in the white matter consistent with chronic microvascular ischemic dise ase. 3. Several foci of hypointensity on the gradient images. Differential considerations include cerebra l amyloid disease, hypertensive microhemorrhages, multiple vascular malformations trauma or possible hemorrhagic metastasis. DATA REPOSITORY:
== END ==
PROVIDERS: PCP Family Medicine; Visit Provider Family Medicine
DX: G45.9 Transient cerebral ischemic attack, unspecified (principal); I36.1 Nonrheumatic tricuspid (valve) insufficiency; I37.1 Nonrheumatic pulmonary valve insufficiency
CPT/HCPCS: 93306; 70551